=== PATIENT | female | born 1935 | race Caucasian/White ===

== ENCOUNTER → 2016-11-06 | Outpatient (CLI) | payer OTHER, BC | LOC: BHFA 10:00 | PROVIDERS: ATTEND Internal Medicine Cardiovascular Disease | DX: I50.9 Heart failure, unspecified (principal) ==

== ENCOUNTER 2017-07-10 12:22 | Emergency (ER) | payer OTHER, BC ==
--- NOTE | 2017-07-10 12:33 | CPEKG ---
Heart Rate: 66 RR Interval: 909 P-R Interval: 236 QRSD Interval: 188 QT Interval: 452 QTC Interval: 474 QRS [place]: -79 T Wave [place]: 102 EKG Severity - ABNORMAL ECG - EKG Impression: ATRIAL-VENTRICULAR DUAL-PACED COMPLEXES EKG Impression: FIRST DEGREE AV BLOCK EKG Impression: LVH WITH IVCD, LAD AND SECONDARY REPOL ABNRM Electronically Signed By: Josh Zeng 10-Jul-2017 12:54:01
--- NOTE | 2017-07-10 12:48 | EDPHY ---
H & P Time Seen by Provider: 07/10/17 12:28 HPI/ROS: CHIEF COMPLAINT: Dyspnea, presyncope HISTORY OF PRESENT ILLNESS: The patient presents to the ED via EMS after she experienced an episode of presyncope while walking to lunch. The patient reports she has chronic dyspnea on exertion and does have CHF. She has a pacemaker. She also believes she has a history of coronary artery disease with stenting x2. The patient denies any chest pain, fever, cough or congestion. The patient reports she has not gained weight. She denies any abdominal pain or dysuria. The patient reports that she is currently feeling better. REVIEW OF SYSTEMS: A comprehensive 10 point review of systems is otherwise negative aside from elements mentioned in the history of present illness. Source: Patient Exam Limitations: No limitations - Medical/Surgical History Hx Asthma: No Hx Chronic Respiratory Disease: No Hx Diabetes: Yes Hx Cardiac Disease: Yes Hx Renal Disease: No Hx Cirrhosis: No Hx Alcoholism: No Hx HIV/AIDS: No Hx Splenectomy or Spleen Trauma: No Other PMH: back surgery 2006 and 2008, pacemaker 2006,niddm,stent 2005 and 2015, - Social History Smoking Status: Never smoked - Physical Exam Exam: General Appearance: Alert, no distress Eyes: Pupils equal and round no pallor or injection ENT, Mouth: Mucous membranes moist Respiratory: There are no retractions, lungs are clear to auscultation Cardiovascular: Regular rate and rhythm Gastrointestinal: Abdomen is soft and nontender, no masses, bowel sounds normal Neurological: A&O, normal motor function, normal sensory exam, normal cranial nerves Skin: Warm and dry, no rashes Musculoskeletal: Neck is supple nontender Extremities: symmetrical, full range of motion Constitutional: Initial Vital Signs Temperature (C) 36.7 C 07/10/17 12:44 Heart Rate 67 07/10/17 12:44 Respiratory Rate 16 07/10/17 12:44 Blood Pressure 156/98 H 07/10/17 12:44 O2 Sat (%) 94 07/10/17 12:44 O2 Delivery Mode Room Air Allergies/Adverse Reactions: ofloxacin [From Floxin] Allergy (Intermediate, Verified 07/10/17 12:42) Rash Home Medications: Medication Instructions Recorded Digoxin [Lanoxin 0.125 mg] 0.125 mg PO DAILY 06/18/12 Multivitamins [Multivitamin (*)] 1 each PO DAILY 02/02/13 Herbals/Supplements -Info Only 1 each PO AD 05/20/13 [place]-3 Fatty Acids [Fish Oil 1000 1,000 mg PO DAILY 05/20/13 mg (*)] Levothyroxine [Synthroid 100 mcg 100 mcg PO DAILY06 07/14/15 (*)] Lisinopril [Zestril 5 mg (*)] 5 mg PO HS 07/14/15 Spironolactone [Aldactone 25 MG 25 mg PO SUWE@09 07/14/15 (*)] Clopidogrel Bisulfate [Plavix (*)] 75 mg PO DAILY #30 tab 07/15/15 Torsemide [Demadex] 10 mg PO DAILY10 #30 tab 08/01/15 Aspirin [Aspirin 81mg (*)] 81 mg PO HS 10/19/15 Insulin Glargine [Lantus 100 35 units SC HS 10/19/15 UNITS/ML (*)] glipiZIDE XL [Glucotrol XL 10 MG 10 mg PO DAILY 10/19/15 (*)] Carvedilol Cr [Coreg Cr] 40 mg PO HS #60 cap 10/20/15 Medical Decision Making - Diagnostics EKG Interpretation: EKG: Complete interpretation has been separately recorded in the [email or web address] archive. Summary impression: Paced rhythm, rate 66 Imaging Results: Imaging Impressions Chest X-Ray 07/10/17 12:46 Impression: 1. Stable mild cardiomegaly. 2. Stable prominence of pulmonary vasculature centrally. This can be seen with pulmonary hypertension 3. Coronary artery stents are now seen involving what appear to be the LAD. ED Course/Re-evaluation: The patient presents the ED after an episode of mild dyspnea which resulted in presyncope. She has a history of chronic heart failure. She is not hypoxemic. She has no evidence of any peripheral edema. Patient's chest x-ray demonstrates no evidence of acute failure. The patient's electrolytes, troponin and EKG are unremarkable. The patient was observed in the emergency department without any recurrent arrhythmia. I re-evaluated the patient at 2:00 p.m.. She is feeling comfortable. She would like to be discharged home. She will follow up with her regular bank operations officer Dr. Sam Jaeger as scheduled. Differential Diagnosis: Differential diagnosis considered includes arrhythmia, anemia, metabolic abnormality, heart failure - Data Points Laboratory Results: Laboratory Results 07/10/17 12:22 07/10/17 12:22 07/10/17 07/10/17 12:22 12:22 WBC 7.52 10^3/uL 10^3/uL (3.80-9.50) RBC 4.48 10^6/uL 10^6/uL (4.18-5.33) Hgb 13.6 g/dL g/dL (12.6-16.3) Hct 41.6 % % (38.0-47.0) MCV 92.9 fL fL (81.5-99.8) MCH 30.4 pg pg (27.9-34.1) MCHC 32.7 g/dL g/dL (32.4-36.7) RDW 14.5 % % (11.5-15.2) Plt Count 162 10^3/uL 10^3/uL (150-400) MPV 10.2 fL fL (8.7-11.7) Neut % (Auto) 40.0 % % (39.3-74.2) Lymph % (Auto) 46.0 % H % (15.0-45.0) [place] % (Auto) 11.6 % % (4.5-13.0) Eos % (Auto) 1.1 % % (0.6-7.6) Baso % (Auto) 0.5 % % (0.3-1.7) Nucleat RBC Rel Count 0.0 % % (0.0-0.2) Absolute Neuts (auto) 3.01 10^3/uL 10^3/uL (1.70-6.50) Absolute Lymphs (auto) 3.46 10^3/uL H 10^3/uL (1.00-3.00) Absolute Monos (auto) 0.87 10^3/uL H 10^3/uL (0.30-0.80) Absolute Eos (auto) 0.08 10^3/uL 10^3/uL (0.03-0.40) Absolute Basos (auto) 0.04 10^3/uL 10^3/uL (0.02-0.10) Absolute Nucleated RBC 0.00 10^3/uL 10^3/uL (0-0.01) Immature Gran % 0.8 % % (0.0-1.1) Immature Gran # 0.06 10^3/uL 10^3/uL (0.00-0.10) Sodium 138 mEq/L mEq/L (135-145) Potassium 5.4 mEq/L H mEq/L (3.5-5.2) Chloride 100 mEq/L mEq/L (97-110) Carbon Dioxide 20 mEq/l L mEq/l (22-31) Anion Gap 18 mEq/L H mEq/L (8-16) BUN 24 mg/dL H mg/dL (7-23) Creatinine 1.0 mg/dL mg/dL (0.6-1.0) Estimated GFR 53 Glucose 175 mg/dL H mg/dL (70-100) Calcium 10.1 mg/dL mg/dL (8.5-10.4) Troponin I 0.016 ng/mL ng/mL (0.000-0.034) NT-Pro-B Natriuret Pep 3770 pg/mL H pg/mL (0-450) Departure - Departure Disposition: Home, Routine, Self-Care Clinical Impression: Vasovagal reaction Condition: Good Instructions: Syncope (DC) Additional Instructions: 1. Please return to the ED for any recurrent passing out, chest pain, difficulty breathing or other concerns. 2. Please follow up with your primary care provider as scheduled. Referrals: Sam Jaeger MD [Medical Doctor] - As per Instructions
[2017-07-10 12:50] VITALS: PULSE 67; TEMP 98.1
[2017-07-10 12:53] LABS: PLATELET COUNT 162 10^3/uL (150-400)
[2017-07-10 14:41] VITALS: BP 144/79; RESP 20; O2SAT 93
== END 2017-07-10 14:38 | disposition home or self-care (01) ==
LOC: EDUNIT# → EDBD
DX: R55 Syncope and collapse (principal); E11.9 Type 2 diabetes mellitus without complications; Z79.4 Long term (current) use of insulin; Z79.82 Long term (current) use of aspirin; Z95.0 Presence of cardiac pacemaker

== ENCOUNTER 2017-07-23 07:56 | Observation (INO) | payer OTHER, BC ==
[2017-07-23] MEDS ORDERED: diphenhydrAMINE 25 MG CAP PO ONE (07:59)
[2017-07-23] MEDS ORDERED: DIAZEPAM 5 MG TAB PO ONE (07:59)
[2017-07-23] MEDS ORDERED: NS 1,000 ML IV ONE (07:59)
[2017-07-23] MEDS ORDERED: FAMOTIDINE 20 MG TAB PO ONE (07:59)
[2017-07-23] MEDS ORDERED: ASPIRIN EC 325 MG TAB PO ONE (07:59)
--- NOTE | 2017-07-23 08:31 | CPEKG ---
Heart Rate: 70 RR Interval: 857 P-R Interval: 196 QRSD Interval: 174 QT Interval: 436 QTC Interval: 471 QRS [place]: -80 T Wave [place]: 106 EKG Severity - ABNORMAL ECG - EKG Impression: ATRIAL-VENTRICULAR DUAL-PACED COMPLEXES EKG Impression: IVCD, CONSIDER ATYPICAL RBBB EKG Impression: LVH WITH IVCD, LAD AND SECONDARY REPOL ABNRM Electronically Signed By: Golden Anaya 23-Jul-2017 09:06:47
[2017-07-23 08:53] LABS: PLATELET COUNT 164 10^3/uL (150-400)
[2017-07-23 09:05] LABS: INR 1.2 (0.83-1.16); PROTIME(PATIENT) 15.4 SEC (12.0-15.0)
[2017-07-23] MEDS ORDERED: LIDOCAINE 1% 300 MG/30 ML SDV ONE (09:17)
[2017-07-23] MEDS ORDERED: fentaNYL 100 MCG/2 ML INJ ONE (09:18)
[2017-07-23] MEDS ORDERED: VERAPAMIL 5 MG/2 ML VIAL ONE (09:18)
[2017-07-23] MEDS ORDERED: HEPARIN 10,000 UNIT/10 ML MDV (1,000 UNIT/ML) ONE ×2 (09:18→11:27)
[2017-07-23] MEDS ORDERED: MIDAZOLAM 2 MG/2 ML VIAL ONE (09:18)
[2017-07-23] MEDS ORDERED: IOPAMIDOL (ISOVUE-370) 150 ML BTL IV ONE (09:19)
--- NOTE | 2017-07-23 10:46 | PDPROPOC ---
Sedation Plan of Care Sedation Plan of Care: vital signs stable, mental status noted, patient educated of risks, benefits, alternatives, patient can tolerate sedation ASA Classification: ASA 2 Planned drugs: fentanyl, midazolam Mallampati Score: Class 1 Mallampati Reference Image: Patient passed 3-3-2 rule?: Yes
--- NOTE | 2017-07-23 10:46 | PDHPUP ---
History & Physical Update H&P update statement: This history and physical update is based on an assessment of the patient which was completed after admission or registration (within 24 hours), but prior to the surgery/procedure. H&P update: H&P reviewed & patient examined, no change in patient's condition since H&P completed
[2017-07-23] MEDS ORDERED: ADENOSINE 90 MG/30 ML VIAL IV ONE ×2 (11:00→11:54)
[2017-07-23] MEDS ORDERED: BIVALIRUDIN 250 MG/5 ML VIAL IV ONE (11:14)
[2017-07-23 15:53] LABS: PLATELET COUNT 159 10^3/uL (150-400)
[2017-07-23] MEDS ORDERED: ONDANSETRON DISINTEGRATING 4 MG TAB PO PRN (15:57)
[2017-07-23] MEDS ORDERED: ACETAMINOPHEN 325 MG TAB PO PRN (15:57)
[2017-07-23] MEDS ORDERED: ONDANSETRON 4 MG/2 ML VIAL IVP PRN (15:57)
--- NOTE | 2017-07-23 16:24 | PDGENHP ---
History and Physical - Chief Complaint Acute syncope - History of Present Illness Primary care provider: Dr. Coni Ricci Primary yarn weight and strength tester: Dr. Sam Jaeger HPI: 82-year-old female presenting with acute syncope characterized by loss of consciousness, unresponsiveness, associated with symptoms of lightheadedness, with onset of symptoms after the patient was ambulating back from the bathroom while she was in the CVC following a diagnostic cardiac catheterization. Her blood pressure prior to the event was a systolic of 117, and then as she was assisted back to bed and evaluated, her systolic blood pressure was 40. The patient was notably unresponsive, was unable to complete a neurologic exam, and did desaturate on her supplemental oxygen. Her heart rhythm remained AV paced, and did not become bradycardic. The duration of symptoms was a couple minutes, and upon awakening patient became fearful, began crying, but denied any pain. The hypotension was initially treated by placing the patient in Trendelenberg, and initiating IV fluids. The systolic blood pressure was alleviated by the bed position changes, and was likely not influenced by the small amount of IV fluid she received prior to her systolic blood pressure returning to around 110. History Information - Allergies/Home Medication List Allergies/Adverse Reactions: ofloxacin [From Floxin] Allergy (Intermediate, Verified 07/10/17 12:42) Rash Home Medications: Digoxin [Lanoxin 0.125 mg] 0.125 mg PO DAILY10 06/18/12 [Last Taken 07/22/17] Multivitamins [Multivitamin (*)] 1 each PO DAILY 02/02/13 [Last Taken 07/22/17] Herbals/Supplements -Info Only 1 each PO AD 05/20/13 [Last Taken 07/22/17] [place]-3 Fatty Acids [Fish Oil 1000 mg (*)] 1,000 mg PO DAILY 05/20/13 [Last Taken 07/22/17] Levothyroxine [Synthroid 100 mcg (*)] 100 mcg PO DAILY06 07/14/15 [Last Taken ] Lisinopril [Zestril 5 mg (*)] 5 mg PO HS 07/14/15 [Last Taken 07/22/17] Insulin Glargine [Lantus 100 UNITS/ML (*)] 35 units SC HS 10/19/15 [Last Taken 07/22/17] glipiZIDE XL [Glucotrol XL 10 MG (*)] 20 mg PO DAILY@08 10/19/15 [Last Taken ] Carvedilol Cr [Coreg Cr] 40 mg PO HS 07/16/17 [Last Taken 07/22/17] Ibuprofen [Motrin (*)] 400 mg PO Q8 PRN 07/16/17 [Last Taken 07/22/17] Torsemide [Demadex 10 MG (RX)] 5 mg PO DAILY10 07/16/17 [Last Taken 07/22/17] I have personally reviewed and updated: family history, medical history, social history, surgical history - Past Medical History coronary artery disease (With previous cardiac stents, most recently in June 2015), CHF (Chronic systolic and diastolic congestive heart failure stage CAtrial tachycardiaCataractsDiabetes mellitus type 2DiverticulitisHypertensionHypothyroidismSick sinus syndromePulmonary hypertensionChronic segmental pulmonary emboli not on systemic anticoagulation) - Surgical History Additional surgical history: Appendectomy, tonsillectomy, partial sigmoidectomy , cholecystectomy. Back surgery x2. Knee surgery - Family History Additional family history: Both parents are , family history of heart disease, leukemia, uterine cancer - Social History Smoking Status: Never smoked Alcohol Use: None Drug Use: None Additional social history: Normally independent in ADLs Review of Systems Review of Systems: ROS: 10pt was reviewed & negative except for what was stated in HPI & below Neurological: Reports: other (Syncope, unresponsiveness) Physical Exam Physical Exam: Constitutional: appears nourished, not in pain, No no apparent distress (Mild distress), No uncomfortable Eyes: PERRL, anicteric sclera, EOMI Ears, Nose, Mouth, Throat: moist mucous membranes, hearing normal, ears appear normal, no oral mucosal ulcers Cardiovascular: systolic murmur (1/6 at the sternum), No irregularly irregular, No tachycardia, No edema Respiratory: no respiratory distress, no rales or rhonchi, clear to auscultation Gastrointestinal: normoactive bowel sounds, soft, non-tender abdomen, no palpable masses, other (No abdominal bruits), No distension Skin: other (No fluctuance at the right groin site, no ecchymoses) Neurologic: AAOx3, sensation intact bilaterally, CN II-XII Intact, No weakness ( Motor strength 5/5 bilateral upper and lower extremities), No facial droop Psychiatric: not encephalopathic, anxious, No agitated Lab Data & Imaging Review 07/23/17 13:45 07/23/17 13:45 WBC 7.08 10^3/uL (3.80-9.50) 07/23/17 13:45 RBC 4.10 10^6/uL (4.18-5.33) L 07/23/17 13:45 Hgb 12.4 g/dL (12.6-16.3) L 07/23/17 13:45 Hct 37.8 % (38.0-47.0) L 07/23/17 13:45 MCV 92.2 fL (81.5-99.8) 07/23/17 13:45 MCH 30.2 pg (27.9-34.1) 07/23/17 13:45 MCHC 32.8 g/dL (32.4-36.7) 07/23/17 13:45 RDW 14.4 % (11.5-15.2) 07/23/17 13:45 Plt Count 159 10^3/uL (150-400) 07/23/17 13:45 MPV 10.2 fL (8.7-11.7) 07/23/17 13:45 Neut % (Auto) 35.7 % (39.3-74.2) L 07/23/17 13:45 Lymph % (Auto) 49.4 % (15.0-45.0) H 07/23/17 13:45 [place] % (Auto) 12.7 % (4.5-13.0) 07/23/17 13:45 Eos % (Auto) 1.0 % (0.6-7.6) 07/23/17 13:45 Baso % (Auto) 0.6 % (0.3-1.7) 07/23/17 13:45 Nucleat RBC Rel Count 0.0 % (0.0-0.2) 07/23/17 13:45 Absolute Neuts (auto) 2.53 10^3/uL (1.70-6.50) 07/23/17 13:45 Absolute Lymphs (auto) 3.50 10^3/uL (1.00-3.00) H 07/23/17 13:45 Absolute Monos (auto) 0.90 10^3/uL (0.30-0.80) H 07/23/17 13:45 Absolute Eos (auto) 0.07 10^3/uL (0.03-0.40) 07/23/17 13:45 Absolute Basos (auto) 0.04 10^3/uL (0.02-0.10) 07/23/17 13:45 Absolute Nucleated RBC 0.00 10^3/uL (0-0.01) 07/23/17 13:45 Immature Gran % 0.6 % (0.0-1.1) 07/23/17 13:45 Immature Gran # 0.04 10^3/uL (0.00-0.10) 07/23/17 13:45 PT 15.4 SEC (12.0-15.0) H 07/23/17 08:40 INR 1.20 (0.83-1.16) H 07/23/17 08:40 Sodium 138 mEq/L (135-145) 07/23/17 13:45 Potassium 4.9 mEq/L (3.5-5.2) 07/23/17 13:45 Chloride 102 mEq/L (97-110) 07/23/17 13:45 Carbon Dioxide 24 mEq/l (22-31) 07/23/17 13:45 Anion Gap 12 mEq/L (8-16) 07/23/17 13:45 BUN 18 mg/dL (7-23) 07/23/17 13:45 Creatinine 0.9 mg/dL (0.6-1.0) 07/23/17 13:45 Estimated GFR 60 07/23/17 13:45 Glucose 90 mg/dL (70-100) 07/23/17 13:45 Calcium 9.1 mg/dL (8.5-10.4) 07/23/17 13:45 Magnesium 2.4 mg/dL (1.6-2.3) H 07/23/17 08:40 Triglycerides 154 mg/dL (35-135) H 07/23/17 08:40 Cholesterol 163 mg/dL (140-220) 07/23/17 08:40 Cholesterol Risk Factr 1.6 (0.2-1.0) H 07/23/17 08:40 LDL Cholesterol, Calc 103 mg/dL (80-100) H 07/23/17 08:40 LDL Risk Factor 1.2 (0.2-1.0) H 07/23/17 08:40 VLDL Cholesterol 30 mg/dL (8-25) H 07/23/17 08:40 Non-HDL Cholesterol 133 mg/dL (90-129) H 07/23/17 08:40 HDL Cholesterol 30 mg/dL (40-85) L 07/23/17 08:40 LDL/HDL Ratio 3.43 RATIO (1.00-3.22) H 07/23/17 08:40 Cholesterol/HDL Ratio 5.43 RATIO (1.00-4.44) H 07/23/17 08:40 Visualized and Interpreted EKG results: Yes EKG Interpretation: Positive for: other (AV paced) Assessment & Plan Assessment: 82-year-old female presents with acute syncope Plan: 1. Syncope. Acute, recurrent, this episode was most likely secondary to acute hypotension which may have been secondary to a vasovagal event exacerbated by hypovolemia, given that her systolic blood pressure rapidly dropped from around 117 to 40, then returning to 110, with minimal intervention. Event took place after the patient and use the bathroom and had been NPO all day. -that being said, I reviewed outside records including history and physical by Dr. Sam Jaeger from 07/15/2017, characterizing the reason for cardiac catheterization which is that the patient has been experiencing exertional shortness of breath with syncope, 3 episodes since early May with associated heart rate,, and it is possible that the patient's syncope is secondary to exertional hypoxia in the setting of chronic pulmonary embolism, as the patient has notably had pulmonary embolism diagnosed on repeat CT angio, as most recent as September of 2015, and has not been on any systemic anticoagulation -at the present time, I will risk stratify her with a D-dimer, given that the patient recently underwent CT with IV contrast of the abdomen to rule out retroperitoneal hemorrhage status post catheterization -if the D-dimer is positive, I will discuss with the cardiology service whether to empirically systemically anticoagulated her, given her recent cardiac catheterization and risk of bleeding, until we are able to obtain either a CT angio of the chest tomorrow or a V/Q scan -the read of the CT of the abdomen is currently pending and I will follow this up to ensure no retroperitoneal hemorrhage -continue monitor blood pressure closely in the PCU -continue to hold any antihypertensive medications 2. Chronic systolic and diastolic congestive heart failure. No evidence of acute exacerbation, currently has NYHA class III and this could also be a cause of her exertional symptoms with pulmonary hypertension noted on the cardiac catheterization today 3. Coronary artery disease. Chronic, no evidence of obstructive lesions on today's catheterization, continue home medications 4. Chronic hypoxic respiratory failure. Continue home supplemental oxygen 5. Sick sinus syndrome. Status post permanent pacemaker, continue monitor on telemetry overnight Diet. Cardiac Prophylaxis. High risk patient, Lovenox 40, may systemically anticoagulated depending on results of above Code. Full at present Disposition. Anticipated discharge is 07/24, pending further workup as outlined above. 45 min of critical care time spent were with this patient, responding to bedside stat team call, evaluating the patient emergently for the issues outlined above including hypotension. Although a stroke team was initially called secondary to her unresponsiveness, after evaluating the patient, I do not believe that the patient is experiencing acute CVA and I do not believe that the stroke protocol is indicated at this time. I have communicated this to the ICU charge nurse, the Tarik, the audience coordinator.
[2017-07-23] MEDS ORDERED: IBUPROFEN 200 MG TAB PO PRN (16:35)
--- NOTE | 2017-07-23 17:07 | PDDXCAT ---
Diagnostic Cath Note - . Date: 07/23/17 Inker: Mil High-risk criteria on non-invasive testing: severe resting left ventricular dysfunction (LVEF<35%) - Procedure Access: right groin Procedure: left heart catheterization, coronary angiography, left ventriculogram , right heart catheterization - Materials Left Heart Cath size: 5F Left Heart Cath materials: standard multipack (JL4, JR4, pigtail) Right Heart Cath size: 7F Right Heart Cath materials: PWP catheter - Findings-Left Heart Catheterization LM: Unobstructed LAD: Stents widely patent with luminal irregularities LCX: Stents patent with luminal irregularities RCA: Dominant: No obstructive lesion identified. EDP: 15 mm of mercury LVEF: 25% with anterior apical dyskinesis - Findings-Right Heart Catheterization RA: 10 mm of mercury RV: 85/12 mm of mercury PA: 85/14 mm of mercury PAOP: 15 mm of mercury Complications: None Estimated blood loss: <50ml Closure method: Angioseal Assessment: Pulmonary hypertension. Patent site of prior stenting. Severe LV dysfunction EF 25% with anteroapical dyskinesis. Plan: Vaso dilator trial. Considerations for Bi V upgrade. Intervention: After reviewing diagnostic right heart catheterization patient was administered adenosine at 50 micrograms/kilos per minute this dose was increased by 50 micrograms/kilos per minute in 2 minutes intervals. At maximum hyperemia there was no significant change in pulmonary artery pressure. New Conclusions negative vaso dilator trial for reversible pulmonary hypertension. Patient Problems: Problems Problem Status Onset CAD (coronary artery disease) Acute Sick sinus syndrome Acute Diabetes mellitus type 2 in obese Acute Pneumonia Acute Elevated troponin Acute Pulmonary embolism Acute
[2017-07-23] MEDS ORDERED: LACTULOSE 20 GM/30 ML UDCUP PO PRN (18:51)
[2017-07-23] MEDS ORDERED: POLYETHYLENE GLYCOL 3350 17 GM PKT PO PRN (18:51)
[2017-07-23] MEDS ORDERED: BISACODYL 10 MG SUPP PR PRN (18:51)
[2017-07-23] MEDS ORDERED: MAGNESIUM HYDROXIDE 30 ML UDCUP PO PRN (18:51)
[2017-07-23] MEDS ORDERED: OXYMETAZOLINE 30 ML NASAL SPRAY EACHNARE PRN (19:59)
[2017-07-23] MEDS ORDERED: INSULIN GLARGINE 35 UNIT SC SCH (21:00)
[2017-07-23] MEDS ORDERED: INSULIN GLARGINE 100 UNITS/ML UNIT SC SCH (21:00)
[2017-07-23] MEDS ORDERED: CARVEDILOL CR 20 MG CAP PO SCH (21:00)
[2017-07-23] MEDS ORDERED: CARVEDILOL CR 40 MG CAP PO SCH (21:30)
[2017-07-23] MEDS: SENNOSIDES/DOCUSATE SODIUM TAB PO SCH (21:43)
[2017-07-24 04:31] LABS: PLATELET COUNT 130 10^3/uL (150-400)
[2017-07-24] MEDS ORDERED: LEVOTHYROXINE 100 MCG TAB PO SCH (06:00)
[2017-07-24] MEDS: SENNOSIDES/DOCUSATE SODIUM TAB PO SCH (07:33)
[2017-07-24 08:27] VITALS: RESP 18; TEMP 97.6; O2SAT 95
[2017-07-24] MEDS ORDERED: OMEGA-3 FATTY ACIDS 1,000 MG CAP PO SCH (09:00)
[2017-07-24] MEDS ORDERED: MULTIVITAMINS 1 EACH TAB PO SCH (09:00)
[2017-07-24] MEDS ORDERED: ENOXAPARIN 40 MG/0.4 ML SYR SC SCH (09:00)
[2017-07-24 09:44] VITALS: BP 120/55
[2017-07-24 09:56] VITALS: PULSE 69
[2017-07-24] MEDS ORDERED: DIGOXIN 125 MCG TAB PO SCH (10:00)
[2017-07-24] MEDS ORDERED: TORSEMIDE 10 MG TAB PO SCH (10:00)
--- NOTE | 2017-07-24 10:21 | PDDCSUM ---
Discharge Summary Discharge Summary: Admission date: 07/23/2017. Disc. knowles date: 07/24/2017. Admission diagnosis shortness of breath Discharge diagnosis 1. Primary pulmonary hypertension without vaso reactivity. 2. Coronary artery disease with revascularization of the LAD and circumflex. 3. Permanent pacemaker 4. 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 5. Chronic back pain. Follow-up Mil 10 days initiation of Bosentan. Procedures: Left right heart catheterization administration of adenosine as vaso dilator challenge. CT scan of the abdomen rule out retroperitoneal bleed. Complications: Vaso vagal event postprocedure. Hospital course: Patient was admitted to the hospital electively for right and left heart catheterization for assessment of progressive dyspnea on exertion. Her stents were found to be widely patent. There was severe LV dysfunction with anterior apical dyskinesis and is an ejection fraction of 25%. Her wedge pressure was 15 mm of mercury as was her LVEDP. Pulmonary artery pressure however was 83/20. As a result she was administered adenosine as a vaso reactive challenge. She was nonreactive. Post procedure she was in recovery when she went up to the bathroom she became lightheaded and somewhat dizzy. There was a question of a stroke. Stroke alert was activated. She was found to have a vasovagal event only. She returned to normal without complications. She was observed overnight with stable hemodynamics. Laboratory data showed no drop in hematocrit. CT of the abdomen revealed no retroperitoneal bleed. Patient is discharged home with follow-up as outlined above. Will focus on her primary pulmonary hypertension at this point. Considerations for biventricular pacing to correct anterior apical dyskinesis. At this point with a wedge of 15 I am not sure how much this would add. Encourage daily activity with clinical follow-up. Questions were answered with her and her family.
--- NOTE | 2017-07-24 10:37 | ASMTCASEMG ---
Living Arrangements What is your living Answers: With Spouse arrangement? Who do you live with? Type Of Residence What kind of residence do Answers: House you live in? Discharge Plan Comments Coordination Status Comments Notes: Pts case discussed in morning rounds. Pt is a 82 y/o female admitted for fatigue and chest pain. CM spoke w/ FADI [place]. Pt has been ambulating around independently. Pt should not have any therapy needs at this time. CM available for changes. Plan: Independent Date Signed: 07/24/2017 10:36 AM Electronically Signed By:MAURY Childers
--- NOTE | 2017-07-24 11:16 | PDHOMEO2F ---
Home Oxygen Face to Face Home Orders: I certify that a physician or a nurse practitioner or physician's seed laboratory assistant has had a [id number] encounter with this patient on the date of this order due to the diagnosis listed, which relates to the primary reason the patient requires home oxygen. Alternative treatments have been tried, or considered, and deemed ineffective. It is anticipated that supplemental oxygen will result in improvement with treatment. Home oxygen qualifying diagnosis: Pulmonary hypertension. Primary severe Home oxygen secondary diagnosis: Cardiomyopathy and heart failure SpO2 on room air (%): 84 Frequency of home oxygen needed: continuous Home oxygen liters per minute: 2 Home oxygen delivery device: nasal cannula Concentrator: Yes E-tanks for mobility and back up: Yes If ordering portable O2, is the patient mobile in the home?: Yes I certify that, based on these findings, the home oxygen is medically necessary for this patient for the following length of time. Length of time home oxygen needed: 99 years
--- NOTE | 2017-07-24 12:21 | PDIAF ---
- Diagnosis Diagnosis: syncope Code Status: Full Code - Medication Management Discharge Medications: Medications to Continue on Transfer Digoxin [Lanoxin 0.125 mg] 0.125 mg PO DAILY10 06/18/12 [Last Taken 07/22/17] Multivitamins [Multivitamin (*)] 1 each PO DAILY 02/02/13 [Last Taken 07/22/17] Herbals/Supplements -Info Only 1 each PO AD 05/20/13 [Last Taken 07/22/17] [place]-3 Fatty Acids [Fish Oil 1000 mg (*)] 1,000 mg PO DAILY 05/20/13 [Last Taken 07/22/17] Levothyroxine [Synthroid 100 mcg (*)] 100 mcg PO DAILY06 07/14/15 [Last Taken ] Lisinopril [Zestril 5 mg (*)] 5 mg PO HS 07/14/15 [Last Taken 07/22/17] Insulin Glargine [Lantus 100 UNITS/ML (*)] 35 units SC HS 10/19/15 [Last Taken 07/22/17] glipiZIDE XL [Glucotrol XL 10 MG (*)] 20 mg PO DAILY@08 10/19/15 [Last Taken ] Carvedilol Cr [Coreg Cr] 40 mg PO HS 07/16/17 [Last Taken 07/22/17] Ibuprofen [Motrin (*)] 400 mg PO Q8 PRN 07/16/17 [Last Taken 07/22/17] Torsemide [Demadex 10 MG (RX)] 5 mg PO DAILY10 07/16/17 [Last Taken 07/22/17] Oxymetazoline HCl [Afrin Nasal [place] (OTC)] 2 sprays EACHNARE HS PRN 07/23/17 [ Last Taken 07/22/17] Discharge Medications: Refer to the Discharge Home Medication list for PRN reason. - Orders Services needed: Home Care, Physical Therapy Home Care Face to Face: I certify that this patient was under my care and that I had the required [id number] encounter meeting the encounter requirements on the discharge day. My findings support the fact that the patient is homebound as defined in Home Care Face to Face Continued: CMS Chapter 7 Medicare Benefits Manual 30.1.1 , The condition of the patient is such that there exists a normal inability to leave home and consequently, leaving home would require a considerable and taxing effort. Diet Recommendation: no restrictions on diet Diet Texture: Regular Texture Diet - Follow Up Care Current Providers and Referrals: Coni Ricci DO [Primary Care Provider] - Sam Jaeger MD [Medical Doctor] - follow up in 10 days
--- NOTE | 2017-07-25 14:30 | ASDISCHSUM ---
Discharge Information Plan Status:Home with Home Health Medically Cleared to Leave:07/23/2017 Discharge Date:07/24/2017 02:00 PM CM D/C Disposition: ADT D/C Disposition:Home, Routine, Self-Care Projected Discharge Date:07/24/2017 11:00 AM Transportation at D/C: Discharge Delay Reason: Follow-Up Date:07/24/2017 11:00 AM Discharge Slot: Final Diagnosis: Placement Information Referral Type:*Home Health Care Services Referral ID:[id number] Provider Name:[facility] Address 1:[address] [place] [address] Address 2: City:[place] Selection Factors: State:[place] Patient Contact Information Contact Name:DAMON Relationship: Address:[address] City:[place] Alternate Phone: State/Zip Code:[place] [address] Email: Financial Information Financial Class:Medicare Primary Plan Desc:MEDICARE OUTPATIENT Primary Plan Number:[id number] Secondary Plan Desc:[employer] [facility] Secondary Plan Number:[id number] Assessment Information [facility] Initial CM Assessment Living Arrangements What is your living Answers: With Spouse arrangement? Who do you live with? Type Of Residence What kind of residence do Answers: House you live in? Discharge Plan Comments Coordination Status Comments Notes: Pts case discussed in morning rounds. Pt is a 82 y/o female admitted for fatigue and chest pain. CM spoke w/ FADI [place]. Pt has been ambulating around independently. Pt should not have any therapy needs at this time. CM available for changes. Plan: Independent Date Signed: 07/24/2017 10:36 AM Electronically Signed By:MAURY Childers Case Management Discharge Plan Note Case Management Discharge Discharge Order Complete? Answers: Yes Patient to Obtain Answers: Independently Medications Transportation Arranged Answers: Family/Friends EMTALA Complete Answers: No Case Management Transport Answers: No Form Complete Faxed Final Orders Answers: Yes Agency/Facility Transfer Answers: Yes Report Printed & Faxed to Receiving Agency Family Notified Answers: Yes Discharge Comments Notes: CM spoke w/ Floresita, the physical therapist. Floresita is recommending HC. CM met w/ pt and daughter for dispo planning. Pt is agreeable to having HC through [facility]. Referral made to [facility]. [facility] is able to accept. CM provided phone number to give report to FADI Mayberry. CM available for changes. Plan: HC; PT Date Signed: 07/24/2017 12:44 PM Electronically Signed By:MAURY Childers Intervention Information Intervention Type:*VICTOR HUGO-Signed Date of Service:07/24/2017 10:31 AM Patient Type:Observation Staff Member:Katie Sebastian Hours: Discipline: Severity: Comment:
== END 2017-07-24 14:00 | disposition home health service (06) ==
LOC: FCATH 07:56 → F2W 15:37
PROVIDERS: ADMIT Internal Medicine; ATTEND Internal Medicine Interventional Cardiology
DX: R55 Syncope and collapse (principal); I27.0 Primary pulmonary hypertension; I50.42 Chronic combined systolic (congestive) and diastolic (congestive) heart failure; E86.1 Hypovolemia; I95.9 Hypotension, unspecified; J96.11 Chronic respiratory failure with hypoxia; R53.83 Other fatigue; I25.10 Atherosclerotic heart disease of native coronary artery without angina pectoris; I25.5 Ischemic cardiomyopathy; G89.29 Other chronic pain; I27.82 Chronic pulmonary embolism; M54.9 Dorsalgia, unspecified; E11.9 Type 2 diabetes mellitus without complications; E03.9 Hypothyroidism, unspecified; R40.2413 Glasgow coma scale score 13-15, at hospital admission; I49.5 Sick sinus syndrome; Z82.49 Family history of ischemic heart disease and other diseases of the circulatory system; Z79.4 Long term (current) use of insulin; Z79.82 Long term (current) use of aspirin; Z95.5 Presence of coronary angioplasty implant and graft; Z95.0 Presence of cardiac pacemaker; Z99.81 Dependence on supplemental oxygen
CPT/HCPCS: 74176; 93005; 93460; 93463; 97161; C1760; C1769; G0378; G0379; G8978; G8979; G8980; J0153; J1644; J1650; J1815; J2250; J3010; Q9967; J0583

== ENCOUNTER → 2018-01-09 | Outpatient (CLI) | payer OTHER, BC | LOC: CIMAGING 16:33 | PROVIDERS: ATTEND Family Medicine | DX: I50.22 Chronic systolic (congestive) heart failure (principal); R10.9 Unspecified abdominal pain; R14.0 Abdominal distension (gaseous) | CPT/HCPCS: 71046-PO; 74018-PO ==

== ENCOUNTER 2018-04-11 00:17 | Observation (INO) | payer OTHER, BC ==
--- NOTE | 2018-04-11 00:25 | EDPHY ---
H & P Time Seen by Provider: 04/11/18 00:21 HPI/ROS: Chief Complaint: Chest pain HPI: 83-year-old woman woke with substernal chest pain, 03/04 this morning. Patient states she has been under a great deal of stress lately as her ' s recently in the hospital. Pain is described as a tightness in her central chest. It is much better now after receiving fentanyl from EMS. She arrived as a cardiac alert based on concerning ECG changes per EMS. She also complains of having increasing fatigue. She had a similar episode 2 years ago and was evaluated had negative workup at that time. No fevers or chills. No cough. No nausea or vomiting. She is currently pain-free. ROS: 10 systems were reviewed and were negative except those elements noted in the HPI. PMH: Pacemaker Social History: No smoking, no alcohol, no recreational drug use Family History: non-contributory Physical Exam: Gen: Awake, Alert, No Distress HEENT: Nose: no rhinorrhea Eyes: PERRLA, EOMI Mouth: Moist mucosa Neck: Supple, no JVD Chest: nontender, lungs clear to auscultation Heart: S1, S2 normal, no murmur Abd: Soft, non-tender, no guarding Back: no CVA tenderness, no midline tenderness Ext: no edema, non-tender Skin: no rash Neuro: CN II-XII intact, Sensation grossly intact, Strength 5/5 in bilateral upper and lower extremities - Medical/Surgical History Hx Asthma: No Hx Chronic Respiratory Disease: No Hx Diabetes: Yes Hx Cardiac Disease: Yes Hx Renal Disease: No Hx Cirrhosis: No Hx Alcoholism: No Hx HIV/AIDS: No Hx Splenectomy or Spleen Trauma: No Other PMH: back surgery 2006 and 2008, pacemaker 2006,sss, niddm,stent 2005 and 2015, CAD, Diabetes, CHF, HTN, hypothyroidism - Social History Smoking Status: Never smoked Constitutional: Initial Vital Signs Temperature (C) 36.3 C 04/11/18 00:19 Heart Rate 69 04/11/18 00:19 Respiratory Rate 16 04/11/18 00:19 Blood Pressure 150/75 H 04/11/18 00:19 O2 Sat (%) 97 04/11/18 00:19 O2 Delivery Mode Nasal Cannula O2 (L/minute) 2 Allergies/Adverse Reactions: ofloxacin Allergy (Unknown, Verified 01/07/18 15:42) Rash Home Medications: Medication Instructions Recorded Digoxin [Lanoxin 0.125 mg] 0.125 mg PO DAILY10 06/18/12 Multivitamins [Multivitamin (*)] 1 each PO DAILY 02/02/13 Herbals/Supplements -Info Only 1 each PO AD 05/20/13 [place]-3 Fatty Acids [Fish Oil 1000 1,000 mg PO DAILY 05/20/13 mg (*)] Levothyroxine [Synthroid 100 mcg 100 mcg PO DAILY06 07/14/15 (*)] Lisinopril [Zestril 5 mg (*)] 5 mg PO HS 07/14/15 Insulin Glargine [Lantus 100 35 units SC HS 10/19/15 UNITS/ML] glipiZIDE XL [Glucotrol XL 10 MG 20 mg PO DAILY@08 10/19/15 (*)] Carvedilol Cr [Coreg Cr] 40 mg PO HS 07/16/17 Ibuprofen [Motrin (*)] 400 mg PO Q8 PRN 07/16/17 Torsemide [Demadex 10 MG (RX)] 5 mg PO DAILY10 07/16/17 Oxymetazoline HCl [Afrin Nasal 2 sprays EACHNARE HS PRN 07/23/17 [place] (OTC)] Medical Decision Making - Diagnostics EKG Interpretation: ECG time 12:15 a.m., ventricularly paced rhythm ED Course/Re-evaluation: 83-year-old with a history of coronary disease presenting with substernal chest pain. She has a paced rhythm. Troponin is negative. Patient is pain free. She received aspirin by EMS. She will be admitted to the hospitalist service for cardiac rule out. - Data Points Laboratory Results: Laboratory Results 04/11/18 00:38 04/11/18 00:38 04/11/18 04/11/18 04/11/18 00:38 00:38 00:23 WBC 6.31 10^3/uL 10^3/uL (3.80-9.50) RBC 4.27 10^6/uL 10^6/uL (4.18-5.33) Hgb 12.6 g/dL g/dL (12.6-16.3) Hct 37.7 % L % (38.0-47.0) MCV 88.3 fL fL (81.5-99.8) MCH 29.5 pg pg (27.9-34.1) MCHC 33.4 g/dL g/dL (32.4-36.7) RDW 16.0 % H % (11.5-15.2) Plt Count 171 10^3/uL 10^3/uL (150-400) MPV 10.6 fL fL (8.7-11.7) Neut % (Auto) 30.3 % L % (39.3-74.2) Lymph % (Auto) 52.9 % H % (15.0-45.0) [place] % (Auto) 14.9 % H % (4.5-13.0) Eos % (Auto) 1.1 % % (0.6-7.6) Baso % (Auto) 0.5 % % (0.3-1.7) Nucleat RBC Rel Count 0.0 % % (0.0-0.2) Absolute Neuts (auto) 1.91 10^3/uL 10^3/uL (1.70-6.50) Absolute Lymphs (auto) 3.34 10^3/uL H 10^3/uL (1.00-3.00) Absolute Monos (auto) 0.94 10^3/uL H 10^3/uL (0.30-0.80) Absolute Eos (auto) 0.07 10^3/uL 10^3/uL (0.03-0.40) Absolute Basos (auto) 0.03 10^3/uL 10^3/uL (0.02-0.10) Absolute Nucleated RBC 0.00 10^3/uL 10^3/uL (0-0.01) Immature Gran % 0.3 % % (0.0-1.1) Immature Gran # 0.02 10^3/uL 10^3/uL (0.00-0.10) Sodium 137 mEq/L mEq/L (135-145) Potassium 5.1 mEq/L H mEq/L (3.3-5.0) Chloride 100 mEq/L mEq/L (97-110) Carbon Dioxide 24 mEq/l mEq/l (22-31) Anion Gap 13 mEq/L mEq/L (6-14) BUN 26 mg/dL H mg/dL (7-23) Creatinine 0.9 mg/dL mg/dL (0.6-1.0) Estimated GFR 60 Glucose 184 mg/dL H mg/dL (70-100) Calcium 9.8 mg/dL mg/dL (8.5-10.4) POC Troponin I 0.04 ng/mL ng/mL (0.00-0.08) Point of Care Test Results: Chemistry 04/11/18 00:23 POC Troponin I 0.04 ng/mL ng/mL (0.00-0.08) Departure - Departure Disposition: [facility] Inpatient Acute Clinical Impression: Chest pain Condition: Fair Referrals: Patient,NotPresent [Primary Care Provider] - As per Instructions
[2018-04-11 00:59] LABS: PLATELET COUNT 171 10^3/uL (150-400)
[2018-04-11] MEDS ORDERED: ONDANSETRON 4 MG/2 ML VIAL IVP PRN (01:12)
[2018-04-11] MEDS ORDERED: HYDROCODONE/APAP 5/325 TAB PO PRN (01:12)
[2018-04-11] MEDS ORDERED: ACETAMINOPHEN 325 MG TAB PO PRN (01:12)
[2018-04-11] MEDS ORDERED: ONDANSETRON DISINTEGRATING 4 MG TAB PO PRN (01:12)
[2018-04-11] MEDS ORDERED: LORazepam 0.5 MG TAB PO PRN (01:12)
[2018-04-11] MEDS ORDERED: NITROGLYCERIN 0.4 MG BTL SL PRN (01:18)
[2018-04-11 01:38] LABS: INR 1.11 (0.83-1.16); PROTIME(PATIENT) 14.5 SEC (12.0-15.0)
[2018-04-11 05:42] LABS: CREATINE KINASE 45 IU/L (0-156)
--- NOTE | 2018-04-11 06:43 | PDGENHP ---
History and Physical - Chief Complaint Chest pain - History of Present Illness Source-patient provides history appears reliable. EMR was reviewed and case discussed with ED provider. Patient's son and [id number] are at bedside. EMR was reviewed and case discussed with ED provider. HPI-pleasant 83-year-old female with past medical history significant for chronic atrial fibrillation, sick sinus syndrome status post pacer on the right , dm 2, HTN, CAD with history of stenting in 2005 and 2016, chronic nocturnal hypoxia with supplemental O2 at , pulmonary hypertension, CHF, hypothyroidism who presents emergency department today with sudden onset of left-sided chest pressure and tightness. Patient reports she had just walked to the bathroom from bed as she is chronically on diuretics when she suddenly developed her symptoms. It was constant squeezing type pain. Patient denies any associated shortness of breath. No diaphoresis. No nausea or vomiting. Pain did not radiate anywhere. EMS was called and her pain was relieved after she received a dose of fentanyl. Patient denies any anxiety however she does note she has been quite stressed out recently with her having been in the hospital and now back at home with increased care needs. Patient reports that she had been traveling daily to the hospital and has been increasingly become fatigued with exertion. She denies any PND. No lower extremity edema. No orthopnea. Patient denies any cough or shortness of breath had History Information - Allergies/Home Medication List Allergies/Adverse Reactions: ofloxacin Allergy (Unknown, Verified 01/07/18 15:42) Rash Home Medications: Digoxin [Lanoxin 0.125 mg] 0.125 mg PO DAILY10 06/18/12 [Last Taken 07/22/17] Multivitamins [Multivitamin (*)] 1 each PO DAILY 02/02/13 [Last Taken 07/22/17] Herbals/Supplements -Info Only 1 each PO AD 05/20/13 [Last Taken 07/22/17] [place]-3 Fatty Acids [Fish Oil 1000 mg (*)] 1,000 mg PO DAILY 05/20/13 [Last Taken 07/22/17] Levothyroxine [Synthroid 100 mcg (*)] 100 mcg PO DAILY06 07/14/15 [Last Taken ] Lisinopril [Zestril 5 mg (*)] 5 mg PO HS 07/14/15 [Last Taken 07/22/17] Insulin Glargine [Lantus 100 UNITS/ML] 35 units SC HS 10/19/15 [Last Taken 07/22] glipiZIDE XL [Glucotrol XL 10 MG (*)] 20 mg PO DAILY@08 10/19/15 [Last Taken ] Carvedilol Cr [Coreg Cr] 40 mg PO HS 07/16/17 [Last Taken 07/22/17] Ibuprofen [Motrin (*)] 400 mg PO Q8 PRN 07/16/17 [Last Taken 07/22/17] Torsemide [Demadex 10 MG (RX)] 5 mg PO DAILY10 07/16/17 [Last Taken 07/22/17] Oxymetazoline HCl [Afrin Nasal [place] (OTC)] 2 sprays EACHNARE HS PRN 07/23/17 [ Last Taken 07/22/17] I have personally reviewed and updated: family history, medical history, social history, surgical history - Past Medical History coronary artery disease (With previous cardiac stents, most recently in June 2015), CHF (Chronic systolic and diastolic congestive heart failure stage CAtrial tachycardiaCataractsDiabetes mellitus type 2DiverticulitisHypertensionHypothyroidismSick sinus syndromePulmonary hypertensionChronic segmental pulmonary emboli not on systemic anticoagulation) Additional medical history: Chronic Atrial fibrillation, sick sinus syndrome status post pacer, dm 2, HTN, CAD status post stent 2005 2015, systolic and diastolic CHF last echo 2015 EF of 30-35%, hypothyroidism, hard of hearing uses hearing aid, nocturnal hypoxia on supplemental oxygen at HS, pulmonary hypertension, diverticulitis - Surgical History Additional surgical history: Tonsillectomy. partial sigmoidectomy for diverticulitis with concurrent appy. cholecystectomy. Back surgery x2 (2006 and 2008). Knee surgery - Family History Additional family history: Both parents are , family history of heart disease, leukemia, uterine cancer, brothers, sisters and son with history of CHF and pacemakers - Social History Smoking Status: Never smoked Additional social history: Normally independent in ADLs. Patient for nearly 66 years. Lives with her . Children live locally and supportive. Cor status is full code but patient does not want prolonged resuscitation or life support. Review of Systems Review of Systems: ROS: 10pt was reviewed & negative except for what was stated in HPI & below Cardiac: Reports: chest pain. Denies: edema Respiratory: Denies: shortness of breath Neurological: Reports: anxiety (Patient reports significant stressors) Physical Exam Physical Exam: Selected Entries 04/11/18 00:19 Blood Pressure Automatic Method Heart Rate 69 Respiratory 16 Rate O2 Sat (%) 97 Temperature (C) 36.3 C Blood Pressure 150/75 H Mean Arterial 100 Pressure (MAP) O2 (L/minute) 2 O2 Delivery Nasal Cannula Mode Temperature Oral Source Temp Pulse Resp BP Pulse Ox 37.0 C 70 18 127/65 H 94 04/11/18 06:15 04/11/18 06:15 04/11/18 06:15 04/11/18 06:15 04/11/18 06:15 Constitutional: no apparent distress, chronically ill appearing, other (NAD. Pleasant elderly frail-appearing female is lying quietly in bed. Family at bedside.) Eyes: PERRL, anicteric sclera, EOMI Ears, Nose, Mouth, Throat: moist mucous membranes, hard of hearing Cardiovascular: regular rate and rhythym, no murmur, rub, or gallop (Slightly distant heart sounds.), pulses symmetric bilaterally Peripheral Pulses: 1+: dorsalis-pedis (R), dorsalis-pedis (L) Respiratory: no respiratory distress, no rales or rhonchi, clear to auscultation , reduced air movement (Decreased inspiratory effort bibasilarly. No wheezes or rhonchi.) Gastrointestinal: normoactive bowel sounds, soft, non-tender abdomen, no palpable masses, No distension Genitourinary: no bladder tenderness, No pacheco in urethra Skin: warm, normal color, no rashes or abrasions Musculoskeletal: full muscle strength (Patient able to sit up independently. Moves all extremities while lying in bed.) Neurologic: AAOx3, sensation intact bilaterally, other (Grossly nonfocal exam.) , No facial droop Psychiatric: interacting appropriately, not encephalopathic, thought process linear, anxious, No depressed, No suicidal ideation, No agitated, No poor insight, No poor judgement, No poor memory Lab Data & Imaging Review 04/11/18 00:38 04/11/18 05:25 WBC 6.31 10^3/uL (3.80-9.50) 04/11/18 00:38 RBC 4.27 10^6/uL (4.18-5.33) 04/11/18 00:38 Hgb 12.6 g/dL (12.6-16.3) 04/11/18 00:38 Hct 37.7 % (38.0-47.0) L 04/11/18 00:38 MCV 88.3 fL (81.5-99.8) 04/11/18 00:38 MCH 29.5 pg (27.9-34.1) 04/11/18 00:38 MCHC 33.4 g/dL (32.4-36.7) 04/11/18 00:38 RDW 16.0 % (11.5-15.2) H 04/11/18 00:38 Plt Count 171 10^3/uL (150-400) 04/11/18 00:38 MPV 10.6 fL (8.7-11.7) 04/11/18 00:38 Neut % (Auto) 30.3 % (39.3-74.2) L 04/11/18 00:38 Lymph % (Auto) 52.9 % (15.0-45.0) H 04/11/18 00:38 [place] % (Auto) 14.9 % (4.5-13.0) H 04/11/18 00:38 Eos % (Auto) 1.1 % (0.6-7.6) 04/11/18 00:38 Baso % (Auto) 0.5 % (0.3-1.7) 04/11/18 00:38 Nucleat RBC Rel Count 0.0 % (0.0-0.2) 04/11/18 00:38 Absolute Neuts (auto) 1.91 10^3/uL (1.70-6.50) 04/11/18 00:38 Absolute Lymphs (auto) 3.34 10^3/uL (1.00-3.00) H 04/11/18 00:38 Absolute Monos (auto) 0.94 10^3/uL (0.30-0.80) H 04/11/18 00:38 Absolute Eos (auto) 0.07 10^3/uL (0.03-0.40) 04/11/18 00:38 Absolute Basos (auto) 0.03 10^3/uL (0.02-0.10) 04/11/18 00:38 Absolute Nucleated RBC 0.00 10^3/uL (0-0.01) 04/11/18 00:38 Immature Gran % 0.3 % (0.0-1.1) 04/11/18 00:38 Immature Gran # 0.02 10^3/uL (0.00-0.10) 04/11/18 00:38 PT 14.5 SEC (12.0-15.0) 04/11/18 01:20 INR 1.11 (0.83-1.16) 04/11/18 01:20 APTT 27.5 SEC (23.0-38.0) 04/11/18 01:20 Sodium 137 mEq/L (135-145) 04/11/18 00:38 Potassium 4.9 mEq/L (3.3-5.0) 04/11/18 05:25 Chloride 100 mEq/L (97-110) 04/11/18 00:38 Carbon Dioxide 24 mEq/l (22-31) 04/11/18 00:38 Anion Gap 13 mEq/L (6-14) 04/11/18 00:38 BUN 26 mg/dL (7-23) H 04/11/18 00:38 Creatinine 0.9 mg/dL (0.6-1.0) 04/11/18 00:38 Estimated GFR 60 04/11/18 00:38 Glucose 184 mg/dL (70-100) H 04/11/18 00:38 Calcium 9.8 mg/dL (8.5-10.4) 04/11/18 00:38 Creatine Kinase 45 IU/L (0-156) 04/11/18 05:25 CK-MB (CK-2) Fraction 2.26 ng/mL (0.00-4.55) 04/11/18 05:25 POC Troponin I 0.04 ng/mL (0.00-0.08) 04/11/18 00:23 Troponin I 0.031 ng/mL (0.000-0.034) 04/11/18 05:25 TSH 4.030 uIU/mL (0.465-4.680) 04/11/18 05:25 Visualized and Interpreted EKG results: Yes EKG additional interpertation: The paced rhythm Assessment & Plan Assessment: Pleasant 83-year-old female with past medical history significant for chronic atrial fibrillation, sick sinus syndrome status post pacer on the right, dm 2, HTN, CAD, CHF, hypothyroid, pulmonary hypertension who presents emergency department today with complaints of sudden onset of left chest tightness and pain #Chest pain (Acute) - differential diagnosis including less likely ACS or angina vs. Anxiety versus stress cardiomyopathy vs GI etiology or esophageal spasm vs less likely PE. Patient reports that prior to her onset of symptoms she had taken some milk of magnesia for constipation and GI upset. She has not had any recent anginal type symptoms and her last cardiac catheterization was in 2016. She has not had a stress test since that time. She is followed by [facility] however cannot recall name of her primary shelter case manager at this time. Patient's HEART score is 4. Patient has not had any additional symptoms since prior to arrival after receiving fentanyl. Rule out testing and anticipate a nuclear stress test later this morning. Patient does not have any evidence of CHF decompensation. # CAD - history of stenting x2. Patient is on lisinopril and Coreg # hyperkalemia - mildly elevated patient reports that she is on spironolactone. Holding a.m. Dose, recheck potassium # chronic atrial fibrillation/sick sinus syndrome status post pacer. Patient is not on any anticoagulation. Continue patient's beta larry and digoxin. # chronic diastolic and systolic CHF compensated - patient without any evidence of decompensation. Resume patient's torsemide and spironolactone when diet advanced. #dm 2 - resume patient's glipizide when diet is advanced. She utilizes 35 units of Lantus at HS. Will place patient on a low-dose sliding scale and Accu- Cheks. # benign essential HTN - blood pressures are acceptable at this time. Resume patient's diuretic therapy lisinopril and Coreg when diet advanced. # hypothyroidism - continue patient's levothyroxine replacement. # pulmonary hypertension - continue with diuretic therapy in supplemental oxygen. # nocturnal hypoxia - O2 at HS FEN - SLIV. NPO anticipating stress test in the morning. If negative then transition to cardiac diet. PPX-SCDs. Holding anticoagulation pending stress testing. Cor status-full Disposition-patient admitted observation status on PCU floor for close cardiac monitoring pending cardiac workup.
[2018-04-11] MEDS ORDERED: D50W 25 GM/50 ML SYR IVP PRN (07:07)
[2018-04-11] MEDS: INSULIN LISPRO 100 UNIT/ML SC SCH ×2 (08:59→12:53)
[2018-04-11] MEDS ORDERED: ASPIRIN 325 MG TAB PO SCH (09:00)
--- NOTE | 2018-04-11 11:23 | PDCARCONS ---
Cardiology Consult Reason for Consult: Episode of chest pressure Chief Complaint: Tired Requesting Physician: Hospital service History of Present Illness: 83-year-old female well known to me history of ischemic cardiomyopathy ejection fraction of 30%, last angiogram 2016 revealing a patent LAD stent with 50% distal LAD disease, 85% circumflex stenosis that has been stable. She has been in relatively poor health. This has been complicated by the illness of her . He recently was discharged home where she has had to become a more prominent caregiver. This is in the setting of significant family stress. She was really becoming exhausted. She had an episode of squeezing in her left breast that was self limited. This was associated with profound fatigue and she came to the emergency department today she is still exhausted but had no further discomfort. This pain did not radiate to her arm or jaw is not associated with significant nausea vomiting or diaphoresis. She denies fever or chills. She has had no abdominal pain diarrhea or constipation. She hematemesis or melena. History Information - Allergies/Home Medication List Allergies/Adverse Reactions: ofloxacin Allergy (Unknown, Verified 01/07/18 15:42) Rash Home Medications: Digoxin [Lanoxin 0.125 mg] 0.125 mg PO DAILY@06/18/12 [Last Taken 04/10/18 08 :00] Multivitamins [Multivitamin (*)] 1 tab PO DAILY 02/02/13 [Last Taken 07/22/17] Herbals/Supplements -Info Only 1 each PO 05/20/13 [Last Taken 04/10/18 08:00] [place]-3 Fatty Acids [Fish Oil 1000 mg (*)] 1,000 mg PO DAILY@05/20/13 [Last Taken 04/10/18 08:00] Levothyroxine [Synthroid 100 mcg (*)] 100 mcg PO DAILY06 07/14/15 [Last Taken 08:00] Lisinopril [Zestril 5 mg (*)] 5 mg PO 07/14/15 [Last Taken 04/10/18 21:00] Insulin Glargine [Lantus 100 UNITS/ML] 30 units SC 10/19/15 [Last Taken 04/10 21:00] glipiZIDE XL [Glucotrol XL 10 MG (*)] 20 mg PO DAILY@10/19/15 [Last Taken 08:00] Ibuprofen [Motrin (*)] 400 mg PO Q8 PRN 07/16/17 [Last Taken 04/04/18] Torsemide [Demadex 10 MG (RX)] 5 mg PO DAILY10 07/16/17 [Last Taken 04/09/18] Oxymetazoline HCl [Afrin Nasal [place] (OTC)] 2 sprays EACHNARE HS 07/23/17 [Last Taken 04/10/18 21:00] Carvedilol Phosphate [Coreg Cr] 40 mg PO HS 04/11/18 [Last Taken 04/10/18 21:00] Magnesium Hydroxide [Milk of Magnesia] 30 ml PO Q6H PRN 04/11/18 [Last Taken 21:00] Spironolactone [Aldactone 25 MG (*)] 12.5 mg PO Q2D@09 04/11/18 [Last Taken ] I have personally reviewed and updated: family history, medical history, social history, surgical history Past Medical History: - Past Medical History coronary artery disease - Surgical History Reports: coronary stent - Family History Positive for: non-pertinent - Social History Smoking Status: Never smoked Physical Exam Physical Exam: Temp Pulse Resp BP Pulse Ox 36.6 C 92 18 109/55 L 93 04/11/18 08:20 04/11/18 08:20 04/11/18 08:20 04/11/18 08:20 04/11/18 08:20 Constitutional: not in pain Eyes: anicteric sclera Ears, Nose, Mouth, Throat: dry mucous membranes Cardiovascular: systolic murmur, irregularly irregular Peripheral Pulses: 1+: femoral (R), femoral (L) Respiratory: no respiratory distress, no rales or rhonchi Gastrointestinal: normoactive bowel sounds, soft, non-tender abdomen Genitourinary: no bladder fullness Skin: warm, No rash Musculoskeletal: no muscle tenderness Neurologic: AAOx3, No facial droop Psychiatric: interacting appropriately, depressed Lymph, Heme, Immunologic: no cervical LAD, no supraclavicular LAD Lab and Imaging 04/11/18 00:38 04/11/18 05:25 WBC 6.31 10^3/uL (3.80-9.50) 04/11/18 00:38 RBC 4.27 10^6/uL (4.18-5.33) 04/11/18 00:38 Hgb 12.6 g/dL (12.6-16.3) 04/11/18 00:38 Hct 37.7 % (38.0-47.0) L 04/11/18 00:38 MCV 88.3 fL (81.5-99.8) 04/11/18 00:38 MCH 29.5 pg (27.9-34.1) 04/11/18 00:38 MCHC 33.4 g/dL (32.4-36.7) 04/11/18 00:38 RDW 16.0 % (11.5-15.2) H 04/11/18 00:38 Plt Count 171 10^3/uL (150-400) 04/11/18 00:38 MPV 10.6 fL (8.7-11.7) 04/11/18 00:38 Neut % (Auto) 30.3 % (39.3-74.2) L 04/11/18 00:38 Lymph % (Auto) 52.9 % (15.0-45.0) H 04/11/18 00:38 [place] % (Auto) 14.9 % (4.5-13.0) H 04/11/18 00:38 Eos % (Auto) 1.1 % (0.6-7.6) 04/11/18 00:38 Baso % (Auto) 0.5 % (0.3-1.7) 04/11/18 00:38 Nucleat RBC Rel Count 0.0 % (0.0-0.2) 04/11/18 00:38 Absolute Neuts (auto) 1.91 10^3/uL (1.70-6.50) 04/11/18 00:38 Absolute Lymphs (auto) 3.34 10^3/uL (1.00-3.00) H 04/11/18 00:38 Absolute Monos (auto) 0.94 10^3/uL (0.30-0.80) H 04/11/18 00:38 Absolute Eos (auto) 0.07 10^3/uL (0.03-0.40) 04/11/18 00:38 Absolute Basos (auto) 0.03 10^3/uL (0.02-0.10) 04/11/18 00:38 Absolute Nucleated RBC 0.00 10^3/uL (0-0.01) 04/11/18 00:38 Immature Gran % 0.3 % (0.0-1.1) 04/11/18 00:38 Immature Gran # 0.02 10^3/uL (0.00-0.10) 04/11/18 00:38 PT 14.5 SEC (12.0-15.0) 04/11/18 01:20 INR 1.11 (0.83-1.16) 04/11/18 01:20 APTT 27.5 SEC (23.0-38.0) 04/11/18 01:20 Sodium 137 mEq/L (135-145) 04/11/18 00:38 Potassium 4.9 mEq/L (3.3-5.0) 04/11/18 05:25 Chloride 100 mEq/L (97-110) 04/11/18 00:38 Carbon Dioxide 24 mEq/l (22-31) 04/11/18 00:38 Anion Gap 13 mEq/L (6-14) 04/11/18 00:38 BUN 26 mg/dL (7-23) H 04/11/18 00:38 Creatinine 0.9 mg/dL (0.6-1.0) 04/11/18 00:38 Estimated GFR 60 04/11/18 00:38 Glucose 184 mg/dL (70-100) H 04/11/18 00:38 POC Glucose 105 mg/dL (70-100) H 04/11/18 08:26 Calcium 9.8 mg/dL (8.5-10.4) 04/11/18 00:38 Creatine Kinase 45 IU/L (0-156) 04/11/18 05:25 CK-MB (CK-2) Fraction 2.26 ng/mL (0.00-4.55) 04/11/18 05:25 POC Troponin I 0.04 ng/mL (0.00-0.08) 04/11/18 00:23 Troponin I 0.031 ng/mL (0.000-0.034) 04/11/18 05:25 TSH 4.030 uIU/mL (0.465-4.680) 04/11/18 05:25 A/P Assessment: 83-year-old well known to me with single episode of chest squeezing in the setting of significant family stress, exhaustion caring for her and known coronary disease. Her troponin is negative. She has had no further discomfort. My recommendations are for continued aggressive medical therapy. No indications for further risk stratification with known CAD. She is not unstable with negative troponins at this point. Will repeat a 2nd 1. If this is persistently negative she could be discharged home from a cardiac point of view with ongoing medical therapy and clinical follow-up as an outpatient. She does not appear to be in heart failure without PND orthopnea. Her medications are currently appropriate. Her atrial fibrillation is well controlled. Will clinically follow her here in the hospital and after discharge. Plan: Continued medical therapy. Discharge when medically stable. Outpatient clinical follow-up. No indications for further testing. Review of Systems Review of Systems: - Review of Systems Constitutional: malaise, weakness, weight loss. denies: chills, fever EENTM: no symptoms reported Respiratory: no symptoms reported Gastrointestinal/Abdominal: no symptoms reported Genitourinary: no symptoms Musculoskelatal: no symptoms Skin: no symptoms Hematologic/Lymphatic: no symptoms reported Immunologic/allergic: no symptoms reported
[2018-04-11 11:45] VITALS: BP 118/62
[2018-04-11] MEDS ORDERED: IBUPROFEN 200 MG TAB PO PRN (13:41)
[2018-04-11] MEDS ORDERED: MAGNESIUM HYDROXIDE 30 ML UDCUP PO PRN (13:41)
[2018-04-11] MEDS ORDERED: OXYMETAZOLINE 30 ML NASAL SPRAY EACHNARE SCH (21:00)
[2018-04-11] MEDS ORDERED: INSULIN GLARGINE 100 UNITS/ML UNIT SC SCH (21:00)
[2018-04-11] MEDS ORDERED: CARVEDILOL CR 40 MG CAP PO SCH (21:00)
[2018-04-11] MEDS ORDERED: LISINOPRIL 5 MG TAB PO SCH (21:00)
[2018-04-12] MEDS ORDERED: LEVOTHYROXINE 100 MCG TAB PO SCH (06:00)
[2018-04-12] MEDS ORDERED: DIGOXIN 125 MCG TAB PO SCH (08:00)
[2018-04-12] MEDS ORDERED: OMEGA-3 FATTY ACIDS 1,000 MG CAP PO SCH (08:00)
[2018-04-12] MEDS ORDERED: MULTIVITAMINS 1 EACH TAB PO SCH (09:00)
[2018-04-12] MEDS ORDERED: SPIRONOLACTONE 25 MG TAB PO SCH (09:00)
[2018-04-12] MEDS ORDERED: TORSEMIDE 10 MG TAB PO SCH (10:00)
== END 2018-04-11 15:12 | disposition home or self-care (01) ==
LOC: EDUNIT# → F2W 06:17
PROVIDERS: ADMIT Family Medicine; ATTEND Family Medicine
DX: R07.9 Chest pain, unspecified (principal); E87.5 Hyperkalemia; I49.5 Sick sinus syndrome; I48.2 Chronic atrial fibrillation; F41.1 Generalized anxiety disorder; I50.42 Chronic combined systolic (congestive) and diastolic (congestive) heart failure; I27.20 Pulmonary hypertension, unspecified; I25.10 Atherosclerotic heart disease of native coronary artery without angina pectoris; I25.5 Ischemic cardiomyopathy; E11.9 Type 2 diabetes mellitus without complications; E03.9 Hypothyroidism, unspecified; Z79.4 Long term (current) use of insulin; Z82.49 Family history of ischemic heart disease and other diseases of the circulatory system; Z95.0 Presence of cardiac pacemaker; Z95.5 Presence of coronary angioplasty implant and graft; Z63.79 Other stressful life events affecting family and household
CPT/HCPCS: 71045; 99285; G0378; J1815; 84484-PO

== ENCOUNTER 2018-08-08 16:12 | Inpatient (IN) | payer OTHER, BC ==
--- NOTE | 2018-08-08 16:54 | CPEKG ---
Test Reason : OPEN Blood Pressure : / mmHG Vent. Rate : 117 BPM Atrial Rate : 117 BPM P-R Int : 122 ms QRS Dur : 192 ms QT Int : 419 ms P-R-T Axes : 000 -79 104 degrees QTc Int : 585 ms Ventricular-paced rhythm Confirmed by Joe Macedo ([id number]) on 08/08/2018 4:53:48 PM Referred By: PHYSICIAN ED Confirmed By:Joe Macedo
[2018-08-08] MEDS ORDERED: NS 500 ML IV ONE (16:56)
--- NOTE | 2018-08-08 16:58 | EDPHY ---
H & P Stated Complaint: Chest pain x 3 days Time Seen by Provider: 08/08/18 16:49 HPI/ROS: CHIEF COMPLAINT: Chest pain HISTORY OF PRESENT ILLNESS: The patient is an 83-year-old female with a history of ischemic cardiomyopathy with ejection fraction 30%. Her last angiogram was in 2015 no revealed a patent LAD stent with a 50% distal occlusion that was stented. She also has an 85% circumflex stenosis that is been stable. She also has a pacemaker in place. She has a history of AFib. She is not on blood thinners because she did not like the bruising. She has frequent episodes of chest pain often to do with family stressors. She states that for the last 3 days she has had mild right-sided chest pain. She presents to the emergency department today with her family complaining of persistent discomfort. It does not radiate. No shortness of breath. Also occasional nausea and abdominal pain. She also complains that her pacemaker has been pacing her faster for the last couple of days. Severity: Moderate Modifying factors: Did take an aspirin today but no improvement REVIEW OF SYSTEMS: Constitutional: denies: chills, fever, recent illness, recent injury EENTM: denies: blurred vision, double vision, nose congestion Respiratory: denies: cough, shortness of breath Cardiac: See HPI denies: irregular heart rate, lightheadedness, palpitations Gastrointestinal/Abdominal: denies: abdominal pain, diarrhea, nausea, vomiting, blood streaked stools Genitourinary: denies: dysuria, frequency, hematuria, pain Musculoskeletal: denies: joint pain, muscle pain Skin: denies: lesions, rash, jaundice, bruising Neurological: denies: headache, numbness, paresthesia, tingling, dizziness, weakness Hematologic/Lymphatic: denies: blood clots, easy bleeding, easy bruising Immunologic/allergic: denies: HIV/AIDS, transplant 10 systems reviewed and negative except as noted EXAM: GENERAL: Well-appearing, well-nourished and in no acute distress. HEAD: Atraumatic, normocephalic. EYES: Pupils equal round and reactive to light, extraocular movements intact, sclera anicteric, conjunctiva are normal. ENT: TMs normal, nares patent, oropharynx clear without exudates. Moist mucous membranes. NECK: Normal range of motion, supple without lymphadenopathy or JVD. LUNGS: Breath sounds clear to auscultation bilaterally and equal. No wheezes rales or rhonchi. HEART: Tachycardic, no murmurs or rubs ABDOMEN: Soft, nontender, normoactive bowel sounds. No guarding, no rebound. No masses appreciated. BACK: No CVA tenderness, no spinal tenderness, step-offs or deformities EXTREMITIES: Normal range of motion, no pitting or edema. No clubbing or cyanosis. NEUROLOGICAL: Cranial nerves II through XII grossly intact. Normal speech, normal gait. 5/5 strength, normal movement in all extremities, normal sensation , normal reflexes PSYCH: Normal mood, normal affect. SKIN: Warm, dry, normal turgor, no visible rashes or lesions. Source: Patient, Family Exam Limitations: No limitations - Medical/Surgical History Hx Asthma: No Hx Chronic Respiratory Disease: No Hx Diabetes: Yes Hx Cardiac Disease: Yes Hx Renal Disease: No Hx Cirrhosis: No Hx Alcoholism: No Hx HIV/AIDS: No Hx Splenectomy or Spleen Trauma: No Other PMH: back surgery 2006 and 2008, pacemaker 2006 afib,sss, niddm,stent 2005 and 2015, CAD, Diabetes, CHF, HTN, hypothyroidism - Family History Significant Family History: Heart disease - Social History Smoking Status: Never smoked Alcohol Use: None Constitutional: Initial Vital Signs Temperature (C) 37.0 C 08/08/18 16:20 Heart Rate 117 H 08/08/18 16:20 Respiratory Rate 20 08/08/18 16:20 Blood Pressure 125/84 H 08/08/18 16:20 O2 Sat (%) 95 08/08/18 16:20 O2 Delivery Mode Room Air O2 (L/minute) 2 Allergies/Adverse Reactions: ofloxacin Allergy (Unknown, Verified 01/07/18 15:42) Rash Home Medications: Medication Instructions Recorded Digoxin [Lanoxin 0.125 mg] 0.125 mg PO DAILY@06/18/12 Herbals/Supplements -Info Only 1 each PO 05/20/13 [place]-3 Fatty Acids [Fish Oil 1000 1,000 mg PO DAILY@05/20/13 mg (*)] Levothyroxine [Synthroid 100 mcg 100 mcg PO DAILY07/14/15 (*)] Lisinopril [Zestril 5 mg (*)] 5 mg PO DAILY@07/14/15 Insulin Glargine [Lantus 100 30 units SC HS 10/19/15 UNITS/ML] glipiZIDE XL [Glucotrol XL 10 MG 20 mg PO DAILY@10/19/15 (*)] Torsemide [Demadex] 5 mg PO TUSA@07/16/17 Oxymetazoline HCl [Afrin Nasal 2 sprays EACHNARE HS 07/23/17 [place]] Carvedilol Phosphate [Coreg Cr] 40 mg PO DAILY@04/11/18 Magnesium Hydroxide [Milk of 30 ml PO Q6H PRN 04/11/18 Magnesia] Spironolactone [Aldactone 25 MG 25 mg PO Q2D@04/11/18 (*)] Medical Decision Making - Diagnostics EKG Interpretation: An EKG obtained and was read and documented in trace view. Please see trace view for full reading and report. Ventricular paced rhythm 117. No acute ischemic changes, Imaging Results: Imaging Impressions Chest X-Ray 08/08/18 16:57 Impression: Stable cardiac silhouette enlargement, with no focal infiltrate or congestive heart failure. Imaging: Discussed imaging studies w/ call worker person Radiologist ED Course/Re-evaluation: Patient's potassium is elevated. Will verify with I-STAT. Will treat with insulin glucose and Lasix. This is possibly responsible for her V paced rhythm at 120. Will admit for further treatment to the ICU as well as Cardiology consultation. 6:10 p.m. Discussed the case with Dr. Mcintyre who agrees with potassium lowering measures. Her still waiting on repeat I-STAT. Spoke with Dr. Duran who recommends amiodarone drip as well as nitroglycerin for pain. He does not recommend diltiazem in the setting. Also recommends holding the spironolactone. 6:[address] Duran has called back and now request that we hold amiodarone drip and instead get her pacemaker interrogated 1st. We have called in the [employer] rep. Differential Diagnosis: Partial list of the Differential diagnosis considered include but were not limited to; acute coronary disease, electrolyte abnormality, anxiety, dehydration, CHF and although unlikely based on the history and physical exam, I also considered dissection, PE. Critical Care Time: Critical care time spent by me, Dr. Macedo exclusive with this patient was 35 minutes, exclusive of the PA time exclusive of procedures. The organ system that was at risk was cardiovascular and I gave IV fluids, medications, consultation and admission to prevent worsening of the patient's condition - Data Points Laboratory Results: Laboratory Results 08/08/18 16:37 08/08/18 16:37 08/08/18 08/08/18 08/08/18 18:12 18:10 16:39 WBC RBC Hgb POC Hgb 13.9 gm/dL gm/dL (12.6-16.3) Hct POC Hct 41 % % (38-47) MCV MCH MCHC RDW Plt Count MPV Neut % (Auto) Lymph % (Auto) [place] % (Auto) Eos % (Auto) Baso % (Auto) Nucleat RBC Rel Count Absolute Neuts (auto) Absolute Lymphs (auto) Absolute Monos (auto) Absolute Eos (auto) Absolute Basos (auto) Absolute Nucleated RBC Immature Gran % Immature Gran # PT INR APTT POC Sodium 133 mEq/L L mEq/L (135-145) Sodium POC Potassium 6.5 mEq/L H* mEq/L (3.3-5.0) Potassium POC Chloride 101 mEq/L mEq/L (97-110) Chloride Carbon Dioxide POC Total CO2 21 mEq/L L mEq/L (22-31) Anion Gap POC BUN 27 mg/dL H mg/dL (7-23) BUN Creatinine POC Creatinine 0.9 mg/dL mg/dL (0.6-1.0) Estimated GFR Glucose POC Glucose 214 mg/dL H mg/dL (70-100) Calcium Total Bilirubin Conjugated Bilirubin Unconjugated Bilirubin AST ALT Alkaline Phosphatase POC Troponin I 0.22 ng/mL H ng/mL (0.00-0.08) Total Protein Albumin Lipase Urine Color YELLOW Urine Appearance CLEAR Urine pH 5.0 (5.0-7.5) Ur Specific [place] 1.019 (1.002-1.030) Urine Protein 1+ H (NEGATIVE) Urine Ketones NEGATIVE (NEGATIVE) Urine Blood NEGATIVE (NEGATIVE) Urine Nitrate NEGATIVE (NEGATIVE) Urine Bilirubin NEGATIVE (NEGATIVE) Urine Urobilinogen 4.0 EU H EU (0.2-1.0) Ur Leukocyte Esterase NEGATIVE (NEGATIVE) Urine RBC 1-3 /hpf /hpf (0-3) Urine WBC 3-5 /hpf H /hpf (0-3) Ur Epithelial Cells TRACE /lpf /lpf (NONE-1+) Hyaline Casts 25-50 /lpf H /lpf (0-1) Urine Mucus TRACE /lpf /lpf (NONE-1+) Urine Glucose NEGATIVE (NEGATIVE) 08/08/18 08/08/18 08/08/18 16:37 16:37 16:37 WBC 6.73 10^3/uL 10^3/uL (3.80-9.50) RBC 4.67 10^6/uL 10^6/uL (4.18-5.33) Hgb 13.5 g/dL g/dL (12.6-16.3) POC Hgb Hct 41.5 % % (38.0-47.0) POC Hct MCV 88.9 fL fL (81.5-99.8) MCH 28.9 pg pg (27.9-34.1) MCHC 32.5 g/dL g/dL (32.4-36.7) RDW 15.8 % H % (11.5-15.2) Plt Count 169 10^3/uL 10^3/uL (150-400) MPV 11.1 fL fL (8.7-11.7) Neut % (Auto) 42.7 % % (39.3-74.2) Lymph % (Auto) 42.8 % % (15.0-45.0) [place] % (Auto) 12.5 % % (4.5-13.0) Eos % (Auto) 0.9 % % (0.6-7.6) Baso % (Auto) 0.4 % % (0.3-1.7) Nucleat RBC Rel Count 0.0 % % (0.0-0.2) Absolute Neuts (auto) 2.87 10^3/uL 10^3/uL (1.70-6.50) Absolute Lymphs (auto) 2.88 10^3/uL 10^3/uL (1.00-3.00) Absolute Monos (auto) 0.84 10^3/uL H 10^3/uL (0.30-0.80) Absolute Eos (auto) 0.06 10^3/uL 10^3/uL (0.03-0.40) Absolute Basos (auto) 0.03 10^3/uL 10^3/uL (0.02-0.10) Absolute Nucleated RBC 0.00 10^3/uL 10^3/uL (0-0.01) Immature Gran % 0.7 % % (0.0-1.1) Immature Gran # 0.05 10^3/uL 10^3/uL (0.00-0.10) PT 13.9 SEC SEC (12.0-15.0) INR 1.11 (0.83-1.16) APTT 28.1 SEC SEC (23.0-38.0) POC Sodium Sodium 131 mEq/L L mEq/L (135-145) POC Potassium Potassium 6.6 mEq/L H* mEq/L (3.5-5.2) POC Chloride Chloride 95 mEq/L L mEq/L (97-110) Carbon Dioxide 25 mEq/l mEq/l (22-31) POC Total CO2 Anion Gap 11 mEq/L mEq/L (6-14) POC BUN BUN 26 mg/dL H mg/dL (7-23) Creatinine 1.0 mg/dL mg/dL (0.6-1.0) POC Creatinine Estimated GFR 53 Glucose 249 mg/dL H mg/dL (70-100) POC Glucose Calcium 10.0 mg/dL mg/dL (8.5-10.4) Total Bilirubin 2.0 mg/dL H mg/dL (0.1-1.4) Conjugated Bilirubin 0.6 mg/dL H mg/dL (0.0-0.5) Unconjugated Bilirubin 1.4 mg/dL H mg/dL (0.0-1.1) AST 25 IU/L IU/L (14-46) ALT 29 IU/L IU/L (9-52) Alkaline Phosphatase 80 IU/L IU/L (38-126) POC Troponin I Total Protein 7.7 g/dL g/dL (6.3-8.2) Albumin 5.0 g/dL g/dL (3.5-5.0) Lipase 282 IU/L IU/L (23-300) Urine Color Urine Appearance Urine pH Ur Specific [place] Urine Protein Urine Ketones Urine Blood Urine Nitrate Urine Bilirubin Urine Urobilinogen Ur Leukocyte Esterase Urine RBC Urine WBC Ur Epithelial Cells Hyaline Casts Urine Mucus Urine Glucose Medications Given: Discontinued Medications Dextrose (Dextrose 50% Syringe) 25 gm IVP EDNOW ONE Stop: 08/08/18 17:43 Last Admin: 08/08/18 18:17 Dose: 25 gm Diltiazem HCl (Cardizem 25 Mg/5 Ml Vial) 10 mg IVP EDNOW ONE Stop: 08/08/18 18:00 Last Admin: 08/08/18 18:05 Dose: Not Given Enoxaparin Sodium (Lovenox) 60 mg SC EDNOW ONE Stop: 08/08/18 18:09 Last Admin: 08/08/18 18:59 Dose: 60 mg Furosemide (Lasix Injection) 20 mg IVP EDNOW ONE Stop: 08/08/18 17:43 Last Admin: 08/08/18 18:32 Dose: Not Given Sodium Chloride (Ns) 500 mls @ 0 mls/hr IV EDNOW ONE; Wide Open PRN Reason: Protocol Stop: 08/08/18 16:57 Last Admin: 08/08/18 17:09 Dose: 500 mls Amiodarone HCl (Amiodarone Hcl) 200 mls @ 0 mls/hr IV EDNOW ONE PRN Reason: Per Protocol Stop: 08/08/18 18:09 Last Admin: 08/08/18 19:35 Dose: Not Given Insulin Human Regular (Humulin R) 10 unit IVP EDNOW ONE Stop: 08/08/18 17:43 Last Admin: 08/08/18 18:19 Dose: 10 units Miscellaneous Medication (Lokelma) 10 gm PO EDNOW ONE Stop: 08/08/18 17:59 Last Admin: 08/08/18 18:32 Dose: 10 gm Oxymetazoline HCl (Afrin Nasal [place]) 2 sprays EACHNARE HS [facility] Stop: 02/04/19 20:59 Last Admin: 08/08/18 20:24 Dose: Not Given Point of Care Test Results: Chemistry 08/08/18 08/08/18 18:12 16:39 POC Sodium 133 mEq/L L mEq/L (135-145) POC Potassium 6.5 mEq/L H* mEq/L (3.3-5.0) POC Chloride 101 mEq/L mEq/L (97-110) POC Total CO2 21 mEq/L L mEq/L (22-31) POC BUN 27 mg/dL H mg/dL (7-23) POC Creatinine 0.9 mg/dL mg/dL (0.6-1.0) POC Glucose 214 mg/dL H mg/dL (70-100) POC Troponin I 0.22 ng/mL H ng/mL (0.00-0.08) ISTAT H&H 08/08/18 18:12 POC Hgb 13.9 gm/dL gm/dL (12.6-16.3) POC Hct 41 % % (38-47) Departure - Departure Disposition: [facility] Inpatient Acute Clinical Impression: Hyperkalemia Chest pain Qualifiers: Chest pain type: unspecified Qualified Code(s): R07.9 - Chest pain, unspecified Atrial fibrillation Qualifiers: Atrial fibrillation type: unspecified Qualified Code(s): I48.91 - Unspecified atrial fibrillation Condition: Critical
[2018-08-08 17:29] LABS: INR 1.11 (0.83-1.16); PROTIME(PATIENT) 13.9 SEC (12.0-15.0)
[2018-08-08] MEDS ORDERED: FUROSEMIDE 40 MG/4 ML VIAL IVP ONE (17:42)
[2018-08-08] MEDS ORDERED: INSULIN REGULAR HUMAN 100 UNIT/ML UNIT IVP ONE (17:42)
[2018-08-08] MEDS ORDERED: D50W 25 GM/50 ML SYR IVP ONE (17:42)
[2018-08-08] MEDS ORDERED: SODIUM ZIRCONIUM CYCLOSILICATE 10 GM PACKET PO ONE (17:58)
[2018-08-08] MEDS ORDERED: DILTIAZEM 25 MG/5 ML VIAL IVP ONE (17:59)
[2018-08-08] MEDS ORDERED: NITROGLYCERIN 0.4 MG BTL SL PRN (18:07)
[2018-08-08] MEDS ORDERED: ENOXAPARIN 60 MG/0.6 ML SYR SC ONE (18:08)
[2018-08-08] MEDS ORDERED: AMIODARONE HCL 200 ML IV ONE (18:08)
[2018-08-08 18:57] LABS: PLATELET COUNT 169 10^3/uL (150-400)
--- NOTE | 2018-08-08 19:00 | PDGENHP ---
History and Physical History and Physical: CC: Palpitations chest discomfort short of breath HISTORY: This patient with chronic heart disease, multifactorial, comes in with 2 weeks of intermittent and progressive symptoms, mostly fatigue and mild dyspnea but also some mild vague ache in the chest as well as some rapid palpitations. She comes into the ER today for this reason. Notably she had similar symptoms about 6 weeks ago and she had 2 visits in the Cardiology Clinic back in June at which time she was diagnosed with tachycardia with heart rate around 120 which she describes was caused by atrial fibrillation with her pacemaker inappropriately pacing at that rate. She said she had some adjustments made on 2 occasions to the pacemaker and did much better afterward. The symptoms then recurred as described above. Notably here in the ER she is in a tachycardic state with her pacemaker giving her ventricular complexes at 120 beats per minute. She denies cough, upper respiratory symptoms, or fever and has no pleuritic symptoms. She has not noticed swelling in her legs or orthopnea. No nausea or vomiting. 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 Coronary disease with stents in 2006 and 2016 Sick sinus syndrome with pacer Syncope Chronic hypoxemic respiratory failure on home oxygen Primary Pulmonary hypertension, there is a history of PE in 2016 that appeared subacute chronic in this is suspected to be causative Pulmonary emboli, with PE on prior imaging studies Hypertension Diabetes Diverticulitis Hearing loss Sigmoidectomy Cholecystectomy Appendectomy FAMILY MEDICAL HISTORY: Heart disease Leukemia Uterine SOCIAL HISTORY: and lives with her in private home Full cor per patient's wishes No history of any tobacco use MEDICATIONS: The patients list has been reconciled by our clinical pharmacist in the EMR. I have reviewed the list and ordered appropriate medicines. 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 There is chronically enlarged heart and evidence of chronic pulmonary hypertension which are unchanged from previous x-rays. Apparent small left pleural effusion seen in 2018 is not seen on today's x-ray. Chest her pacemaker device in place. There is if anything minimal pulmonary edema, no infiltrate. 12 LEAD EKG: Ventricular pacing at 120 beats per minute with underlying supraventricular tachycardia driving it. On my review of the tracing I cannot determine whether a flutter or atrial tachycardia. QRS and ST T waves are V paced with nothing that appears to show acute ischemia ASSESSMENT: * Acute tachycardia of supraventricular origin leading to rapid ventricular pacing in this V pacer dependent patient -hx of recurrent atrial tachycardia so presumably same now, could not rule out flutter by jane's EKG -had very similar symptoms and arrhythmia last month w/ interrogation showing atrial tach -currently pacemaker is inappropriately pacing ventricles at approximately 120 which is likely the cause of her acute symptoms now as it was then -* also of note the patient has been using Afrin spray nightly for some years and this may be contributing to her tachycardia * Hyperkalemia 6.6; may also be causative for current arrhythmia -takes Aldactone and lisinopril at home, waiting to have her current doses reconciled but it sounds like her meds may have been adjusted by Dr. Bonner recently * Symptoms of dyspnea and chest discomfort and palpitations due to above; however no acute CHF * Minimal elevation of troponin is likely caused by the tachycardia, suspicion for acute coronary syndrome currently low but recheck troponin is warranted * Toxic digoxin level at 2 (may actually be higher as Aldactone can interfere with the test results making it look lower) * Rhinitis medicamentosa with nightly Afrin use * History of coronary disease, presumably stable but need to trend troponin and follow her symptoms * History of cardiomyopathy and systolic heart failure, does not appear in acute exacerbation now which is remarkable for her presenting illness * Chronic hypoxic respiratory failure on oxygen at home, and pulmonary hypertension * History of PE, high DVT PE risk here * Diabetes on insulin and oral medicine at home -a bit hyperglycemic as she entered the ER; did get some glucose and insulin for high potassium in the ER PLANS: * Inpatient admission * Have her pacemaker interrogated; plans for management of arrhythmia will depend on confirming that this is atrial tachycardia or A flutter * Correction of her potassium has started with glucose and insulin given in the ER as well as a dose of sodium zirconium 10 mg; will need to repeat that blood sample this evening and follow closely, likely further treatment needed * Follow rate control and rhythm with correction of potassium; if remains tachycardic could consider giving extra beta-larry or calcium larry, or if pacemaker interrogation shows fib or flutter could consider amiodarone. If she has persisting issues with tachycardia question if further reprogramming pacer is possible, or if there is the possibility of an ablation procedure * Hold digoxin because of high-level, recheck in morning; review this med and dosing with Cardiology * Hold Aldactone and lisinopril for now due to high potassium; review use and dosing of these medicines with Cardiology tomorrow * Low potassium diet at this time * Will place on anticoagulant dose Lovenox until we have pacemaker interrogation that tells us that she has atrial tach or atrial flutter; if atrial tach would keep on low-dose Lovenox here as she has history of PE and pulmonary hypertension * Follow sugars and treat accordingly, currently have ordered home meds at usual doses * Cardiology has been consulted, Dr. Duran saw the patient in the ER Had a very long discussion at the bedside tonight with the patient, her , and 2 of their children. We reviewed in detail of the identified issues and all of the treatment plans. I have reviewed the patient's case in detail with Dr. Vinny Duran and Joe Macedo I have reviewed the patient's past medical records as part of this assessment, including prior hospital admission records and outpatient clinic records including recent cardiology clinic records
[2018-08-08] MEDS ORDERED: ZOLPIDEM TARTRATE 5 MG TAB PO PRN (19:55)
[2018-08-08] MEDS ORDERED: OXYMETAZOLINE 30 ML NASAL SPRAY EACHNARE SCH (21:00)
[2018-08-08] MEDS: INSULIN GLARGINE 100 UNITS/ML UNIT SC SCH (21:53)
[2018-08-08] MEDS: FLUTICASONE NASAL 120 SPRAYS/16 GM MDI EACHNARE SCH (22:00)
[2018-08-09] MEDS: MELATONIN 3 MG TAB PO SCH (02:58)
[2018-08-09] MEDS: LEVOTHYROXINE 100 MCG TAB PO SCH (07:13)
[2018-08-09] MEDS: ENOXAPARIN 60 MG/0.6 ML SYR SC SCH ×2 (07:13→18:33)
[2018-08-09] MEDS ORDERED: DIGOXIN 125 MCG TAB PO SCH (08:00)
[2018-08-09] MEDS: OMEGA-3 FATTY ACIDS 1,000 MG CAP PO SCH (08:32)
--- NOTE | 2018-08-09 09:45 | PDMN ---
Medical Necessity Medical necessity: MCG M510 Supraventricular Arrhythmias, A-1 day: 83 yo w/ fatigue, dyspnea, chest 'ache' and rapid palpitations. Eval reveals acute tachycardia of supraventricular origin leading to rapid ventricular pacing in this V pacer dependent patient w/ hyperkalemia K+6.6, mild troponin elevation and toxic digoxin level 2. Anticipate>2MN for pacer interrogation, K correction , tele monitoring, cardiology consult. Hx recurrent atrial tachy, cardiomyopathy, pacer, CAD w/ stents, SSS, syncope, chronic hypoxemic resp fx on home O2, pulm HTN, PE, HTN, DM, diverticulitis
[2018-08-09] MEDS: AMIODARONE 360 MG/200 ML IV SCH ×3 (10:12→21:13)
--- NOTE | 2018-08-09 10:30 | PDCARCONS ---
Cardiology Consult Reason for Consult: NSTEMI. Atrial tachycardia. This is a late dictation, patient was seen at 7:38 p.m. On 08/08/2018he he the he he he the Chief Complaint: Palpitations. Chest discomfort Requesting Physician: Emergency department physician, also Dr. Bryce Mcintyre History of Present Illness: 83-year-old female who was seen in the emergency department upon arrival along with her and daughter. Dr. Claude Mcintyre was in the room at the time of my interview with the patient. She reports palpitations and heaviness in her chest. On arrival her troponin was elevated and therefore I was asked to see the patient by emergency department physician. She reports that with better control of her heart rate her chest discomfort has improved. She denies syncope. History Information - Allergies/Home Medication List Allergies/Adverse Reactions: ofloxacin Allergy (Unknown, Verified 01/07/18 15:42) Rash Home Medications: Digoxin [Lanoxin 0.125 mg] 0.125 mg PO DAILY@06/18/12 [Last Taken 08/08/18] Herbals/Supplements -Info Only 1 each PO 05/20/13 [Last Taken 08/08/18] [place]-3 Fatty Acids [Fish Oil 1000 mg (*)] 1,000 mg PO DAILY@05/20/13 [Last Taken 08/08/18] Levothyroxine [Synthroid 100 mcg (*)] 100 mcg PO DAILY07/14/15 [Last Taken ] Lisinopril [Zestril 5 mg (*)] 5 mg PO DAILY@07/14/15 [Last Taken 08/07/18] Insulin Glargine [Lantus 100 UNITS/ML] 30 units SC 10/19/15 [Last Taken 08/07] glipiZIDE XL [Glucotrol XL 10 MG (*)] 20 mg PO DAILY@10/19/15 [Last Taken ] Torsemide [Demadex] 5 mg PO TUSA@07/16/17 [Last Taken 08/08/18] Oxymetazoline HCl [Afrin Nasal [place]] 2 sprays EACH[place]ARE 07/23/17 [Last Taken 08/07/18] Carvedilol Phosphate [Coreg Cr] 40 mg PO DAILY@04/11/18 [Last Taken 08/07/18] Magnesium Hydroxide [Milk of Magnesia] 30 ml PO Q6H PRN 04/11/18 [Last Taken 21:00] Spironolactone [Aldactone 25 MG (*)] 25 mg PO Q2D@09 04/11/18 [Last Taken ] Past Medical History: - Social History Smoking Status: Never smoked Alcohol Use: None Physical Exam Physical Exam: Temp Pulse Resp BP Pulse Ox 36.1 C 91 19 105/55 L 96 08/09/18 08:00 08/09/18 08:00 08/09/18 08:00 08/09/18 08:00 08/09/18 08:00 O2 (L/minute) 2 Constitutional: no apparent distress, appears nourished, not in pain Eyes: PERRL, EOMI Ears, Nose, Mouth, Throat: moist mucous membranes, hearing normal Cardiovascular: systolic murmur, irregularly irregular Respiratory: no respiratory distress Gastrointestinal: normoactive bowel sounds, soft, non-tender abdomen Skin: warm Neurologic: AAOx3 Psychiatric: interacting appropriately, not anxious, not encephalopathic, thought process linear Lab and Imaging 08/08/18 16:37 08/09/18 04:30 WBC 6.73 10^3/uL (3.80-9.50) 08/08/18 16:37 RBC 4.67 10^6/uL (4.18-5.33) 08/08/18 16:37 Hgb 13.5 g/dL (12.6-16.3) 08/08/18 16:37 POC Hgb 13.3 gm/dL (12.6-16.3) 08/08/18 19:19 Hct 41.5 % (38.0-47.0) 08/08/18 16:37 POC Hct 39 % (38-47) 08/08/18:19 MCV 88.9 fL (81.5-99.8) 08/08/18 16:37 MCH 28.9 pg (27.9-34.1) 08/08/18 16:37 MCHC 32.5 g/dL (32.4-36.7) 08/08/18 16:37 RDW 15.8 % (11.5-15.2) H 08/08/18 16:37 Plt Count 169 10^3/uL (150-400) 08/08/18 16:37 MPV 11.1 fL (8.7-11.7) 08/08/18 16:37 Neut % (Auto) 42.7 % (39.3-74.2) 08/08/18 16:37 Lymph % (Auto) 42.8 % (15.0-45.0) 08/08/18 16:37 [place] % (Auto) 12.5 % (4.5-13.0) 08/08/18 16:37 Eos % (Auto) 0.9 % (0.6-7.6) 08/08/18 16:37 Baso % (Auto) 0.4 % (0.3-1.7) 08/08/18 16:37 Nucleat RBC Rel Count 0.0 % (0.0-0.2) 08/08/18 16:37 Absolute Neuts (auto) 2.87 10^3/uL (1.70-6.50) 08/08/18 16:37 Absolute Lymphs (auto) 2.88 10^3/uL (1.00-3.00) 08/08/18 16:37 Absolute Monos (auto) 0.84 10^3/uL (0.30-0.80) H 08/08/18 16:37 Absolute Eos (auto) 0.06 10^3/uL (0.03-0.40) 08/08/18 16:37 Absolute Basos (auto) 0.03 10^3/uL (0.02-0.10) 08/08/18 16:37 Absolute Nucleated RBC 0.00 10^3/uL (0-0.01) 08/08/18 16:37 Immature Gran % 0.7 % (0.0-1.1) 08/08/18 16:37 Immature Gran # 0.05 10^3/uL (0.00-0.10) 08/08/18 16:37 PT 13.9 SEC (12.0-15.0) 08/08/18 16:37 INR 1.11 (0.83-1.16) 08/08/18 16:37 APTT 28.1 SEC (23.0-38.0) 08/08/18 16:37 POC Sodium 135 mEq/L (135-145) 08/08/18 19:19 Sodium 134 mEq/L (135-145) L 08/09/18 04:30 POC Potassium 5.7 mEq/L (3.3-5.0) H 08/08/18 19:19 Potassium 5.1 mEq/L (3.5-5.2) 08/09/18 04:30 POC Chloride 96 mEq/L (97-110) L 08/08/18 19:19 Chloride 103 mEq/L (97-110) 08/09/18 04:30 Carbon Dioxide 25 mEq/l (22-31) 08/09/18 04:30 POC Total CO2 24 mEq/L (22-31) 08/08/18 19:19 Anion Gap 6 mEq/L (6-14) 08/09/18 04:30 POC BUN 25 mg/dL (7-23) H 08/08/18 19:19 BUN 24 mg/dL (7-23) H 08/09/18 04:30 Creatinine 0.9 mg/dL (0.6-1.0) 08/09/18 04:30 POC Creatinine 1.0 mg/dL (0.6-1.0) 08/08/18 19:19 Estimated GFR 60 08/09/18 04:30 Glucose 54 mg/dL (70-100) L 08/09/18 04:30 POC Glucose 185 mg/dL (70-100) H 08/09/18 08:22 Calcium 9.3 mg/dL (8.5-10.4) 08/09/18 04:30 Total Bilirubin 2.0 mg/dL (0.1-1.4) H 08/08/18 16:37 Conjugated Bilirubin 0.6 mg/dL (0.0-0.5) H 08/08/18 16:37 Unconjugated Bilirubin 1.4 mg/dL (0.0-1.1) H 08/08/18 16:37 AST 25 IU/L (14-46) 08/08/18 16:37 ALT 29 IU/L (9-52) 08/08/18 16:37 Alkaline Phosphatase 80 IU/L (38-126) 08/08/18 16:37 POC Troponin I 0.22 ng/mL (0.00-0.08) H 08/08/18 16:39 Total Protein 7.7 g/dL (6.3-8.2) 08/08/18 16:37 Albumin 5.0 g/dL (3.5-5.0) 08/08/18 16:37 Lipase 282 IU/L (23-300) 08/08/18 16:37 Urine Color YELLOW 08/08/18 18:10 Urine Appearance CLEAR 08/08/18 18:10 Urine pH 5.0 (5.0-7.5) 08/08/18 18:10 Ur Specific [place] 1.019 (1.002-1.030) 08/08/18 18:10 Urine Protein 1+ (NEGATIVE) H 08/08/18 18:10 Urine Ketones NEGATIVE (NEGATIVE) 08/08/18 18:10 Urine Blood NEGATIVE (NEGATIVE) 08/08/18 18:10 Urine Nitrate NEGATIVE (NEGATIVE) 08/08/18 18:10 Urine Bilirubin NEGATIVE (NEGATIVE) 08/08/18 18:10 Urine Urobilinogen 4.0 EU (0.2-1.0) H 08/08/18 18:10 Ur Leukocyte Esterase NEGATIVE (NEGATIVE) 08/08/18 18:10 Urine RBC 1-3 /hpf (0-3) 08/08/18 18:10 Urine WBC 3-5 /hpf (0-3) H 08/08/18 18:10 Ur Epithelial Cells TRACE /lpf (NONE-1+) 08/08/18 18:10 Hyaline Casts 25-50 /lpf (0-1) H 08/08/18 18:10 Urine Mucus TRACE /lpf (NONE-1+) 08/08/18 18:10 Urine Glucose NEGATIVE (NEGATIVE) 08/08/18 18:10 Digoxin 2.0 ng/mL (0.8-2.0) 08/09/18 04:30 Visualized and Interpreted EKG results: Yes EKG additional interpertation: Atrial tachycardia with one-to-one conduction to ventricles Telemetry: Atrial tachycardia with variable conduction Echocardiogram: Pending A/P Assessment: 1. Acute coronary syndrome with positive troponin, likely demand ischemia 2. Known coronary artery disease with PCI in 2005 and 2016 3. Combined ischemic and nonischemic cardiomyopathy - likely contributed by right ventricular pacing 4. Dual-chamber pacemaker with RV pacing dependence 5. Hyperkalemia Plan: Cardiomyopathy is multifactorial including ischemic and nonischemic (RV pacing plus tachycardia mediated) I have made the following programming changes to her pacemaker to avoid high ventricular rates: 1. Max sensor rate 95 bpm, URL 100 bpm 2. Mode switch rate 110 bpm (AT at 120 bpm) We will assess LV ejection fraction once rates are better controlled with the above programming. She should be on long-term anticoagulation, currently she is on Lovenox To maintain AV synchrony in a patient with cardiomyopathy, will start her on IV amiodarone for the next 24 hr and switch her to p. O. Amiodarone. Side effects of amiodarone including liver and lung side effects were discussed with her. If LV ejection fraction does not improve, consider upgrade to biventricular pacing. Will hold off on coronary angiography for now given presentation with hyperkalemia which was likely drug-induced + likely demand ischemia. Will also hold off on ARB and Aldactone for now. Will discuss tomorrow with patient's education program manager Dr. Sam Jaeger and Dr. Yao Bonner.
--- NOTE | 2018-08-09 13:23 | ECHO ---
[email or web address] [address] [address] Main: [phone] Echocardiography Examination Transthoracic Name: URSZULA WASSERMAN MR#: [id number] Study Date: 08/09/2018 Study Time: 11:31 AM Date of : 1935 Age: 83 year(s) Height: 157.5 cm (62 in.) Weight: 59.87 kg (132 lb.) BSA: 1.6 m2 Gender: Female Examination: Echo Contrast: Image Quality: Good Rhythm: Pacemaker rhythm Heart Rate: 60 bpm BP: 110 mmHg/61 mmHg Indication: Nstemi, A-Tach Procedure Staff Referring Physician: Pilling Machine Operator: Dayday Ornelas RDCS Reading Physician: Shelton Obrien MD Requesting Provider: Ordering Physician: Vinny Duran MD Indication: Nstemi, A-Tach Measurements Chambers AV/MV Label Value Normal Value Label Value Normal Value EF lower range (%) 35 % AR Defect Area (ERO) 0.23 cm2 EF upper range (%) 40 % AR PHT 0.68 s IVSd, 2D 0.9 cm (0.6cm - 1.1cm) AR PHT 677 ms IVSd, MM 1.2 cm (0.6cm - 0.9cm) AR PISA Radius 0.6 cm LVDd, 2D 5.7 cm (3.9cm - 5.3cm) AR Reg. Fraction 153 % LVDd, MM 5.2 cm (3.9cm - 5.3cm) AR Reg. Volume 52 ml LVDs, 2D 4.6 cm (2.1cm - 4cm) AR Vena contracta 0.4 cm LVDs, MM 4.2 cm (2cm - 3.8cm) AR Vmax 3.79 m/s LVEF visual 35 % AR VTI 226 cm LVEF, 2D 39 % (54% - 74%) AV PGmax 29 mmHg LVEF, BP 33 % (55% - 70%) AV PGmean 14 mmHg LVEF, MM 38 % (55% - 70%) AV Vmax 2.7 m/s LVEF, MOD2 40 % (55% - 70%) HUONG (continuity eq. 0.6 cm2 LVEF, MOD4 30 % (55% - 70%) Vmax) LVOT PGmax 1 mmHg HUONG D (continuity eq. 0.6 cm2 LVOT PGmean 1 mmHg VTI) LVOT Vmax 0.6 m/s (0.7m/s - 1.1m/s) MR Vmax 3.98 m/s LVOT Vmean 0.37 m/s MR VTI 145 cm LVOTd 1.9 cm (1.8cm - 2cm) MV A Vmax 0.55 m/s MV E' lateral 0.03 m/s Patient: URSZULA WASSERMAN Study Date: 08/09/2018 Page 1 3 11:31 AM LVPWd, 2D 0.8 cm MV E' mean 0.02 m/s LVPWd, MM 1.3 cm (0.6cm - 0.9cm) MV E' septal 0.02 m/s RVDd, 2D 3.6 cm (1.9cm - 3.8cm) MV E Vmax 1.16 m/s TAPSE 2.2 cm MV E/A 2.11 LA Volume, A4C 78 ml (22ml - 52ml) MV E/E' lateral 35 LAD Index, 2D 2.19 cm/m2 MV E/E' mean 46.4 LADs, 2D 3.5 cm (2.7cm - 3.8cm) MV E/E' septal 51.8 (0.45 - 1.25) LAESV index, MOD4 48.8 ml/m2 MV PGmax 7 mmHg RA Area 26.8 cm2 MV PGmean 2 mmHg Additional Vessels MV VTI 36 cm Label Value Normal Value MVA D (continuity eq.) 0.9 cm2 AoAsc 2.3 cm TV/PV AoRoot, MM 2.9 cm (2.2cm - 3.7cm) Label Value Normal Value RA Pressure 5 mmHg RVSP 52 mmHg TR Pmax 47 mmHg TR Vmax 3.44 m/s HI End myrick Tone 1.38 cm/s PV PGmax 3 mmHg PV Vmax, Caliper 0.9 m/s (0.6m/s - 0.9m/s) Conclusions Left Ventricle: The LV is severly dilated. There is moderate global hypokinesis.. The EF is visually estimated to be 35 %. Right Ventricle: Normal size right ventricle. There is a pacemaker lead noted in the right ventricle. Left Atrium: The left atrium is severely dilated. Right Atrium Measurements RA Area is 26.8 cm2. Mitral Valve: There is mild mitral thickening. Aortic Valve: Moderate aortic regurgitation is present. There is mild to moderate aortic stenosis. Aortic Valve Measurements AV Vmax is 2.70 m/s. Tricuspid Valve: Moderate to severe tricuspid regurgitation. Right Ventricular systolic pressure is measured at 52 mmHg. Overall Conclusions: Compared to echo of 05/2014, today's echo is unchanged. Patient: URSZULA WASSERMAN Study Date: 08/09/2018 Page 2 of 3 11:31 AM Findings Left Ventricle: The LV is severly dilated. There is moderate global hypokinesis.. Moderately to markedly reduced systolic left ventricular function. The EF is visually estimated to be 35 %. EF range is estimated at 35 % - 40 %. Left ventricle wall thickness is normal. Grade III Diastolic Dysfunction. Right Ventricle: Normal size right ventricle. The RV function appears grossly normal. There is a pacemaker lead noted in the right ventricle. Left Atrium: The left atrium is severely dilated. Left Atrium Measurements LA Volume, A4C is 78 ml. LAESV index, MOD4 is 48.8 ml/m2. Right Atrium Measurements RA Area is 26.8 cm2. Mitral Valve: Mild mitral regurgitation. No mitral valve stenosis. There is moderate to marked mitral calcification. There is mild mitral thickening. Mitral Valve Measurements MV PGmean is 2 mmHg. Aortic Valve: The aortic valve stenosis is most likely underestimated due to decreased LV function.. Moderate aortic regurgitation is present. There is mild to moderate aortic stenosis. Aortic leaflets exhibit moderate calcification. The aortic valve is trileaflet. There is aortic sclerosis present. Aortic Valve Measurements AV Vmax is 2.70 m/s. AV PGmean is 14 mmHg. AR PHT is 677 ms. Tricuspid Valve: Moderate to severe tricuspid regurgitation. Right Ventricular systolic pressure is measured at 52 mmHg. Pulmonary artery pressure moderately increased. Pulmonic Valve: Moderate pulmonic valve regurgitation is present. Aorta: The aorta is normal. The aortic root size in M-mode measures 2.9 cm. The ascending aorta measures 2.3 cm. Aorta Measurements AoRoot, MM is 2.9 cm. Pericardium: No pericardial effusion. Exam Details Procedure Ordered: Echo Procedure Status: Routine study Image Quality: Good Facility Location: Cardiac Echo 1 (No Signature Object) Patient: URSZULA WASSERMAN Study Date: 08/09/2018 Page 3 of 3 11:31 AM [id number]
--- NOTE | 2018-08-09 16:16 | ASMTCMCOM ---
CM Note CM Note Notes: Pt care discussed in rounds and chart reviewed for discharge planning. Pt is an 83 yo F presents with Hyperkalemia, chest pain, and tachycardia. Pt has a pacemaker. Cardiology is consulted. Discharge needs TBD. Pt's daughter is supportive and in rounds today. pt lives with her . CM to follow. Plan: TBD Date Signed: 08/09/2018 04:15 PM Electronically Signed By:MAURY Rivera
--- NOTE | 2018-08-09 16:48 | HOSPPROG ---
Hospitalist Progress Note Assessment/Plan: * Atrial tachycardia, with rapid pacing of ventricles due to PCM -PCM reprogrammed by Dr. Duran -IV amiodarone * Hyperkalemia -improved - holding Aldactone and lisinopril * Troponin elevation due to demand ischemia * CAD/stent * Digoxin toxicity -holding digoxin - recheck level in am * Rhinitis medicamentosa -DC Afrin * Chronic systolic CHF - EF 35% -ischemic/non-ischemia and worsened by RV pacing -consider upgrade to BiV PCM * Chronic respiratory failure - home O2 * 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 Duran needs rat exterminator anticoag for atrial arrhythmia * DM -Lantus Subjective: Feeling much better Objective: Vital Signs Temp Pulse Resp BP Pulse Ox 37 C 60 22 H 106/59 L 96 08/09/18 16:00 08/09/18 16:00 08/09/18 16:00 08/09/18 16:00 08/09/18 16:00 Laboratory Results 08/09/18 04:30 08/08/18 08/09/18 08/10/18 05:59 05:59 05:59 Intake Total 300 Output Total 200 250 Balance 100 -250 PT 13.9 SEC (12.0-15.0) 08/08/18 16:37 INR 1.11 (0.83-1.16) 08/08/18 16:37 CXR negative EKG viewed, my personal interpretation is - wide complex rapid paced rhythm - Physical Exam Constitutional: no apparent distress, appears nourished, not in pain Cardiovascular: regular rate and rhythym, no murmur, rub, or gallop Respiratory: no respiratory distress, no rales or rhonchi, clear to auscultation Gastrointestinal: normoactive bowel sounds, soft, non-tender abdomen, no palpable masses Skin: no rashes or abrasions, no fluctuance, no induration Neurologic: AAOx3, sensation intact bilaterally Psychiatric: interacting appropriately, not anxious, not encephalopathic, thought process linear ICD10 Worksheet Patient Problems: Problems Problem Status Onset Abdominal pain Acute Urinary tract infection Acute Chest pain Acute Hyperkalemia Acute Atrial fibrillation Acute Pulmonary hypertension Acute CAD (coronary artery disease) Acute Sick sinus syndrome Acute Diabetes mellitus type 2 in obese Acute Pneumonia Acute Elevated troponin Acute Pulmonary embolism Acute
[2018-08-09] MEDS: CARVEDILOL CR 40 MG CAP PO SCH (17:23)
[2018-08-09] MEDS: INSULIN REGULAR HUMAN 100 UNIT/ML UNIT SC SCH ×2 (17:52→21:13)
[2018-08-09] MEDS: ACETAMINOPHEN 325 MG TAB PO PRN (20:43)
[2018-08-09] MEDS: INSULIN GLARGINE 100 UNITS/ML UNIT SC SCH (21:13)
[2018-08-10] MEDS: FLUTICASONE NASAL 120 SPRAYS/16 GM MDI EACHNARE SCH ×2 (02:16→20:26)
[2018-08-10] MEDS: MELATONIN 3 MG TAB PO SCH ×2 (02:16→21:00)
[2018-08-10] MEDS: AMIODARONE 360 MG/200 ML IV SCH ×2 (02:47→08:11)
[2018-08-10] MEDS: LEVOTHYROXINE 100 MCG TAB PO SCH (05:06)
[2018-08-10] MEDS: OMEGA-3 FATTY ACIDS 1,000 MG CAP PO SCH (08:10)
[2018-08-10] MEDS: ASPIRIN EC 81 MG TAB PO SCH (08:10)
[2018-08-10] MEDS: ENOXAPARIN 60 MG/0.6 ML SYR SC SCH ×2 (08:10→18:15)
[2018-08-10] MEDS: INSULIN REGULAR HUMAN 100 UNIT/ML UNIT SC SCH (08:11)
--- NOTE | 2018-08-10 09:20 | HOSPPROG ---
Hospitalist Progress Note Assessment/Plan: * Atrial tachycardia, with rapid pacing of ventricles due to PCM -PCM reprogrammed by Dr. Duran -change IV Amio to po per cards * Hyperkalemia -improved - holding Aldactone and lisinopril * Hyponatremia - Na 128 this am, urine sodium high, suspect SIADH -check am cortisol, TSH slightly elevated -add salt tabs, likely needs solute * Hypothyroidism - increase levothyroxine to 112 mcg / d given elevated TSH * Troponin elevation due to demand ischemia * CAD/stent * Digoxin toxicity -holding digoxin - level 2.6 this am * Rhinitis medicamentosa -DC Afrin * Chronic systolic CHF - EF 35% -ischemic/non-ischemia and worsened by RV pacing -consider upgrade to BiV PCM * Chronic respiratory failure - home O2 * 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 Duran needs terminal operator anticoag for atrial arrhythmia * DM -Lantus, SSI -could probably dc glipizide since insulin dependent * Full code * Dispo - cont inpt Subjective: Pt feels ok. Denies CP or SOB. No palpitations. Taking po well. No complaints. Objective: Vital Signs Temp Pulse Resp BP Pulse Ox 36.6 C 92 22 H 96/66 L 95 08/10/18 08:00 08/10/18 08:00 08/10/18 08:00 08/10/18 08:00 08/10/18 08:00 Laboratory Results 08/10/18 04:50 08/09/18 08/10/18 08/11/18 05:59 05:59 05:59 Intake Total 300 968 Output Total 200 700 Balance 100 268 PT 13.9 SEC (12.0-15.0) 08/08/18 16:37 INR 1.11 (0.83-1.16) 08/08/18 16:37 - Physical Exam Constitutional: no apparent distress Eyes: PERRL Ears, Nose, Mouth, Throat: moist mucous membranes Cardiovascular: regular rate and rhythym Respiratory: no respiratory distress, clear to auscultation Gastrointestinal: normoactive bowel sounds, soft, non-tender abdomen Skin: warm Musculoskeletal: full muscle strength Neurologic: AAOx3 Psychiatric: interacting appropriately ICD10 Worksheet Patient Problems: Problems Problem Status Onset Atrial fibrillation Acute Chest pain Acute Hyperkalemia Acute Abdominal pain Acute CAD (coronary artery disease) Acute Diabetes mellitus type 2 in obese Acute Elevated troponin Acute Pneumonia Acute Pulmonary embolism Acute Pulmonary hypertension Acute Sick sinus syndrome Acute Urinary tract infection Acute
[2018-08-10] MEDS: AMIODARONE HCL 200 MG TAB PO SCH (10:31)
[2018-08-10] MEDS: SODIUM CHLORIDE 1,000 MG TAB PO SCH ×2 (10:32→17:01)
--- NOTE | 2018-08-10 12:23 | SOAPPROG ---
SOAP Progress Note Assessment/Plan: Assessment: CHF consultation performed and dictated. 83 y/o woman with CAD s/p PCIs remotely to LAD and LCX, chronic ischemic systolic CHF with LVEF 35%, PPM with PAT, IDDM and chronic moderate to severe TR with class III-IV NYHA sx. She is having hypotension and serum K+ a little high. Ideally I would like her back on PO Demadex and Aldactone for her biventricular dysfunction and a little nervous about [facility]cfp NACL tabs. Hopefully with the adjustment in her PPM she will have less sustained tachyarrhythmias. REC: 1)no change in current meds. 2)hopefully as serum K+ and NA+ stabilize, will add back low dose Demadex and Aldactone and stop NACL tabs. 3)qam weight and qam BMP 4)check BNP level tomorrow. will follow with you. 08/10/18 12:19 Objective: Vital Signs Temp Pulse Resp BP Pulse Ox 36.6 C 95 21 H 96/65 L 95 08/10/18 08:00 08/10/18 10:00 08/10/18 10:00 08/10/18 10:00 08/10/18 10:00 Laboratory Results 08/10/18 04:50 08/09/18 08/10/18 08/11/18 05:59 05:59 05:59 Intake Total 300 968 361 Output Total 200 700 200 Balance 100 268 161 PT 13.9 SEC (12.0-15.0) 08/08/18 16:37 INR 1.11 (0.83-1.16) 08/08/18 16:37 ICD10 Worksheet Patient Problems: Problems Problem Status Onset Atrial fibrillation Acute Chest pain Acute Hyperkalemia Acute Abdominal pain Acute CAD (coronary artery disease) Acute Diabetes mellitus type 2 in obese Acute Elevated troponin Acute Pneumonia Acute Pulmonary embolism Acute Pulmonary hypertension Acute Sick sinus syndrome Acute Urinary tract infection Acute
[2018-08-10] MEDS: INSULIN LISPRO 100 UNIT/ML SC SCH ×3 (12:39→21:02)
--- NOTE | 2018-08-10 14:05 | PDCONSULT ---
[employer] Note: ASSESSMENT 83-year-old female admitted with decompensated systolic heart failure worsened by atrial fibrillation and right ventricular pacing # acute decompensated systolic heart failure. Current decompensation nonischemic in nature and driven by RV pacing # atrial fibrillation and sick sinus syndrome requiring dual chamber pacer. Reprogrammed by Dr. Duran. Pending clinical course of cardiomyopathy may change to biventricular pacing. Loaded with IV amnio now on oral # hypotension. Improved. Decompensated heart failure, amiodarone bolus as well as outpatient medications. # hypervolemia # hypervolemic hyponatremia. Urine Na high but already received Na # history of pulmonary embolism. On lifelong anticoagulation as outpatient # diabetes type 2 # hypothyroidism PLAN # agree with diuresis # agree with amiodarone # agree with stopping salt tabs # EP management per Dr. Duran # holding digoxin # incresing synthroid # needs lovenox or hep gtt while in patient with possible procedures however needs lifelong systemic anticoagulation for prior PE and atrial fibrillation # restart antihypertensives # insulin basal +bolus # Feeding - cardiac diet # Analgesia APAP # Sedation none # Thromboprophylaxis - lovenox # Head of bed elevated # Ulcer prophylaxis - not indicated # Glucose SSI # Skin no skin breakdown # Delirium - delirium precautions Discussed with Dr Ramirez and Dr Duran's [employer] ABX EVENTS 03/21/18 intubation, bronchoscopy CX Data IMAGING 08/09/2018 TTE-LV severely dilated, moderate global hypokinesis, LVEF 35%, grade 2 diastolic dysfunction, normal RV, left atrium severely dilated, no mitral valve stenosis, mild thickening CC chest heaviness HPI 83 yo F with ICM presented to ED with chest heaviness and palpitations admitted through ED with type 2 NSTEMI due to VT and overdrive pacing. She complained of 1-2 weeks of intermittent chest heaviness, SOB, and fatigue but denied fevers, chills, nausea, vomiting. She evaluated by Dr Duran and placed on amiodarone to help with AV syncrony and also adjusted her pacer. She initially did better but had couple recurrent episodes of tachycardia and hypotension overnight. She feels mildly lightheaded but improved today no new fevers, chills, nausea, vomiting. 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 Please see EMR for details Review of systems A comprehensive 10 point review of systems was obtained is negative except as per HPI Exam Afebrile, heart rate 95, blood pressure 96/65 map 75, respiratory rate 21 95% room air, sinus rhythm GEN: NAD, up in chair, interactive NEURO: A&Ox3, CN 2-12 GI HEENT: PERRL, EOMI, MMM, OP clear NECK: supple, trachea midline CHEST normal shape, no pes excavatum CVS: rrr no m/r/g PULM: CTA B, no wheezes/rales/rhonchi ABD: soft, NT, ND, NABS EXT: Trace to 1+ lower extremity edema, no cyanosis SKIN: warm, dry, intact, no rash PSYCH CAM negative, appropriate affect Labs Reviewed
--- NOTE | 2018-08-10 15:33 | PDCARPN ---
Cardiology Progress Note Chief Complaint: Atrial tachycardia with variable conduction Assessment/Plan: Assessment: 1. Atrial tachycardia: HRs well controlled last NOC, 95-110bpm this AM, on IV Amio overnight 2. Cardiomyopathy: Multifactorial with contributing factors including RV pacing dependance and AT. Reevaluate EF with improved rate/rhythm control and consider upgrade to BiV PPM if LVEF does not improve 3. Hyperkalemia: Lisinopril and aldactone in hold 4. Dig toxicity: Dig held 5. CAD: s/p PCI in 2005 and 2015 Plan: 1. Dr. Bonner to consult today 2. Discontinue IV Amiodarone 3. Start Amiodarone 200mg PO daily 4. Plan to reevaluate LVEF once heart rate/rhythm is better controlled. Consider upgrade to BiV PPM if LVEF does not improve 5. Recommend long-term oral anticoagulation, [id number] score = at least 5 08/10/18 0959 Subjective: Sadie is feeling much better overall, although somewhat tired. No dyspnea, orthopnea, chest discomfort, lightheadedness, dizziness, or pre-syncope Objective: Vital Signs (8 Hrs) Temp Pulse Resp BP Pulse Ox 08/10/18 14:00 78 16 108/58 L 95 08/10/18 12:00 36.4 C 93 21 H 119/73 94 08/10/18 10:08 95 79/52 L 08/10/18 10:00 95 21 H 96/65 L 95 08/10/18 09:47 100 102/64 08/10/18 08:00 36.6 C 92 22 H 96/66 L 95 Intake/Output (24 Hrs) 08/09/18 08/10/18 08/11/18 05:59 05:59 05:59 Intake Total 300 968 361 Output Total 200 700 200 Balance 100 268 161 Intake: Oral (ml) 300 350 240 IV Infused (ml) 618 121 Amiodarone HCl 200 ml @ 618 121 As Directed IV CONT NIEVES Rx#:[id number] Output: Urine (ml) 200 700 200 Toilet 200 700 200 Other: Weight 60.6 kg 60.1 kg Number of Voids Toilet 1 Number of Stools Toilet 3 Result Diagrams: 08/08/18 16:37 08/10/18 04:50 Cardiac Labs: Cardiac Lab Results (72 Hrs) 08/10/18 04:50 Troponin I 0.279 H - Physical Exam Constitutional: WDWN, healthy appearing, no apparent distress Ears, Nose, Mouth, Throat: moist mucous membranes, no oral ulcers, no thrush Cardiovascular: irregularly irregular Skin: no rashes, no abrasions, no ulcers, warm Neurologic: AAOx3, CN II-XII grossly intact Psychiatric: cooperative, interactive, following commands, not anxious ICD10 Worksheet Patient Problems: Problems Problem Status Onset Atrial fibrillation Acute Chest pain Acute Hyperkalemia Acute Abdominal pain Acute CAD (coronary artery disease) Acute Diabetes mellitus type 2 in obese Acute Elevated troponin Acute Pneumonia Acute Pulmonary embolism Acute Pulmonary hypertension Acute Sick sinus syndrome Acute Urinary tract infection Acute
[2018-08-10] MEDS: CARVEDILOL CR 40 MG CAP PO SCH (17:01)
[2018-08-10] MEDS: ACETAMINOPHEN 325 MG TAB PO PRN (20:16)
--- NOTE | 2018-08-10 20:55 | GCON ---
[f rep st] CONSULTATION CONGESTIVE HEART FAILURE CONSULT DATE OF CONSULTATION: 08/10/2018 REASON FOR CONSULTATION: Evaluate woman with acute on chronic ischemic systolic heart failure and re commend future CHF management. HISTORY OF PRESENT ILLNESS: The patient is an 83-year-old woman with a complex medical history. Fro m a heart standpoint, she has coronary artery disease status post previous left circumflex and LAD st ents. She has chronic ischemic cardiomyopathy with an LVEF of 35% and a pacemaker and paroxysmal atr ial tachycardia. Other past medical history includes diabetes mellitus and previous GI bleed. Her l ast heart catheterization in June of 2017 demonstrated patent LAD and circumflex stents with an L VEF of 25%. She was hospitalized with symptomatic atrial tachycardia. An echo done on 08/09/2018, [place] murphytrated an LVEF of 37% with diastolic dysfunction and normal RV function. She has mild to modera te aortic stenosis and moderate aortic insufficiency with mild mitral regurgitation and chronic moder ate to severe tricuspid insufficiency. Estimated PA pressure is 52 mmHg. Currently, she is tired an d feels her abdomen is bloated. She continues to have heart palpitations. She reports she is short of breath at rest and can walk about 10-20 feet. She denies chest pain, TIA symptoms, or syncope. H er Aldactone has been held because of elevated serum potassium level. PAST MEDICAL HISTORY: Coronary artery disease as per HPI, chronic ischemic systolic heart failure wi th an LVEF of 35% and Class 3-4 [place] [employer] symptoms. Diabetes mellitus, previous GI bleed, and paroxysmal atrial tachycardia. PAST SURGICAL HISTORY: LAD and circumflex stents remotely, permanent pacemaker, appendectomy, cholec ystectomy, and partial colectomy. CURRENT MEDICATIONS: Salt tablets 1 g b.i.d., amiodarone 200 mg daily, aspirin 81 mg per day, Coreg CR 40 mg per day, Lovenox 60 mg subcu b.i.d., Synthroid 112 mcg per day, Demadex 5 mg per day. Of no te, Aldactone has been held. ALLERGIES: As per [employer]. SOCIAL HISTORY: Patient is . She does not smoke or use excessive alcohol intake. FAMILY HISTORY: Positive for coronary artery disease. REVIEW OF SYSTEMS: The patient reports no recent fevers, chills or significant weight gain. She has had no GI bleed symptoms recently, such as hematemesis, melena, or bright red blood per rectum. Res t of 10-point review of systems is negative. PHYSICAL EXAM: GENERAL: Older, tired-appearing woman in no acute distress without chest pain or usi ng excess respiratory muscles. VITAL SIGNS: Afebrile. Pulse 95, blood pressure 96/65, respirations 20, weight 60 kg. NECK: Jugular venous pressure to 8 cm. Carotid pulses 2+ bilaterally with no ob vious bruits. No thyromegaly noted. LUNGS: Clear to auscultation bilaterally without rales, rhonch i, or wheezing. HEART: Regular rate and rhythm with 2/6 holosystolic murmur and positive S3 gallop. ABDOMINAL: Mildly distended. No guarding or rebound. No obvious ascites. EXTREMITIES: 2+ perip heral pulses including femoral and pedal pulses. Trace bilateral pretibial edema. MUSCULOSKELETAL: No scoliosis. NEURO: Normal affect and mood. Neck: No nuchal rigidity. SKIN: No bleeding or cy anosis. LABS: Sodium 128, potassium 5.2, chloride 97, bicarb 22, BUN 27, creatinine 1.1, glucose 122. Tropo margaret 0.3. LFTs within normal limits. TSH 5.4, LDL cholesterol 93. IMPRESSION AND PLAN: 83-year-old woman with history of coronary artery disease status post remote le ft circumflex and left anterior descending stents with chronic ischemic systolic heart failure with a left ventricular ejection fraction of 35% and automatic implantable cardioverter-defibrillator with paroxysmal atrial tachycardia. On exam, she appears euvolemic currently. I am hopeful with the [facility] in the pacemaker settings, she will start to stabilize her left ventricular function, which could have a component of tachycardia mediated decline. I am a little bit leery about her being on salt ta blets long-term and would like her back on Demadex and Aldactone once her electrolytes are stable wit h her chronic moderate to severe mitral regurgitation. PLAN: 1. For now, no change in current medications. 2. We will get labs in the morning including a CBC, BMP panel, and BNP level. 3. Low threshold to stop salt tablets. 4. Once her serum potassium and sodium are stable, would restart a low-dose Demadex and Aldactone. 5. For now I do not think she needs [place] catheter hemodynamics. Thank you for allowing me to participate in the care of the patient. I will follow along closely tee moreno during her hospitalization. /[id number]/MODL
[2018-08-10] MEDS: INSULIN GLARGINE 100 UNITS/ML UNIT SC SCH (21:00)
[2018-08-11] MEDS: ENOXAPARIN 60 MG/0.6 ML SYR SC SCH ×3 (06:10→21:13)
[2018-08-11] MEDS: LEVOTHYROXINE 112 MCG TAB PO SCH (06:10)
[2018-08-11] MEDS ORDERED: TORSEMIDE 10 MG TAB PO SCH (08:00)
[2018-08-11] MEDS: OMEGA-3 FATTY ACIDS 1,000 MG CAP PO SCH (09:00)
[2018-08-11] MEDS: ASPIRIN EC 81 MG TAB PO SCH (09:01)
[2018-08-11] MEDS: AMIODARONE HCL 200 MG TAB PO SCH (09:02)
[2018-08-11] MEDS: SODIUM CHLORIDE 1,000 MG TAB PO SCH (09:03)
[2018-08-11] MEDS: INSULIN LISPRO 100 UNIT/ML SC SCH ×4 (09:07→21:12)
--- NOTE | 2018-08-11 09:59 | SOAPPROG ---
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 She is feeling a little better this AM with no more heart racing. She still feels her abdomen is swollen and she is short of breath at rest. Denies CP, syncope or GI bleeding symptoms. No bowel movement she reports in last two days. I think her serum hyponatremia is partly related to CHF and free water excess. PLAN: 1)lasix 60mg IV x one now 2)start Demadex 40mg PO qam later this afternoon. 3)start Aldactone 25mg PO qam. 4)stop NACL tabs. 5)hopefully start Losartan or Entresto tomorrow if SBP > 100. 6)recheck labs this afternoon (CBC and BMP). 08/11/18 09:55 Subjective: she feels a little better than yesterday mostly she is happy her heart is not racing anymore. Denies CP, syncope or GI bleeding symptoms. She is short of breath at rest and feels abdomen is swollen. Objective: Vital Signs Temp Pulse Resp BP Pulse Ox 36.4 C 60 20 109/60 93 08/11/18 08:00 08/11/18 08:00 08/11/18 08:00 08/11/18 08:00 08/11/18 08:00 Laboratory Results 08/11/18 04:12 08/11/18 04:12 08/10/18 08/11/18 08/12/18 05:59 05:59 05:59 Intake Total 968 1211 Output Total 700 650 100 Balance 268 561 -100 PT 13.9 SEC (12.0-15.0) 08/08/18 16:37 INR 1.11 (0.83-1.16) 08/08/18 16:37 Physical Exam - Physical Exam General Appearance: alert EENT: normal ENT inspection Neck: full range of motion Respiratory: lungs clear Cardiac/Chest: regular rate, rhythm, gallop, JVD (JVP to 8cm.), systolic murmur Peripheral Pulses: 2+: carotid (R), carotid (L), femoral (R), femoral (L), dorsalis-pedis (R), dorsalis-pedis (L) Abdomen: distended, hepatomegaly, No guarding, No rebound, No ascites Skin: warm/dry Extremities: No pedal edema Neuro/Psych: alert ICD10 Worksheet Patient Problems: Problems Problem Status Onset Atrial fibrillation Acute Chest pain Acute Hyperkalemia Acute Abdominal pain Acute CAD (coronary artery disease) Acute Diabetes mellitus type 2 in obese Acute Elevated troponin Acute Pneumonia Acute Pulmonary embolism Acute Pulmonary hypertension Acute Sick sinus syndrome Acute Urinary tract infection Acute
[2018-08-11] MEDS ORDERED: FUROSEMIDE 40 MG/4 ML VIAL IVP ONE (10:01)
[2018-08-11] MEDS: SPIRONOLACTONE 25 MG TAB PO SCH (11:00)
--- NOTE | 2018-08-11 13:43 | PDINTPN ---
[facility] [place] Progress Note Assessment/Plan: ASSESSMENT 83-year-old female admitted with decompensated systolic heart failure worsened by atrial fibrillation and right ventricular pacing # acute decompensated systolic heart failure. Current decompensation nonischemic in nature and driven by RV pacing # atrial fibrillation and sick sinus syndrome requiring dual chamber pacer. Reprogrammed by Dr. Duran. Pending clinical course of cardiomyopathy may change to biventricular pacing. Loaded with IV amnio now on oral # hypotension. Improved. Decompensated heart failure, amiodarone bolus as well as outpatient medications. # hypervolemia # hypervolemic hyponatremia. due to CHF and hypervolemia. Urine Na high but already received diuretics # history of pulmonary embolism. On lifelong anticoagulation as outpatient # diabetes type 2 # hypothyroidism PLAN # needs lovenox (renally dosed from 60 to 50 bid 08/10/18) or hep gtt while in patient with possible procedures however needs lifelong systemic anticoagulation for prior PE and atrial fibrillation # stop glipizide given hypoglycemia and marginal renal function # agree with diuresis # stop Na tabs and continue diuresis # agree with entresto or similar per Dr Bonner # continue synthroid, increased 08/10/18 # agree with amiodarone # insulin basal +bolus while inpatient # Feeding - cardiac diet # Analgesia APAP # Sedation none # Thromboprophylaxis - lovenox # Head of bed elevated # Ulcer prophylaxis - not indicated # Glucose SSI # Skin no skin breakdown # Delirium - delirium precautions # Make SDU status Subjective: Slept well overnight. Hypoglycemic with marginal renal function on glipizide. Improved with correction. Lovenox renally dosed this a.m. And glipizide.. No chest pain, no fevers, chills cause nausea, vomiting, shortness of breath. Objective: Vital Signs Temp Pulse Resp BP Pulse Ox 36.4 C 61 18 121/67 H 93 08/11/18 08:00 08/11/18 12:00 08/11/18 12:00 08/11/18 12:00 08/11/18 12:00 Laboratory Results 08/11/18 04:12 08/11/18 04:12 08/10/18 08/11/18 08/12/18 05:59 05:59 05:59 Intake Total 968 1211 200 Output Total 700 650 100 Balance 268 561 100 PT 13.9 SEC (12.0-15.0) 08/08/18 16:37 INR 1.11 (0.83-1.16) 08/08/18 16:37 Physical Exam - Physical Exam General Appearance: alert, no apparent distress EENT: PERRL/EOMI, normal ENT inspection Neck: non-tender, full range of motion Respiratory: chest non-tender, lungs clear Cardiac/Chest: normal peripheral pulses, other (V paced, no tachycardia) Abdomen: normal bowel sounds, non-tender Back: Normal inspection Skin: normal color, warm/dry, No cyanosis Extremities: normal range of motion, non-tender, pedal edema Neuro/Psych: no motor/sensory deficits, alert, normal mood/affect, oriented x 3 ICD10 Worksheet Patient Problems: Problems Problem Status Onset Atrial fibrillation Acute Chest pain Acute Hyperkalemia Acute Abdominal pain Acute CAD (coronary artery disease) Acute Diabetes mellitus type 2 in obese Acute Elevated troponin Acute Pneumonia Acute Pulmonary embolism Acute Pulmonary hypertension Acute Sick sinus syndrome Acute Urinary tract infection Acute
[2018-08-11] MEDS: TORSEMIDE 20 MG TAB PO SCH (15:20)
[2018-08-11] MEDS: CARVEDILOL CR 40 MG CAP PO SCH (16:56)
[2018-08-11] MEDS ORDERED: MAGNESIUM HYDROXIDE 30 ML UDCUP PO PRN (20:59)
[2018-08-11] MEDS ORDERED: POLYETHYLENE GLYCOL 3350 17 GM PKT PO PRN (20:59)
[2018-08-11] MEDS ORDERED: INSULIN GLARGINE 100 UNITS/ML UNIT SC SCH (21:00)
[2018-08-11] MEDS: MELATONIN 3 MG TAB PO SCH (21:12)
[2018-08-11] MEDS: SENNOSIDES/DOCUSATE SODIUM TAB PO SCH (21:12)
[2018-08-11] MEDS: FLUTICASONE NASAL 120 SPRAYS/16 GM MDI EACHNARE SCH (21:14)
[2018-08-12] MEDS: D50W 25 GM/50 ML SYR IVP PRN ×2 (01:59→07:32)
[2018-08-12] MEDS: LEVOTHYROXINE 112 MCG TAB PO SCH (06:24)
[2018-08-12] MEDS: INSULIN LISPRO 100 UNIT/ML SC SCH ×4 (09:03→21:04)
[2018-08-12] MEDS: OMEGA-3 FATTY ACIDS 1,000 MG CAP PO SCH (09:03)
[2018-08-12] MEDS: SENNOSIDES/DOCUSATE SODIUM TAB PO SCH ×2 (09:04→21:03)
[2018-08-12] MEDS: AMIODARONE HCL 200 MG TAB PO SCH (09:05)
[2018-08-12] MEDS: ASPIRIN EC 81 MG TAB PO SCH (09:05)
[2018-08-12] MEDS: SPIRONOLACTONE 25 MG TAB PO SCH (09:05)
--- NOTE | 2018-08-12 10:02 | SOAPPROG ---
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 She is tired and weak but feels less bloated and short of breath. Serum NA 125>> 129 with IV diuresis. She is still mildly hypervolemic. REC: 1)start Entresto 24/26mg PO BID 2)stop Demadex 3)rest of meds without changes. 4)okay to transfer to PCU today 5)PT daily and decide if home or to SNF in 2-3 days once NA> 130. 08/12/18 09:59 Subjective: she is tired and weak and constipated. Denies CP, sense of heart racing anymore or PND or near syncope. She feels her body is less swollen but not at baseline compared to yesterday. Objective: Vital Signs Temp Pulse Resp BP Pulse Ox 35.7 C L 64 21 H 113/69 94 08/12/18 07:39 08/12/18 07:39 08/12/18 07:39 08/12/18 07:39 08/12/18 07:39 Laboratory Results 08/12/18 04:20 08/12/18 04:20 08/11/18 08/12/18 08/13/18 05:59 05:59 05:59 Intake Total 1211 1000 Output Total 650 100 Balance 561 900 PT 13.9 SEC (12.0-15.0) 08/08/18 16:37 INR 1.11 (0.83-1.16) 08/08/18 16:37 Physical Exam - Physical Exam General Appearance: alert EENT: normal ENT inspection Neck: non-tender Respiratory: lungs clear Cardiac/Chest: regular rate, rhythm, gallop, diastolic murmur, systolic murmur, No JVD Peripheral Pulses: 2+: carotid (R), carotid (L), femoral (R), femoral (L), dorsalis-pedis (R), dorsalis-pedis (L) Abdomen: non-tender, No guarding, No ascites Skin: warm/dry Extremities: No pedal edema Neuro/Psych: alert ICD10 Worksheet Patient Problems: Problems Problem Status Onset Atrial fibrillation Acute Chest pain Acute Hyperkalemia Acute Abdominal pain Acute CAD (coronary artery disease) Acute Diabetes mellitus type 2 in obese Acute Elevated troponin Acute Pneumonia Acute Pulmonary embolism Acute Pulmonary hypertension Acute Sick sinus syndrome Acute Urinary tract infection Acute
[2018-08-12] MEDS: ENOXAPARIN 60 MG/0.6 ML SYR SC SCH ×2 (10:48→21:03)
[2018-08-12] MEDS: TORSEMIDE 20 MG TAB PO SCH (11:18)
--- NOTE | 2018-08-12 13:36 | HOSPPROG ---
Hospitalist Progress Note Assessment/Plan: # sCHF - ICM and NICM, EF 35% - entresto started today - demadex stopped - cont aldactone - cont coreg # atrial tachycardia, inappropriate ppm pacing - reprogrammed by Dr Duran - s/p amio IV # hypoNa - better with diuresis # demand ischemia # CAD s/p stent - cont asa, coreg # chronic resp failure # chronic PE - cont lovenox for now # pulm-htn # DM - lantus - decrease given am hypoglycemia # hypothyroid - synthroid increased Subjective: seen with dtr and ; comfortable; needs to have a BM Objective: Vital Signs Temp Pulse Resp BP Pulse Ox 35.4 C L 63 13 110/55 L 94 08/12/18 11:07 08/12/18 11:07 08/12/18 11:07 08/12/18 11:07 08/12/18 11:07 Laboratory Results 08/12/18 04:20 08/12/18 04:20 08/11/18 08/12/18 08/13/18 05:59 05:59 05:59 Intake Total 1211 1000 Output Total 650 100 Balance 561 900 PT 13.9 SEC (12.0-15.0) 08/08/18 16:37 INR 1.11 (0.83-1.16) 08/08/18 16:37 chart reviewed discussed with dr dominic hoffman reviewed - Physical Exam Constitutional: no apparent distress, appears nourished Cardiovascular: regular rate and rhythym, no murmur, rub, or gallop Respiratory: no respiratory distress, no rales or rhonchi, clear to auscultation Gastrointestinal: soft, non-tender abdomen, no palpable masses, No guarding, No rebound, No distension ICD10 Worksheet Patient Problems: Problems Problem Status Onset Abdominal pain Acute Urinary tract infection Acute Chest pain Acute Hyperkalemia Acute Atrial fibrillation Acute Pulmonary hypertension Acute CAD (coronary artery disease) Acute Sick sinus syndrome Acute Diabetes mellitus type 2 in obese Acute Pneumonia Acute Elevated troponin Acute Pulmonary embolism Acute
[2018-08-12] MEDS: SACUBITRIL/VALSARTAN 24/26MG 1 EA TAB PO SCH ×2 (13:37→21:03)
[2018-08-12] MEDS ORDERED: TORSEMIDE 20 MG TAB PO SCH (15:00)
[2018-08-12] MEDS ORDERED: ONDANSETRON DISINTEGRATING 4 MG TAB PO PRN (17:35)
[2018-08-12] MEDS: CARVEDILOL CR 40 MG CAP PO SCH (18:45)
[2018-08-12] MEDS: MELATONIN 3 MG TAB PO SCH (21:03)
[2018-08-12] MEDS: INSULIN GLARGINE 100 UNITS/ML UNIT SC SCH (21:04)
[2018-08-12] MEDS: FLUTICASONE NASAL 120 SPRAYS/16 GM MDI EACHNARE SCH ×2 (21:04→21:09)
[2018-08-13] MEDS: ACETAMINOPHEN 325 MG TAB PO PRN ×3 (02:18→20:36)
[2018-08-13] MEDS: LEVOTHYROXINE 112 MCG TAB PO SCH (06:08)
[2018-08-13] MEDS: OMEGA-3 FATTY ACIDS 1,000 MG CAP PO SCH (08:14)
[2018-08-13] MEDS: SENNOSIDES/DOCUSATE SODIUM TAB PO SCH ×2 (08:14→20:28)
[2018-08-13] MEDS: SPIRONOLACTONE 25 MG TAB PO SCH (08:14)
[2018-08-13] MEDS: ASPIRIN EC 81 MG TAB PO SCH (08:14)
[2018-08-13] MEDS: SACUBITRIL/VALSARTAN 24/26MG 1 EA TAB PO SCH ×2 (08:14→20:28)
[2018-08-13] MEDS: AMIODARONE HCL 200 MG TAB PO SCH (08:14)
[2018-08-13] MEDS: ENOXAPARIN 60 MG/0.6 ML SYR SC SCH ×2 (08:19→22:43)
[2018-08-13] MEDS: INSULIN LISPRO 100 UNIT/ML SC SCH ×4 (08:19→20:28)
--- NOTE | 2018-08-13 08:54 | SOAPPROG ---
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 She is tired and weak but feels less bloated and short of breath. Hyponatremic at 127. Appears relatively euvolemic now. Just started Entresto yesterday. REC: 1)No change in current meds. 2)am labs (08/14/18): BMP and BNP level 3)if NA continues to fall and SBP < 85, might not be able to tolerate Entresto and will change in Losartan only. 08/13/18 08:51 Subjective: overall feels a little stronger than yesterday. Ambulated 50-100ft with assistance she reports. Denies CP, near syncope or rest shortness of breath or palpitations or PND. Objective: Vital Signs Temp Pulse Resp BP Pulse Ox 36.4 C 60 18 93/45 L 92 08/13/18 07:10 08/13/18 07:10 08/13/18 07:10 08/13/18 07:10 08/13/18 07:10 Laboratory Results 08/12/18 04:20 08/13/18 03:26 08/12/18 08/13/18 08/14/18 05:59 05:59 05:59 Intake Total 1000 400 Output Total 100 300 150 Balance 900 100 -150 PT 13.9 SEC (12.0-15.0) 08/08/18 16:37 INR 1.11 (0.83-1.16) 08/08/18 16:37 Physical Exam - Physical Exam General Appearance: alert EENT: normal ENT inspection Neck: non-tender Respiratory: lungs clear Cardiac/Chest: regular rate, rhythm, gallop, systolic murmur, No JVD Peripheral Pulses: 2+: carotid (R), carotid (L), femoral (R), femoral (L), dorsalis-pedis (R), dorsalis-pedis (L) Abdomen: non-tender, No guarding, No rebound, No ascites Skin: warm/dry Extremities: No pedal edema Neuro/Psych: alert ICD10 Worksheet Patient Problems: Problems Problem Status Onset Atrial fibrillation Acute Chest pain Acute Hyperkalemia Acute Abdominal pain Acute CAD (coronary artery disease) Acute Diabetes mellitus type 2 in obese Acute Elevated troponin Acute Pneumonia Acute Pulmonary embolism Acute Pulmonary hypertension Acute Sick sinus syndrome Acute Urinary tract infection Acute
--- NOTE | 2018-08-13 14:39 | ASMTCMCOM ---
CM Note CM Note Notes: 08/13/2018 Case Management Note Discussed with RN. Therapies recommending home care. Met w/pt and to discuss. Pt has previously used services from [facility]. [facility] on site and met w/pt. Case Management d/c poc: [facility] RN PT OT Case Management to follow. Date Signed: 08/13/2018 02:39 PM Electronically Signed By:Rafia Domínguez RN
--- NOTE | 2018-08-13 17:12 | HOSPPROG ---
Hospitalist Progress Note Assessment/Plan: # sCHF - ICM and NICM, EF 35% - euvolemic today, demedex stopped - entresto started yesterday - cont aldactone - cont coreg # atrial tachycardia, inappropriate ppm pacing - reprogrammed by Dr Duran - s/p amio IV, now on po - needs anticoagulation # hypoNa - better with diuresis, but now trending down again - per cards if Na continues to drop and SBP too low, may have to dc entresto and use losartan only # Troponin elevation likely 2/2 demand ischemia # CAD s/p stent - cont asa, coreg # Digoxin toxicity - level was 2.6, holding Dig # chronic resp failure - on room air here # chronic PE - cont lovenox - likely transition to Eliquis at dc # pulm htn - thought 2/2 recurrent PE # DM - lantus decreased given am hypoglycemia # hypothyroid - synthroid increased, f/u TSH in 4-6 weeks # Full code # Dispo - cont inpt Subjective: Pt feels well. No CP or SOB. No palpitations. No issues overnight. Eating well. Reports difficulty with moving bowels though RN says she had 2 BMs yesterday. Objective: Vital Signs Temp Pulse Resp BP Pulse Ox 36.4 C 60 16 119/54 L 90 L 08/13/18 16:00 08/13/18 16:00 08/13/18 16:00 08/13/18 16:00 08/13/18 16:00 Laboratory Results 08/12/18 04:20 08/13/18 03:26 08/12/18 08/13/18 08/14/18 05:59 05:59 05:59 Intake Total 1000 400 300 Output Total 100 300 500 Balance 900 100 -200 PT 13.9 SEC (12.0-15.0) 08/08/18 16:37 INR 1.11 (0.83-1.16) 08/08/18 16:37 - Physical Exam Constitutional: no apparent distress Eyes: PERRL Ears, Nose, Mouth, Throat: moist mucous membranes Cardiovascular: regular rate and rhythym Respiratory: no respiratory distress, clear to auscultation Gastrointestinal: normoactive bowel sounds, soft, non-tender abdomen Skin: warm Musculoskeletal: full muscle strength Neurologic: AAOx3 Psychiatric: interacting appropriately ICD10 Worksheet Patient Problems: Problems Problem Status Onset Atrial fibrillation Acute Chest pain Acute Hyperkalemia Acute Abdominal pain Acute CAD (coronary artery disease) Acute Diabetes mellitus type 2 in obese Acute Elevated troponin Acute Pneumonia Acute Pulmonary embolism Acute Pulmonary hypertension Acute Sick sinus syndrome Acute Urinary tract infection Acute
[2018-08-13] MEDS: CARVEDILOL CR 40 MG CAP PO SCH (17:54)
[2018-08-13] MEDS: INSULIN GLARGINE 100 UNITS/ML UNIT SC SCH (20:27)
[2018-08-13] MEDS: MELATONIN 3 MG TAB PO SCH (20:28)
[2018-08-13] MEDS: FLUTICASONE NASAL 120 SPRAYS/16 GM MDI EACHNARE SCH (20:30)
[2018-08-14] MEDS: LEVOTHYROXINE 112 MCG TAB PO SCH (04:18)
[2018-08-14] MEDS ORDERED: INSULIN GLARGINE 100 UNITS/ML UNIT SC SCH (06:54)
[2018-08-14] MEDS ORDERED: INSULIN LISPRO 100 UNIT/ML SC SCH (08:00)
[2018-08-14 08:31] VITALS: BP 122/56
[2018-08-14] MEDS: ENOXAPARIN 60 MG/0.6 ML SYR SC SCH (08:41)
[2018-08-14] MEDS: SENNOSIDES/DOCUSATE SODIUM TAB PO SCH (08:42)
[2018-08-14] MEDS: SACUBITRIL/VALSARTAN 24/26MG 1 EA TAB PO SCH (08:43)
[2018-08-14] MEDS: SPIRONOLACTONE 25 MG TAB PO SCH (08:43)
[2018-08-14] MEDS: AMIODARONE HCL 200 MG TAB PO SCH (08:43)
[2018-08-14] MEDS: OMEGA-3 FATTY ACIDS 1,000 MG CAP PO SCH (08:43)
[2018-08-14] MEDS: ASPIRIN EC 81 MG TAB PO SCH (08:44)
--- NOTE | 2018-08-14 09:36 | SOAPPROG ---
SOAP Progress Note Assessment/Plan: Assessment: CHF SOAP NOTE: 83 y/o woman with CAD s/p PCIs remotely to LAD and LCX, chronic ischemic systolic CHF with LVEF 35%, PPM with PAT, IDDM and chronic moderate to severe TR with class III NYHA. She is doing better. Ambulated hallways with mild tiredness and BRYANT. Serum NA up to 130. Appears euvolemic. PLAN: 1)no change in current meds. 2)okay to discharge home today with home care and supplemental O2. 3)will get labs in three days (CBC and BMP). 4)f/u CHF clinic 5-7 days. My office will schedule labs and CHF clinic. 08/14/18 09:29 Subjective: she feels a little better. Denies CP, rest shortness of breath or palpitations. Ambulated in hallway for 100ft. Wants to go home and not to any SNF or inpatient rehab. Objective: Vital Signs Temp Pulse Resp BP Pulse Ox 36.3 C 60 18 122/56 H 95 08/14/18 08:00 08/14/18 08:00 08/14/18 08:00 08/14/18 08:00 08/14/18 08:00 Laboratory Results 08/14/18 03:22 08/14/18 03:22 08/13/18 08/14/18 08/15/18 05:59 05:59 05:59 Intake Total 400 1015 Output Total 300 950 Balance 100 65 PT 13.9 SEC (12.0-15.0) 08/08/18 16:37 INR 1.11 (0.83-1.16) 08/08/18 16:37 Physical Exam - Physical Exam General Appearance: alert EENT: normal ENT inspection, scleral icterus (R) Respiratory: lungs clear Cardiac/Chest: regular rate, rhythm, systolic murmur, No gallop, No JVD (3/6 TR systolic murmur.) Peripheral Pulses: 2+: carotid (R), carotid (L), femoral (R), femoral (L), dorsalis-pedis (R), dorsalis-pedis (L) Abdomen: non-tender, No guarding, No rebound, No ascites Skin: warm/dry Extremities: No pedal edema Neuro/Psych: alert ICD10 Worksheet Patient Problems: Problems Problem Status Onset Atrial fibrillation Acute Chest pain Acute Hyperkalemia Acute Abdominal pain Acute CAD (coronary artery disease) Acute Diabetes mellitus type 2 in obese Acute Elevated troponin Acute Pneumonia Acute Pulmonary embolism Acute Pulmonary hypertension Acute Sick sinus syndrome Acute Urinary tract infection Acute
--- NOTE | 2018-08-14 09:53 | PDIAF ---
- Diagnosis Diagnosis: heart failure, atrial tachycardia Code Status: Full Code - Medication Management Discharge Medications: electronically signed and located in the Home Medication List. - Orders Services needed: Home Care, Registered Nurse, Physical Therapy, Occupational Therapy Home Care Face to Face: I certify that this patient was under my care and that I had the required [id number] encounter meeting the encounter requirements on the discharge day. My findings support the fact that the patient is homebound as defined in Home Care Face to Face Continued: CMS Chapter 7 Medicare Benefits Manual 30.1.1 , The condition of the patient is such that there exists a normal inability to leave home and consequently, leaving home would require a considerable and taxing effort. Diet Recommendation: cardiac -low fat low salt Additional Instructions: Follow up with CHF clinic at [facility]. New meds sent electronically to [facility] with exception of Entresto (hard copy in chart by Dr. Bonner). Slight increase in Levothyroxine dose. Have your TSH rechecked in 4 weeks. Please see new medication list. There have been a lot of changes. Insulin decreased due to some low BG's. Follow up with your PCP for further management. - Follow Up Care Current Providers and Referrals: Yao Bonner MD [Medical Doctor] - NONE *PRIMARY CARE P,. [Unknown] - As per Instructions Coni Ricci DO [Primary Care Provider] -
--- NOTE | 2018-08-14 10:08 | PDHOMEO2F ---
Home Oxygen Face to Face Home Orders: I certify that a physician or a nurse practitioner or physician's bioinformatics assistant has had a [id number] encounter with this patient on the date of this order due to the diagnosis listed, which relates to the primary reason the patient requires home oxygen. Alternative treatments have been tried, or considered, and deemed ineffective. It is anticipated that supplemental oxygen will result in improvement with treatment. Home oxygen qualifying diagnosis: Chronic hypoxemic respiratory failure, pulmonary hypertension, chronic PE SpO2 on room air (%): 87 Frequency of home oxygen needed: continuous Home oxygen liters per minute: 2 LPM Home oxygen delivery device: nasal cannula Concentrator: Yes E-tanks for mobility and back up: Yes If ordering portable O2, is the patient mobile in the home?: Yes I certify that, based on these findings, the home oxygen is medically necessary for this patient for the following length of time. Length of time home oxygen needed: 99 years
--- NOTE | 2018-08-14 11:36 | GDS ---
[f rep st] DISCHARGE SUMMARY DISCHARGE DIAGNOSES: 1. Acute on chronic systolic heart failure. 2. Atrial tachycardia. 3. Hyponatremia. 4. Troponin elevation, likely secondary to demand ischemia. 5. History of coronary artery disease status post stent. 6. Digoxin toxicity. Digoxin is discontinued. 7. Chronic hypoxemic respiratory failure. 8. Chronic pulmonary embolism. 9. Chronic anticoagulation. 10. Pulmonary hypertension, thought secondary to recurrent pulmonary embolus. 11. Diabetes mellitus. 12. Hypothyroidism. CONSULTANTS: 1. Dr. Vinny Duran, electrophysiology. 2. Dr. Yao Bonner, cardiology. 3. Dr. John Sykes, pulmonary critical care. HISTORY: For details, please see history and physical dated 08/08/2018. In brief, the patient is an 83-year-old female with a history of coronary artery disease, cardiomyopathy, pulmonary hypertension, atrial tachycardia, as well as chronic pulmonary embolism, who presented to the emergency department with heart palpitations and shortness of breath. An EKG showed ventricular pacing at 120 beats per minute with an underlying supraventricular tachycardia. She was admitted to the hospital for further management. HOSPITAL COURSE: The patient had her pacemaker interrogated and ultimately reprogrammed by Dr. Duran. She was treated with IV amiodarone and transitioned to oral amiodarone. It was thought her atrial tachycardia was related to inappropriate pacemaker pacing which was improved after reprogramming. She was diuresed with Demadex which was discontinued prior to discharge. She was started on Entresto at the recommendation of Dr. Bonner. She was continued on her Aldactone and Coreg. Her digoxin was discontinued, given a toxic digoxin level of 2.6. She was treated with therapeutic Lovenox during her hospitalization for history of chronic PE and subsequent pulmonary hypertension. This was transitioned to Xarelto at discharge. She has had no further tachycardia issues. She is euvolemic. On the day of discharge, her vital signs are temperature 36.3, blood pressure 122/56, heart rate 60, respiratory rate 18. She is 95% on 2 L. She does already have home oxygen. She was evaluated by our therapy services who recommended home health care. With respect to her diabetes, she had previously taken Lantus 30 units at bedtime. This was down-titrated to just 10 units at bedtime, given some labile blood sugars and hypoglycemic events with sugars as low as 43. Therefore, she was discharged on a lower dose of Lantus, just 10 units at bedtime, and she can up-titrate this as directed by her primary care if her sugars are on the rise. DISPOSITION: Patient is discharged home in stable condition to continue home oxygen at 2 L per minute. Home health care services were ordered including RN, PT/OT. FOLLOWUP: 1. Dr. Yao Bonner, [facility]. 2. Dr. Coni Ricci, primary care. DISCHARGE MEDICATIONS: Please see [facility] for completed outpatient medication list. Medications on discharge include amiodarone 200 mg p.o. daily #30 no refills; levothyroxine 112 mcg p.o. daily #30 no refills, this was increased from 100 mcg due to an elevated TSH, she should have her TSH rechecked in 4 to 6 weeks; Entresto one p.o. b.i.d., a hard copy was provided by Dr. Bonner; Xarelto 20 mg p.o. daily #30 no refills. Changed medications: Insulin glargine was decreased to 10 units subcutaneous q.h.s., spironolactone 25 mg p.o. daily. She will continue her other outpatient medications as previously prescribed. Discontinued medicines: Digoxin, lisinopril, Demadex. /[id number]/MODL MTDD
--- NOTE | 2018-08-14 12:36 | ASMTDCNOTE ---
Case Management Discharge Discharge Order Complete? Answers: Yes Patient to Obtain Answers: via Family Medications Transportation Arranged Answers: Family/Friends Faxed Final Orders Answers: Yes Notes: [facility] Agency/Facility Transfer Answers: Yes Notes: [facility] Report Printed & Faxed to Receiving Agency Discharge Comments Notes: 08/14/2018 Case Management Note Pt discharged home with family support and [facility]. Faxed final orders. Date Signed: 08/14/2018 12:33 PM Electronically Signed By:Rafia Domínguez RN
--- NOTE | 2018-08-14 12:37 | ASDISCHSUM ---
Discharge Information Plan Status:Home with Home Health Medically Cleared to Leave:08/14/2018 Discharge Date:08/14/2018 11:28 AM CM D/C Disposition:Home Health Service ADT D/C Disposition:Home Health Service Projected Discharge Date:08/15/2018 11:00 AM Transportation at D/C:Family Discharge Delay Reason: Follow-Up Date:08/15/2018 11:00 AM Discharge Slot: Final Diagnosis: Placement Information Referral Type:*Home Health Care Services Referral ID:[id number] Provider Name:[facility] Address 1:[address] [place] [address] Address 2: City:[place] Selection Factors: State:[place] Patient Contact Information Contact Name:DAMON Relationship: Address:[address] City:[place] Alternate Phone: State/Zip Code:[place] [address] Email: Financial Information Financial Class:Medicare Primary Plan Desc:MEDICARE INPATIENT Primary Plan Number:[id number] Secondary Plan Desc:[employer] [facility] Secondary Plan Number:[id number] Assessment Information [facility] CM Progress Note CM Note CM Note Notes: Pt care discussed in rounds and chart reviewed for discharge planning. Pt is an 83 yo F presents with Hyperkalemia, chest pain, and tachycardia. Pt has a pacemaker. Cardiology is consulted. Discharge needs TBD. Pt's daughter is supportive and in rounds today. pt lives with her . CM to follow. Plan: TBD Date Signed: 08/09/2018 04:15 PM Electronically Signed By:MAURY Rivera LACE LACE Length of stay for Answers: 4-6 days current admission Acuity / Level of Answers: Yes Care: Did the patient have an inpatient admission? Comorbidities - select Answers: Congestive heart failure all that apply Coronary Artery Disease Diabetes (uncontrolled or controlled) Other Notes: AFib; HTN; Hypothyroid # of Emergency department Answers: 1-2 visits in the last 6 months Score: 14 Date Signed: 08/14/2018 12:32 PM Electronically Signed By:Rafia Domínguez RN [facility] CM Progress Note CM Note CM Note Notes: 08/13/2018 Case Management Note Discussed with RN. Therapies recommending home care. Met w/pt and to discuss. Pt has previously used services from [facility]. [facility] on site and met w/pt. Case Management d/c poc: [facility] RN PT OT Case Management to follow. Date Signed: 08/13/2018 02:39 PM Electronically Signed By:Rafia Domínguez RN Case Management Discharge Plan Note Case Management Discharge Discharge Order Complete? Answers: Yes Patient to Obtain Answers: via Family Medications Transportation Arranged Answers: Family/Friends Faxed Final Orders Answers: Yes Notes: [facility] Agency/Facility Transfer Answers: Yes Notes: [facility] Report Printed & Faxed to Receiving Agency Discharge Comments Notes: 08/14/2018 Case Management Note Pt discharged home with family support and [facility]. Faxed final orders. Date Signed: 08/14/2018 12:33 PM Electronically Signed By:Rafia Domínguez RN Intervention Information Intervention Type:*Incorrect Registration Date of Service:08/09/2018 09:28 AM Patient Type:Inpatient Staff Member:Claudette Garcia Hours: Discipline: Severity: Comment:
== END 2018-08-14 11:28 | disposition home health service (06) | DRG 280 ==
LOC: F2N 19:52 → OBSVTOIN 19:56 → F2N 08-11 18:46 → F2W 08-12 10:55
PROVIDERS: ADMIT Internal Medicine; ATTEND Hospitalist
DX: I97.190 Other postprocedural cardiac functional disturbances following cardiac surgery (principal); I47.1 Supraventricular tachycardia; I50.23 Acute on chronic systolic (congestive) heart failure; I21.A1 Myocardial infarction type 2; E87.5 Hyperkalemia; E87.1 Hypo-osmolality and hyponatremia; J31.0 Chronic rhinitis; I25.10 Atherosclerotic heart disease of native coronary artery without angina pectoris; I25.5 Ischemic cardiomyopathy; I42.8 Other cardiomyopathies; Z95.5 Presence of coronary angioplasty implant and graft; Z95.1 Presence of aortocoronary bypass graft; R79.89 Other specified abnormal findings of blood chemistry; T46.0X5A Adverse effect of cardiac-stimulant glycosides and drugs of similar action, initial encounter; J96.11 Chronic respiratory failure with hypoxia; Z99.81 Dependence on supplemental oxygen; Z86.711 Personal history of pulmonary embolism; Z79.01 Long term (current) use of anticoagulants; I27.24 Chronic thromboembolic pulmonary hypertension; I36.0 Nonrheumatic tricuspid (valve) stenosis; E11.9 Type 2 diabetes mellitus without complications; Z79.4 Long term (current) use of insulin; Z79.84 Long term (current) use of oral hypoglycemic drugs; E03.9 Hypothyroidism, unspecified
CPT/HCPCS: 82435-PO; 82565-PO; 82947-PO; 84132-PO; 84295-PO; 84484-ER; 84520-PO; 85014-ER; 96374; 97116-GP; 97162-GP; 97165-GO; 97535-GO; J0282; J1650; J1815; J1940

== ENCOUNTER 2018-08-21 15:00 | Inpatient (IN) | payer OTHER, BC ==
--- NOTE | 2018-08-21 15:09 | EDPHY ---
H & P Time Seen by Provider: 08/21/18 15:08 - Medical/Surgical History Hx Asthma: No Hx Chronic Respiratory Disease: No Hx Diabetes: Yes Hx Cardiac Disease: Yes Hx Renal Disease: No Hx Cirrhosis: No Hx Alcoholism: No Hx HIV/AIDS: No Hx Splenectomy or Spleen Trauma: No Other PMH: back surgery 2006 and 2008, pacemaker 2006 afib,sss, niddm,stent 2005 and 2015, CAD, Diabetes, CHF, HTN, hypothyroidism - Social History Smoking Status: Never smoked Constitutional: Initial Vital Signs Heart Rate 87 08/21/18 15:18 Respiratory Rate 16 08/21/18 15:18 Blood Pressure 99/62 L 08/21/18 15:18 O2 Sat (%) 93 08/21/18 15:18 O2 Delivery Mode Room Air Allergies/Adverse Reactions: ofloxacin Allergy (Unknown, Verified 08/21/18 15:21) Rash Home Medications: Medication Instructions Recorded Herbals/Supplements -Info Only 1 each PO HS 05/20/13 Sandy-3 Fatty Acids [Fish Oil 1000 1,000 mg PO DAILY@05/20/13 mg (*)] glipiZIDE XL [Glucotrol XL 10 MG 20 mg PO DAILY@08 10/19/15 (*)] Carvedilol Phosphate [Coreg Cr] 40 mg PO DAILY@17 04/11/18 Magnesium Hydroxide [Milk of 30 ml PO Q6H PRN 04/11/18 Magnesia] Amiodarone HCl [Pacerone (*)] 200 mg PO DAILY #30 tab 08/14/18 Insulin Glargine [Lantus 100 10 units SC HS #0 08/14/18 UNITS/ML] Levothyroxine [Synthroid 112 mcg 112 mcg PO DAILY AT 6AM #30 tab 08/14/18 (*)] Rivaroxaban [Xarelto] 20 mg PO DAILY #30 tab 08/14/18 Sacubitril/Valsartan 24/26Mg 1 ea PO BID tab 08/14/18 [Entresto 24 mg/26 mg (RX)] Spironolactone [Aldactone 25 MG 25 mg PO DAILY #0 08/14/18 (*)] Medical Decision Making - Diagnostics Imaging Results: Imaging Impressions Chest X-Ray 08/21/18 15:13 Impression: 1. Findings consistent with congestive heart failure are noted without abbe pulmonary edema. 2. Suspect pulmonary arterial hypertension. 3. Hyperexpansion and peribronchial thickening, most consistent with airways disease.. Imaging: Discussed imaging studies w/ bingo caller Radiologist, I viewed and interpreted images myself ED Course/Re-evaluation: CHIEF COMPLAINT: Shortness of breath HISTORY OF PRESENT ILLNESS: The patient is an anticoagulated (Xarelto) 83 y/o female with a history of a pacemaker, A-fib, cardiac stents, CHF, diabetes, and hyperkalemia complaining of feeling short of breath. The patient was recently discharged from this hospital after being admitted for acute on chronic CHF, chest pain, and shortness of breath. Since being discharged she has felt more short of breath primarily while exerting herself. She has also had chills, a cough, and felt lethargic. Due to these symptoms she decided to present to the emergency department again. No fever, headache, lightheadedness, heart palpitations, shortness of breath, abdominal pain, urinary or bowel complaints, numbness, paresthesias. REVIEW OF SYSTEMS: A comprehensive 10 system review of systems is otherwise negative aside from elements mentioned in the history of present illness and medical decision making. PHYSICAL EXAM: HR, BP, O2 Sat, RR. Temp noted General Appearance: Alert, well hydrated, appropriate, and non-toxic appearing. Head: Atraumatic without scalp tenderness or obvious injury Eyes: Pupils equal, round, reactive to light and accommodation, EOMI, no trauma , no injection. Ears: Clear bilaterally, no perforation, normal landmarks Nose: Atraumatic, no rhinorrhea, clear. Throat: There is no erythema or exudates, no lesions, normal tonsils, mucus membranes moist. Neck: Supple, 2+ carotid upstroke, nontender, no lymphadenopathy. Respiratory: Few rales in bases bilaterally. No retractions, no distress, no wheezes, and no accessory muscle use. Cardiovascular: Regular rate and rhythm, no murmurs, rubs, or gallops. Bilateral carotid, radial, dorsalis pedis, and posterior tibial pulses intact. Good capillary refill all extremities. Gastrointestinal: Abdomen is soft, nontender, non-distended, no masses, no rebound, no guarding, no peritoneal signs. Musculoskeletal: Normal active ROM of all extremities, atraumatic. Neurological: Alert, appropriate, and interactive. The patient has normal DTRs and non-focal cranial nerves, motor, sensory, and cerebellar exam. Skin: No rashes, good turgor, no nodules on palpation. Past medical history: A-fib, CHF, CAD, PE, pulmonary hypertension, hyperkalemia , hyponatremia, Diabetes, hypothyroidism Past surgical history: Pacemaker, cardiac stents, spinal surgery Family history: Denies Social history: Lives in [place], , retired DIAGNOSTICS/PROCEDURES/CRITICAL CARE TIME: EKG: The 12 lead EKG was interpreted by myself as v-paced rhythm with a rate of 86. See hard copy and/or "tracemaster" electronic copy for interpretation. Chest x-ray: Severe cardiomegaly that is worse than last time. Chronic findings of pulmonary hypertension. Critical care time spent by me, Dr. Richardson, exclusively with this patient was 45 minutes, exclusive of PA time and exclusive of procedures. The organ system at risk was renal and cardiopulmonary and I gave insulin, Lasix, bicarbonate, and transferred the patient to the hospitalist to prevent worsening of the patients condition. DIFFERENTIAL DIAGNOSIS: The differential diagnosis for the patient's shortness of breath and hypoxemia included but was not limited to pneumonia, myocardial infarction, acute mountain sickness, high altitude pulmonary edema, congestive heart failure, and pulmonary embolus. MEDICAL DECISION MAKING: The patient is an anticoagulated (Xarelto) 83 y/o female with a history of a pacemaker, A-fib, cardiac stents, CHF, diabetes, and hyperkalemia complaining of feeling short of breath while exerting herself, feeling lethargic, chilled, and having a cough . The patient was recently discharged from this hospital after being admitted for CHF, chest pain, and shortness of breath. On exam the patient has a few rales in the bases. Labs, EKG, and chest x-ray ordered. 1508: I interpreted patient's EKG as v-paced rhythm with a rate of 86. 1537: I spoke with Dr. Sahni, radiologist, regarding patient's chest x-ray. The patient has severe cardiomegaly that is worse than last time. She also has chronic findings of pulmonary hypertension. 1538: Patients potassium is 7.1 and her BNP is worse compared to when she was last discharged. Her creatinine level is okay, but she is in renal insufficiency and acute on chronic CHF. The patient is stable and has a paced rhythm so I am not overly concerned about her heart. 1gm IV Calcium Gluconate, 25gm Dextrose, 20mg IV Lasix, 10mg IV Insulin, Sodium Bicarbonate, and a DuoNeb administered. 1545: I consulted with Dr. Edmondson, sap basis administrator, regarding this patient. He agrees to consult on this patient during her admission. 1549: I consulted with the hospitalist service, Dr. Swanson accepts admission of this patient. 10mg PO Lokelma administered. 1607: Reassessed patient and discussed plan for admission; she is comfortable with this plan. - Data Points Laboratory Results: Laboratory Results 08/21/18 15:05 08/21/18 15:05 08/21/18 08/21/18 08/21/18 15:14 15:05 15:05 WBC RBC Hgb Hct MCV MCH MCHC RDW Plt Count MPV Neut % (Auto) Lymph % (Auto) Metcalfe % (Auto) Eos % (Auto) Baso % (Auto) Nucleat RBC Rel Count Absolute Neuts (auto) Absolute Lymphs (auto) Absolute Monos (auto) Absolute Eos (auto) Absolute Basos (auto) Absolute Nucleated RBC Immature Gran % Immature Gran # Sodium 130 mEq/L L mEq/L (135-145) Potassium 7.1 mEq/L H* mEq/L (3.5-5.2) Chloride 94 mEq/L L mEq/L (97-110) Carbon Dioxide 22 mEq/l mEq/l (22-31) Anion Gap 14 mEq/L mEq/L (6-14) BUN 37 mg/dL H mg/dL (7-23) Creatinine 1.5 mg/dL H mg/dL (0.6-1.0) Estimated GFR 33 Glucose 220 mg/dL H mg/dL (70-100) Calcium 9.5 mg/dL mg/dL (8.5-10.4) Magnesium 2.7 mg/dL H mg/dL (1.6-2.3) POC Troponin I 0.02 ng/mL ng/mL (0.00-0.08) NT-Pro-B Natriuret Pep 5380 pg/mL H pg/mL (0-450) 08/21/18 15:05 WBC 6.47 10^3/uL 10^3/uL (3.80-9.50) RBC 4.38 10^6/uL 10^6/uL (4.18-5.33) Hgb 12.7 g/dL g/dL (12.6-16.3) Hct 39.2 % % (38.0-47.0) MCV 89.5 fL fL (81.5-99.8) MCH 29.0 pg pg (27.9-34.1) MCHC 32.4 g/dL g/dL (32.4-36.7) RDW 17.8 % H % (11.5-15.2) Plt Count 177 10^3/uL 10^3/uL (150-400) MPV 10.4 fL fL (8.7-11.7) Neut % (Auto) 46.2 % % (39.3-74.2) Lymph % (Auto) 42.2 % % (15.0-45.0) Metcalfe % (Auto) 10.0 % % (4.5-13.0) Eos % (Auto) 0.5 % L % (0.6-7.6) Baso % (Auto) 0.5 % % (0.3-1.7) Nucleat RBC Rel Count 0.0 % % (0.0-0.2) Absolute Neuts (auto) 2.99 10^3/uL 10^3/uL (1.70-6.50) Absolute Lymphs (auto) 2.73 10^3/uL 10^3/uL (1.00-3.00) Absolute Monos (auto) 0.65 10^3/uL 10^3/uL (0.30-0.80) Absolute Eos (auto) 0.03 10^3/uL 10^3/uL (0.03-0.40) Absolute Basos (auto) 0.03 10^3/uL 10^3/uL (0.02-0.10) Absolute Nucleated RBC 0.00 10^3/uL 10^3/uL (0-0.01) Immature Gran % 0.6 % % (0.0-1.1) Immature Gran # 0.04 10^3/uL 10^3/uL (0.00-0.10) Sodium Potassium Chloride Carbon Dioxide Anion Gap BUN Creatinine Estimated GFR Glucose Calcium Magnesium POC Troponin I NT-Pro-B Natriuret Pep Medications Given: Discontinued Medications Albuterol/Ipratropium (Duoneb) 3 ml IH EDNOW ONE Stop: 08/21/18 15:14 Last Admin: 08/21/18 15:28 Dose: 3 ml Point of Care Test Results: Chemistry 08/21/18 15:14 POC Troponin I 0.02 ng/mL ng/mL (0.00-0.08) Departure - Departure Disposition: [facility] Inpatient Acute Clinical Impression: Hyperkalemia, Elevated brain natriuretic peptide (BNP) level, Renal insufficiency Congestive heart failure Qualifiers: Heart failure type: unspecified Heart failure chronicity: acute on chronic Qualified Code(s): I50.9 - Heart failure, unspecified Condition: Fair Referrals: Coni Ricci DO [Primary Care Provider] - As per Instructions Report Scribed for: Gilmar Richardson Report Scribed by: Jaylin Travis Date of Report: 08/21/18 Time of Report: 15:10
[2018-08-21] MEDS ORDERED: IPRATROPIUM/ALBUTEROL 3 ML DEYVIAL IH ONE (15:13)
[2018-08-21 15:21] LABS: PLATELET COUNT 177 10^3/uL (150-400)
[2018-08-21] MEDS ORDERED: FUROSEMIDE 40 MG/4 ML VIAL IVP ONE (15:40)
[2018-08-21] MEDS ORDERED: INSULIN REGULAR HUMAN 100 UNIT/ML UNIT IVP ONE (15:40)
[2018-08-21] MEDS ORDERED: D50W 25 GM/50 ML SYR IVP ONE (15:40)
[2018-08-21] MEDS ORDERED: CALCIUM GLUC 10% 1 GM/10 ML VIAL IVP ONE (15:40)
[2018-08-21] MEDS ORDERED: SODIUM BICARBONATE 150 MEQ in D5W 1,000 ML IV ONE (15:40)
[2018-08-21] MEDS ORDERED: SODIUM ZIRCONIUM CYCLOSILICATE 10 GM PACKET PO ONE (15:50)
[2018-08-21] MEDS ORDERED: ONDANSETRON DISINTEGRATING 4 MG TAB PO PRN (16:00)
[2018-08-21] MEDS ORDERED: ACETAMINOPHEN 325 MG TAB PO PRN (16:00)
[2018-08-21] MEDS ORDERED: ONDANSETRON 4 MG/2 ML VIAL IVP PRN (16:00)
--- NOTE | 2018-08-21 17:05 | PDGENHP ---
History and Physical - Chief Complaint SOB - History of Present Illness Sadie Pickard is a 83 yo F with a PMHx of A fib, SSS s/p PPM, CAD s/p stents, DM, Systolic CHF [facility] 3-4, HTN, hypothyroidism who presents to ED for SOB> she reports that she has been having increasing dyspnea on exertion as well as SOB at rest after being recently admitted to the hospital for acute on chronic CHF, SVT. She was taken off of home Torsemide during her last admission. She denies any chest pain, f/c, palpitations, edema, d/c. She does report feeling generally fatigued, bloated, with non-productive cough as well. She does weigh herself daily and has not noticed a significant weight gain since discharge. History Information - Allergies/Home Medication List Allergies/Adverse Reactions: ofloxacin Allergy (Unknown, Verified 08/21/18 15:21) Rash Home Medications: Herbals/Supplements -Info Only 1 each PO HS 05/20/13 [Last Taken 08/21/18] Pitkin-3 Fatty Acids [Fish Oil 1000 mg (*)] 1,000 mg PO DAILY@05/20/13 [Last Taken 08/21/18] glipiZIDE XL [Glucotrol XL 10 MG (*)] 20 mg PO DAILY@10/19/15 [Last Taken ] Carvedilol Phosphate [Coreg Cr] 40 mg PO DAILY@17 04/11/18 [Last Taken 08/20/18] Magnesium Hydroxide [Milk of Magnesia] 30 ml PO Q6H PRN 04/11/18 [Last Taken 21:00] Aspirin EC [Aspirin EC 81 mg (*)] 81 mg PO DAILY 08/21/18 [Last Taken 08/21/18] I have personally reviewed and updated: family history, medical history, social history, surgical history - Past Medical History coronary artery disease, diabetes type 2, hypertension Additional medical history: Chronic Atrial fibrillation, sick sinus syndrome status post pacer, dm 2, HTN, CAD status post stent 2005 2015, systolic and diastolic CHF last echo 2015 EF of 30-35%, hypothyroidism, hard of hearing uses hearing aid, nocturnal hypoxia on supplemental oxygen at HS, pulmonary hypertension, diverticulitis - Surgical History Reports: coronary stent Additional surgical history: Tonsillectomy. partial sigmoidectomy for diverticulitis with concurrent appy. cholecystectomy. Back surgery x2 (2006 and 2008). Knee surgery - Family History Positive for: non-pertinent Additional family history: Both parents are , family history of heart disease, leukemia, uterine cancer, brothers, sisters and son with history of CHF and pacemakers - Social History Smoking Status: Never smoked Additional social history: Normally independent in ADLs. Patient for nearly 66 years. Lives with her . Children live locally and supportive. Cor status is full code but patient does not want prolonged resuscitation or life support. Review of Systems Review of Systems: ROS: 10pt was reviewed & negative except for what was stated in HPI & below Physical Exam Physical Exam: Temp Pulse Resp BP Pulse Ox 87 16 99/62 L 93 08/21/18 15:18 08/21/18 15:18 08/21/18 15:18 08/21/18 15:18 Constitutional: chronically ill appearing Eyes: PERRL Ears, Nose, Mouth, Throat: moist mucous membranes Cardiovascular: JVD, No regular rate and rhythym, No edema Respiratory: no respiratory distress, reduced air movement, inspiratory crackles Gastrointestinal: soft, non-tender abdomen Skin: warm Musculoskeletal: full muscle strength Neurologic: AAOx3 Psychiatric: interacting appropriately Lab Data & Imaging Review 08/21/18 15:05 08/21/18 15:05 WBC 6.47 10^3/uL (3.80-9.50) 08/21/18 15:05 RBC 4.38 10^6/uL (4.18-5.33) 08/21/18 15:05 Hgb 12.7 g/dL (12.6-16.3) 08/21/18 15:05 Hct 39.2 % (38.0-47.0) 08/21/18 15:05 MCV 89.5 fL (81.5-99.8) 08/21/18 15:05 MCH 29.0 pg (27.9-34.1) 08/21/18 15:05 MCHC 32.4 g/dL (32.4-36.7) 08/21/18 15:05 RDW 17.8 % (11.5-15.2) H 08/21/18 15:05 Plt Count 177 10^3/uL (150-400) 08/21/18 15:05 MPV 10.4 fL (8.7-11.7) 08/21/18 15:05 Neut % (Auto) 46.2 % (39.3-74.2) 08/21/18 15:05 Lymph % (Auto) 42.2 % (15.0-45.0) 08/21/18 15:05 [place] % (Auto) 10.0 % (4.5-13.0) 08/21/18 15:05 Eos % (Auto) 0.5 % (0.6-7.6) L 08/21/18 15:05 Baso % (Auto) 0.5 % (0.3-1.7) 08/21/18 15:05 Nucleat RBC Rel Count 0.0 % (0.0-0.2) 08/21/18 15:05 Absolute Neuts (auto) 2.99 10^3/uL (1.70-6.50) 08/21/18 15:05 Absolute Lymphs (auto) 2.73 10^3/uL (1.00-3.00) 08/21/18 15:05 Absolute Monos (auto) 0.65 10^3/uL (0.30-0.80) 08/21/18 15:05 Absolute Eos (auto) 0.03 10^3/uL (0.03-0.40) 08/21/18 15:05 Absolute Basos (auto) 0.03 10^3/uL (0.02-0.10) 08/21/18 15:05 Absolute Nucleated RBC 0.00 10^3/uL (0-0.01) 08/21/18 15:05 Immature Gran % 0.6 % (0.0-1.1) 08/21/18 15:05 Immature Gran # 0.04 10^3/uL (0.00-0.10) 08/21/18 15:05 Sodium 130 mEq/L (135-145) L 08/21/18 15:05 Potassium 7.1 mEq/L (3.5-5.2) H* 08/21/18 15:05 Chloride 94 mEq/L (97-110) L 08/21/18 15:05 Carbon Dioxide 22 mEq/l (22-31) 08/21/18 15:05 Anion Gap 14 mEq/L (6-14) 08/21/18 15:05 BUN 37 mg/dL (7-23) H 08/21/18 15:05 Creatinine 1.5 mg/dL (0.6-1.0) H 08/21/18 15:05 Estimated GFR 33 08/21/18 15:05 Glucose 220 mg/dL (70-100) H 08/21/18 15:05 Calcium 9.5 mg/dL (8.5-10.4) 08/21/18 15:05 Magnesium 2.7 mg/dL (1.6-2.3) H 08/21/18 15:05 POC Troponin I 0.02 ng/mL (0.00-0.08) 08/21/18 15:14 NT-Pro-B Natriuret Pep 5380 pg/mL (0-450) H 08/21/18 15:05 Assessment & Plan Assessment: Acute Exacerbation of Congestive heart failure - Hx of CHF, recent admission for volume overload - Per chart review, patient was taken off of diuretic (Torsemide during last admission), started on Entresto - CXR on admission with abbe pulmonary edema presen, BNP elevated to 5380 - Also with SHUKRI and hyperkalemia on admission, likely 2/2 to cardiorenal and also on Aldactone - S/p 20 mg IVP Lasix in ED, will continue 20 mg IVP BID - Will hold home Aldactone in setting of hyperkalemia, restart when level improved - Will continue Coreg, hold Entresto overnight as well in setting of hyperkalemia - Cardiology consulted in ED, f/u recommendations Hyperkalemia (Acute) - K 7.1 on admission - S/p Ca Gluconate, Insulin/D50, Albuterol Neb, Lasix, and Lokelma - In setting of SHUKRI, lack of diuretics, as well as aldactone - Will monitor K [id number] starting at 6pm this evening, repeat treatment as needed - Holding medications including aldactone, Entresto as above SHUKRI (Acute) - Cr 1.5 on admission, 1.2 at time of last discharge - Likely cardiorenal in setting of CHF exacerbation as above - Diuretics as above - Continue to monitor I/O, BMP, avoid nephrotoxic agents Hyponatremia - Na 130 on admission, similar at time of recent discharge - Continue to monitor in setting of IV diuresis as above Atrial tachycardia - Noted on recent admission, PPM reprogrammed by Dr Duran - S/p francis IV on last admission, continue home dose upon med rec - Continue home Xarelto CAD s/p stent - cont home Asa, Coreg Chronic PE - continue home Xarelto as above DM - Continue home Lantus 10 units qd and Glipizide - Will order SSI as IP Hypothyroid - Continue home Synthroid FEN: Renal diet DVT PPx: Home Xarelto CODE: FULL Dispo: Admit to Medicine
[2018-08-21] MEDS ORDERED: D50W 25 GM/50 ML SYR IVP PRN (17:21)
[2018-08-21] MEDS: INSULIN LISPRO 100 UNIT/ML SC SCH (18:18)
--- NOTE | 2018-08-21 19:21 | CPEKG ---
Test Reason : OPEN Blood Pressure : / mmHG Vent. Rate : 086 BPM Atrial Rate : 000 BPM P-R Int : 238 ms QRS Dur : 239 ms QT Int : 522 ms P-R-T Axes : 231 -84 094 degrees QTc Int : 625 ms Ventricular-paced rhythm Confirmed by Gilmar Richardson ([id number]) on 08/21/2018 7:20:46 PM Referred By: Gilmar Richardson Confirmed By:Gilmar Richardson
[2018-08-21] MEDS: SODIUM ZIRCONIUM CYCLOSILICATE 10 GM PACKET PO SCH (20:26)
[2018-08-21] MEDS: CARVEDILOL CR 40 MG CAP PO SCH (20:37)
[2018-08-21] MEDS ORDERED: INSULIN GLARGINE 100 UNITS/ML UNIT SC SCH (21:00)
[2018-08-22] MEDS: LEVOTHYROXINE 112 MCG TAB PO SCH (05:09)
[2018-08-22] MEDS: SODIUM ZIRCONIUM CYCLOSILICATE 10 GM PACKET PO SCH ×2 (05:10→13:54)
[2018-08-22] MEDS: INSULIN LISPRO 100 UNIT/ML SC SCH ×3 (07:26→17:32)
[2018-08-22] MEDS: FUROSEMIDE 20 MG/2 ML VIAL IVP SCH ×2 (07:39→13:54)
[2018-08-22] MEDS: RIVAROXABAN 20 MG TAB PO SCH (07:40)
[2018-08-22] MEDS: ASPIRIN EC 81 MG TAB PO SCH (07:40)
[2018-08-22] MEDS: AMIODARONE HCL 200 MG TAB PO SCH (07:40)
--- NOTE | 2018-08-22 08:22 | HOSPPROG ---
Hospitalist Progress Note Assessment/Plan: 83yo F with CAD s/p remote PCI with ICM (LVEF 35%), atach with PPM, IDDM here with heart failure, hyperkalemia, and hypoglycemia. #Acute decompensated systolic CHF: Very mild exacerbation. - Continue IV lasix 20mg BID today (may need maintenance diuretic at dc) - Cardiology consulted. Plan to resume entresto today (dosing per cards) and monitor K and renal fxn for at least 24 hrs - Continue home coreg - Holding on spironolactone #Critical hyperkalemia: D/t entresto + aldactone + SHUKRI. Now normalized after appropriate therapies. - Monitor BID #SHUKRI: Cardiorenal, improving - Monitor daily with diuresis #Symptomatic hypoglycemia: D/t insulin/sulfonylurea in setting of renal insufficiency. Now resolved. - Stopped lantus and glipizide - Continue SSI. Will likely need some basal coverage but would like to see her insulin requirements over the course of the day - I think it would be reasonable to permanently discontinue glipizide at discharge #CAD s/p stents - On aspirin, statin, beta larry #Atrial tachycardia: Rates controlled. - PPM reprogrammed by Dr Duran last admission - Continue amiodarone #Chronic PE - On xarelto #IDDM - Insulin mgmt per above #Hypothyroid - Home LT4 replacement Diet: low salt Code: full Dispo: remain inpatient. possibly home in 24-48 hours pending stability in potassium on heart failure therapies Subjective: Doing well this morning. Breathing a bit easier than when she came in. No chest pain. Was symptomatic with hypoglycemia overnight. Objective: Vital Signs Temp Pulse Resp BP Pulse Ox 36.6 C 89 18 104/59 L 91 L 08/22/18 07:35 08/22/18 07:35 08/22/18 07:35 08/22/18 07:35 08/22/18 07:35 Laboratory Results 08/22/18 05:06 08/21/18 08/22/18 08/23/18 05:59 05:59 05:59 Intake Total 1500 Output Total 425 Balance 1075 - Physical Exam Constitutional: no apparent distress, other (elderly) Eyes: PERRL, anicteric sclera Ears, Nose, Mouth, Throat: moist mucous membranes Cardiovascular: regular rate and rhythym, no murmur, rub, or gallop, No edema Respiratory: no respiratory distress, reduced air movement (bases) Gastrointestinal: normoactive bowel sounds, soft, non-tender abdomen, no palpable masses Genitourinary: no bladder fullness, no bladder tenderness, no renal bruits Skin: no rashes or abrasions, no fluctuance, no induration Musculoskeletal: full muscle strength, no muscle tenderness, normal joint ROM Neurologic: AAOx3 Psychiatric: interacting appropriately ICD10 Worksheet Patient Problems: Problems Problem Status Onset Congestive heart failure Acute Elevated brain natriuretic peptide (BNP) level Acute Hyperkalemia Acute Renal insufficiency Acute Abdominal pain Acute Atrial fibrillation Acute CAD (coronary artery disease) Acute Chest pain Acute Chronic Disease Mgmt/Transitional Care Acute Diabetes mellitus type 2 in obese Acute Elevated troponin Acute Pneumonia Acute Pulmonary embolism Acute Pulmonary hypertension Acute Sick sinus syndrome Acute Urinary tract infection Acute
--- NOTE | 2018-08-22 09:37 | ASMTCMCOM ---
CM Note CM Note Notes: Pt admitted to hospital for SOB, has a lengthy PMhx but lives at home with her and is normally independent with her ADLs. Dc needs uncertain, CM w/f. DC Plan: TBD Date Signed: 08/22/2018 09:36 AM Electronically Signed By:Sarah Oreilly RN
--- NOTE | 2018-08-22 10:24 | PDCARPN ---
Cardiology Progress Note Chief Complaint: Shortness of breath with hyperkalemia and renal insufficiency Assessment/Plan: Assessment: Patient is an 83 y/o female with history of atrial fibrillation (on Xarelto with [id number] score of 6), SSS s/p PPM, DM, HTN, ARF (Cr at baseline at 1.2, but elevated to 1.5 at the time of this admission), chronic PE (also on Xarelto) , hypothyroidism, ischaemic CMP (EF of 30%), and CAD s/p PCI (LAD), who presents back to [facility] with complaints of acutely significant shortness of breath , weakness, and fatigue. Patient was just discharged on 08-14-18 for CHF exacerbation. At that time, changes to medical therapy were made (torsemide was stopped, aldactone was increased from every other day to once daily, and entresto was started). Shortness of breath was acutely more significant on the night of 08-20-18, which led to readmission on 08-11-18. No complaints of chest pains or pressure. PND and orthopnea were noted in association with the shortness of breath. Patient was scheduled to follow up with Dr. Stanislaw Bonner on 08-24-18. Home nursing had been following the patient, but according to the daughter, no labs were drawn. At the time of admission, creatinine elevation ( 1.5) was noted as well as hyperkalemia (7.1). BNP with the last admission was noted to be 1720, and with this admission 5380. Lasix therapy was started, aldactone therapy and entresto therapies were stopped. No lower extremity edema was appreciated by the patient. Today, potassium and creatinine are back to baseline for the patient. No significant weight changes were noted between discharge on 08-14-18 and readmission 08-21-18. Patient is feeling better today. The shortness of breath that had been noted is no longer appreciated. Daughter was at bedside today. Plan: (1) Would continue therapy on Xarelto for history of chronic PE and atrial fibrillation (2) ASA therapy should continue with CAD/PCI history (3) Oral DM and insulin therapy to continue with DM history (4) Would maintain lower dose lasix (20 mg) for the symptoms that were noted at the time of admission as well as long standing use of diuretic therapy given CHF history - refrain from reintroduction of potassium sparing diuretics for the acute term (5) Coreg to continue as at present with HTN and CHF history (6) Levothyroxine for hypothyroidism should continue (7) Would reintroduce Entresto therapy at 24/26 mg dose twice per day - creatinine clearance was just over 30 for this patient - care with this therapy and this renal function, to the degree that recommendations against potassium sparing diuretic use concomitantly (8) Close assessment of BMP in 12 and 24 hour periods (9) Cardiology will continue to follow this patient over this hospital stay Subjective: Patient feeling better today, but not back to what she would consider "baseline " Reviewed/Discussed With: family, hospitalist Objective: Vital Signs (8 Hrs) Temp Pulse Resp BP Pulse Ox 08/22/18 07:35 36.6 C 89 18 104/59 L 91 L 08/22/18 05:18 60 18 96/51 L 96 08/22/18 03:22 36.6 C 60 20 93/50 L 92 Intake/Output (24 Hrs) 08/21/18 08/22/18 08/23/18 05:59 05:59 05:59 Intake Total 1500 Output Total 425 Balance 1075 Intake: Oral (ml) 500 IV Infused (ml) 1000 Sodium Bicarbonate 150 1000 meq In D5w 1,000 ml @ As Directed IV EDNOW ONE Rx# :[id number] Output: Urine (ml) 425 Toilet 425 Other: Weight 59.874 kg Number of Voids Toilet 1 Number of Stools Toilet 1 Result Diagrams: 08/21/18 15:05 08/22/18 05:06 EKG: ventricular paced rhythm Telemetry: ventricular pacing at 60 bpm - Physical Exam Constitutional: WDWN, healthy appearing, no apparent distress Eyes: PERRL, EOMI Ears, Nose, Mouth, Throat: moist mucous membranes Cardiovascular: regular rate and rhythm, systolic murmur, pulses symmetric bilat , No jugular vein distention Peripheral Pulses: 2+: dorsalis-pedis (R), dorsalis-pedis (L) Respiratory: clear to auscultate bilat, no crackles, no wheezes Gastrointestinal: normoactive bowel sounds Skin: no rashes, no edema Musculoskeletal: no muscular tenderness Neurologic: AAOx3, CN II-XII grossly intact Psychiatric: cooperative, interactive, following commands ICD10 Worksheet Patient Problems: Problems Problem Status Onset Congestive heart failure Acute Elevated brain natriuretic peptide (BNP) level Acute Hyperkalemia Acute Renal insufficiency Acute Abdominal pain Acute Atrial fibrillation Acute CAD (coronary artery disease) Acute Chest pain Acute Chronic Disease Mgmt/Transitional Care Acute Diabetes mellitus type 2 in obese Acute Elevated troponin Acute Pneumonia Acute Pulmonary embolism Acute Pulmonary hypertension Acute Sick sinus syndrome Acute Urinary tract infection Acute
--- NOTE | 2018-08-22 10:55 | PDMN ---
Medical Necessity Medical necessity: Pt meets IP criteria per & MCG M-190; est los >2 mn for eval/tx of acute CHF exacerbation w/acute kidney injury & hyperkalemia (K 7.1); admit for close SDU monitoring, IV diuresis/med management & Cardiology consult ; hx CHF w/recent hospitalization, PE on AC, diabetes; per H&P & order 08/21/18
[2018-08-22] MEDS: CARVEDILOL CR 40 MG CAP PO SCH (18:25)
[2018-08-22] MEDS: SACUBITRIL/VALSARTAN 24/26MG 1 EA TAB PO SCH (21:47)
[2018-08-23] MEDS: SODIUM ZIRCONIUM CYCLOSILICATE 10 GM PACKET PO SCH ×2 (00:13→05:44)
[2018-08-23] MEDS: LEVOTHYROXINE 112 MCG TAB PO SCH (05:43)
[2018-08-23] MEDS: FUROSEMIDE 20 MG/2 ML VIAL IVP SCH (09:11)
[2018-08-23] MEDS: ASPIRIN EC 81 MG TAB PO SCH (09:12)
[2018-08-23] MEDS: RIVAROXABAN 20 MG TAB PO SCH (09:12)
[2018-08-23] MEDS: AMIODARONE HCL 200 MG TAB PO SCH (09:12)
[2018-08-23] MEDS: INSULIN LISPRO 100 UNIT/ML SC SCH ×3 (09:12→18:31)
--- NOTE | 2018-08-23 09:25 | PDCARPN ---
Cardiology Progress Note Chief Complaint: Patient feeling well today, but did not get a good night of sleep Assessment/Plan: Assessment: 08-23-18 Patient feeling fair today, but did not sleep very well last night secondary to interruptions. No chest pains or pressure today. No PND or orthopnea. Patient is up eating breakfast this morning. Resumption of Entresto yesterday ( on the lowest dose given creatinine clearance) with a mild elevation in creatinine noted today. Daughter was not present today, when rounding (she was in earlier and has since left the hospital). Point of care glucose levels have been reasonably well controlled. Blood pressures today are not hypotensive. 08-22-18 Patient is an 83 y/o female with history of atrial fibrillation (on Xarelto with [id number] score of 6), SSS s/p PPM, DM, HTN, ARF (Cr at baseline at 1.2, but elevated to 1.5 at the time of this admission), chronic PE (also on Xarelto) , hypothyroidism, ischaemic CMP (EF of 30%), and CAD s/p PCI (LAD), who presents back to [facility] with complaints of acutely significant shortness of breath , weakness, and fatigue. Patient was just discharged on 08-14-18 for CHF exacerbation. At that time, changes to medical therapy were made (torsemide was stopped, aldactone was increased from every other day to once daily, and entresto was started). Shortness of breath was acutely more significant on the night of 08-20-18, which led to readmission on 08-11-18. No complaints of chest pains or pressure. PND and orthopnea were noted in association with the shortness of breath. Patient was scheduled to follow up with Dr. Stanislaw Bonner on 08-24-18. Home nursing had been following the patient, but according to the daughter, no labs were drawn. At the time of admission, creatinine elevation ( 1.5) was noted as well as hyperkalemia (7.1). BNP with the last admission was noted to be 1720, and with this admission 5380. Lasix therapy was started, aldactone therapy and entresto therapies were stopped. No lower extremity edema was appreciated by the patient. Today, potassium and creatinine are back to baseline for the patient. No significant weight changes were noted between discharge on 08-14-18 and readmission 08-21-18. Patient is feeling better today. The shortness of breath that had been noted is no longer appreciated. Daughter was at bedside today. Plan: (1) Would continue therapy on Xarelto for history of chronic PE and atrial fibrillation (2) ASA therapy should continue with CAD/PCI history (3) Oral DM and insulin therapy to continue with DM history (4) Would maintain lower dose lasix (20 mg) - but change from IV to PO today - refrain from reintroduction of potassium sparing diuretics for the acute term (5) Coreg to continue as at present with HTN and CHF history (6) Levothyroxine for hypothyroidism should continue (7) Entresto therapy at 24/26 mg dose twice per day was started back yesterday , and mild increase in creatinine was noted - would watch the patient through today, and repeat BMP tomorrow (9) Cardiology will continue to follow this patient over this hospital stay Subjective: No cardiovascular complaints Reviewed/Discussed With: hospitalist Objective: Vital Signs (8 Hrs) Temp Pulse Resp BP Pulse Ox 08/23/18 08:00 36.4 C 60 16 101/51 L 91 L 08/23/18 04:00 36.9 C 96 20 110/63 98 Intake/Output (24 Hrs) 08/22/18 08/23/18 08/24/18 05:59 05:59 05:59 Intake Total 1500 1000 200 Output Total 425 1475 100 Balance 1075 -475 100 Intake: Oral (ml) 500 1000 200 IV Infused (ml) 1000 Sodium Bicarbonate 150 1000 meq In D5w 1,000 ml @ As Directed IV EDNOW ONE Rx# :[id number] Output: Urine (ml) 425 1475 100 Toilet 425 1475 100 Other: Weight 59.874 kg 62.2 kg Number of Voids Toilet 1 1 Number of Stools Toilet 1 1 Result Diagrams: 08/21/18 15:05 08/23/18 03:20 Telemetry: ventricular paced rhythm - Physical Exam Constitutional: WDWN, healthy appearing, no apparent distress Eyes: PERRL, EOMI Ears, Nose, Mouth, Throat: moist mucous membranes Cardiovascular: regular rate and rhythm, systolic murmur, pulses symmetric bilat , No jugular vein distention Peripheral Pulses: 2+: dorsalis-pedis (R), dorsalis-pedis (L) Respiratory: clear to auscultate bilat, no crackles, no wheezes Gastrointestinal: normoactive bowel sounds Skin: no rashes, no edema Neurologic: AAOx3, CN II-XII grossly intact Psychiatric: cooperative, interactive, following commands ICD10 Worksheet Patient Problems: Problems Problem Status Onset Congestive heart failure Acute Elevated brain natriuretic peptide (BNP) level Acute Hyperkalemia Acute Renal insufficiency Acute Abdominal pain Acute Atrial fibrillation Acute CAD (coronary artery disease) Acute Chest pain Acute Chronic Disease Mgmt/Transitional Care Acute Diabetes mellitus type 2 in obese Acute Elevated troponin Acute Pneumonia Acute Pulmonary embolism Acute Pulmonary hypertension Acute Sick sinus syndrome Acute Urinary tract infection Acute
--- NOTE | 2018-08-23 09:39 | HOSPPROG ---
Hospitalist Progress Note Assessment/Plan: 83yo F with CAD s/p remote PCI with ICM (LVEF 35%), atach with PPM, IDDM here with heart failure, hyperkalemia, and hypoglycemia. #Acute decompensated systolic CHF: Very mild exacerbation. Appears euvolemic. Cards following - Stop IV lasix (received 20mg already this AM) - Switch to PO torsemide 10mg daily tomorrow (she was on this previously) - Continue entresto, coreg - Recommend avoiding spironolactone #Critical hyperkalemia: Resolved. D/t entresto + aldactone + SHUKRI. - Stop sodium zirconium. Monitor daily #SHUKRI: Cardiorenal. Roughly stable from yesterday, still slightly elevated. - Monitor daily #Symptomatic hypoglycemia: D/t insulin/sulfonylurea in setting of renal insufficiency. Now resolved. - Stopped lantus and glipizide - Continue SSI - I think it would be reasonable to permanently discontinue glipizide at discharge. Will monitor insulin needs and adjust accordingly #CAD s/p stents - On aspirin, statin, beta larry #Atrial tachycardia: Rates controlled. - PPM reprogrammed by Dr Duran last admission - Continue amiodarone #Chronic PE - On xarelto #IDDM - Insulin mgmt per above #Hypothyroid - Home LT4 replacement Diet: low salt Code: full Dispo: remain inpatient. possibly dc 1-2 days. has appt w/Dr Bonner tomorrow. if still inpt, will try and have him see her. if stable tomorrow, possibly dc to that appt Subjective: Doing well this morning, no complaints. No leg swelling or trouble breathing. Objective: Vital Signs Temp Pulse Resp BP Pulse Ox 36.4 C 60 16 101/51 L 91 L 08/23/18 08:00 08/23/18 08:00 08/23/18 08:00 08/23/18 08:00 08/23/18 08:00 Laboratory Results 08/23/18 03:20 08/22/18 08/23/18 08/24/18 05:59 05:59 05:59 Intake Total 1500 1000 200 Output Total 425 1475 100 Balance 1075 -475 100 - Physical Exam Constitutional: no apparent distress, appears nourished, not in pain Eyes: PERRL, anicteric sclera, EOMI Ears, Nose, Mouth, Throat: moist mucous membranes, hearing normal, ears appear normal, no oral mucosal ulcers Cardiovascular: regular rate and rhythym, no murmur, rub, or gallop, No edema Respiratory: no respiratory distress, no rales or rhonchi, clear to auscultation Gastrointestinal: normoactive bowel sounds, soft, non-tender abdomen, no palpable masses Genitourinary: no bladder fullness, no bladder tenderness, no renal bruits Skin: no rashes or abrasions, no fluctuance, no induration Musculoskeletal: full muscle strength, no muscle tenderness, normal joint ROM Neurologic: AAOx3 Psychiatric: interacting appropriately ICD10 Worksheet Patient Problems: Problems Problem Status Onset Congestive heart failure Acute Elevated brain natriuretic peptide (BNP) level Acute Hyperkalemia Acute Renal insufficiency Acute Abdominal pain Acute Atrial fibrillation Acute CAD (coronary artery disease) Acute Chest pain Acute Chronic Disease Mgmt/Transitional Care Acute Diabetes mellitus type 2 in obese Acute Elevated troponin Acute Pneumonia Acute Pulmonary embolism Acute Pulmonary hypertension Acute Sick sinus syndrome Acute Urinary tract infection Acute
[2018-08-23] MEDS: SACUBITRIL/VALSARTAN 24/26MG 1 EA TAB PO SCH ×2 (09:42→20:26)
--- NOTE | 2018-08-23 11:35 | ASMTCMCOM ---
CM Note CM Note Notes: PT/OT both recommending home with no needs. Patient has an appointment with Dr. Ramirez tomorrow. Patient will need inpatient 1-[address] Messer. Will try to have Dr. Ramirez see patient here if she remains inpatient tomorrow. Otherwise patient will d/c independently. CM available if needs arise. Date Signed: 08/23/2018 10:27 AM Electronically Signed By:Erin Ahuja LCSW
[2018-08-23] MEDS: CARVEDILOL CR 40 MG CAP PO SCH (18:29)
[2018-08-24] MEDS: LEVOTHYROXINE 112 MCG TAB PO SCH (06:00)
[2018-08-24] MEDS: INSULIN LISPRO 100 UNIT/ML SC SCH ×2 (08:48→12:48)
[2018-08-24] MEDS: SACUBITRIL/VALSARTAN 24/26MG 1 EA TAB PO SCH (08:52)
[2018-08-24] MEDS: ASPIRIN EC 81 MG TAB PO SCH (08:52)
[2018-08-24] MEDS: RIVAROXABAN 20 MG TAB PO SCH (08:52)
[2018-08-24] MEDS: AMIODARONE HCL 200 MG TAB PO SCH (08:52)
[2018-08-24] MEDS ORDERED: FUROSEMIDE 20 MG TAB PO SCH (09:00)
[2018-08-24] MEDS ORDERED: POLYETHYLENE GLYCOL 3350 17 GM PKT PO PRN (09:26)
[2018-08-24] MEDS ORDERED: MAGNESIUM HYDROXIDE 30 ML UDCUP PO PRN (09:26)
[2018-08-24] MEDS ORDERED: TORSEMIDE 10 MG TAB PO SCH (10:00)
--- NOTE | 2018-08-24 12:29 | ASMTCMCOM ---
CM Note CM Note Notes: Patient case discussed in rounds. Patient will most likely discharge today. Therapy has cleared patient to be discharged home without any needs. CM spoke to Shante with Palliative Care. Patient would like a referral made to [facility]. Referral sent. CM available for changes. Plan: [facility] Date Signed: 08/24/2018 12:25 PM Electronically Signed By:Hailey Patel
--- NOTE | 2018-08-24 12:44 | PDDCSUM ---
Discharge Summary Discharge Summary: Date of Admission: 08/21/2018 Date of Discharge: 08/24/2018 Consultants: cardiology Studies/Procedures: none Discharge Diagnoses: 1. Severe hyperkalemia 2. Acute kidney injury 3. Severe hypoglycemia in setting of diabetes 4. Acute systolic CHF exacerbation 5. CAD s/p remote LAD PCI 6. Atrial fibrillation on xarelto ([id number]) 7. SSS s/p PPM 8. Atrial tachycardia 9. Chronic PE on anticoagulation 10. Hypothyroidism Brief Hospital Course: 83yo F with CAD s/p remote PCI with ICM (LVEF 35%) and IDDM presented with dyspnea found to have mild volume overload, severe hyperkalemia, SHUKRI, and hypoglycemia. She was just hospitalized for a heart failure exacerbation and was started on entresto. Additionally, her spironolactone was continued and diuretics were stopped at time of prior discharge. Her admit labs showed a potassium of 7.1 and creatinine of 1.5 (baseline 1.0). Her critical hyperkalemia normalized with appropriate therapies and her renal function improved to 1.2 with diuresis. Entresto was re-initiated. She received 4 doses of this while hospitalized and her K and Cr remained stable. We did not restart her spironolactone and recommend holding this in the future. She was discharged on torsemide 5mg daily and was euvolemic. She was noted to have symptomatic hypoglycemia with blood glucose in the 30s. This was in the setting of insulin and sulfonylurea use with her SHUKRI. This has been a recurrent issue for her. I stressed the importance that I would much rather have her BG be a little high than dangerously low. Her fasting BG remained in the 120-130s after stopping her basal insulin. I have discontinued her glargine and glipizide. She will use lispro sliding scale with meals at home. Medications: Please refer to EMR for complete list. Changes this admission include 1. Stopped Lantus and Glipizide 2. Started Lispro with meals 3. Stopped Spironolactone 4. Continue Entresto BID 5. Started Torsemide 5mg QD Follow Up Plan: 1. BMP on Saturday 08/26 2. Clinic appt with Dr Bonner on 08/27 or 08/28 3. Monitor blood sugars and follow up with PCP in 7-10 days regarding insulin titration Physical Exam: Vitals and telemetry reviewed, no significant arrhythmias. Alert and oriented, rrr, systolic murmur, lungs clear, abdomen soft and nt, no leg edema or JVD.
[2018-08-24 12:59] VITALS: BP 94/62
--- NOTE | 2018-08-24 14:06 | PDIAF ---
- Diagnosis Code Status: Full Code - Medication Management Discharge Medications: electronically signed and located in the Home Medication List. [facility] Care - Routine: N/A - Orders Services needed: Home Care, Registered Nurse Home Care Face to Face: I certify that this patient was under my care and that I had the required [id number] encounter meeting the encounter requirements on the discharge day. My findings support the fact that the patient is homebound as defined in Home Care Face to Face Continued: CMS Chapter 7 Medicare Benefits Manual 30.1.1 , The condition of the patient is such that there exists a normal inability to leave home and consequently, leaving home would require a considerable and taxing effort. Diet Recommendation: sodium restricted Bautista: Not applicable Additional Instructions: Here are your medication changes: 1. Stop taking your Lantus and glipizide. 2. Start taking Lispro (short acting insulin). I recommend giving yourself 4 units if your blood glucose is greater than 200 with meals. 3. Stop taking spironolactone. 4. Continue taking entresto twice daily. 5. Start taking torsemide 5mg (half a tablet) once daily. You should have blood work done on Friday (08/26). Then you should follow up with Dr Bonner in cardiology clinic either on or Friday of this week. You should call Dr Bonner' office tomorrow to schedule this. Please keep track of your blood sugars and follow up with your primary care doctor in 1-2 weeks to help manage your insulin regimen. - Follow Up Care Current Providers and Referrals: Coni Ricci DO [Primary Care Provider] - As per Instructions
--- NOTE | 2018-08-24 14:37 | PDCARPN ---
Cardiology Progress Note Chief Complaint: Patient reports feeling well today. No cardiovascular complaints. Assessment/Plan: Assessment: 08-24-18 Patient doing well today. Wanting to go home. Blood pressures overnight were controlled. No complaints of chest pains or pressure. No PND or orthopnea. No dizziness or lightheadedness noted. Renal function continues to improve ( 1.2 today). Sleep last night was better than prior nights. Discussion with CHF team about continued use of Entresto as well as hold on Aldactone use ( given renal dysfuction as well as hyperkalemia that was noted at the time of admission). Patient was scheduled to be seen in outpatient clinic today with Dr. Stanislaw Bonner. 08-23-18 Patient feeling fair today, but did not sleep very well last night secondary to interruptions. No chest pains or pressure today. No PND or orthopnea. Patient is up eating breakfast this morning. Resumption of Entresto yesterday ( on the lowest dose given creatinine clearance) with a mild elevation in creatinine noted today. Daughter was not present today, when rounding (she was in earlier and has since left the hospital). Point of care glucose levels have been reasonably well controlled. Blood pressures today are not hypotensive. 08-22-18 Patient is an 83 y/o female with history of atrial fibrillation (on Xarelto with [id number] score of 6), SSS s/p PPM, DM, HTN, ARF (Cr at baseline at 1.2, but elevated to 1.5 at the time of this admission), chronic PE (also on Xarelto) , hypothyroidism, ischaemic CMP (EF of 30%), and CAD s/p PCI (LAD), who presents back to [facility] with complaints of acutely significant shortness of breath , weakness, and fatigue. Patient was just discharged on 08-14-18 for CHF exacerbation. At that time, changes to medical therapy were made (torsemide was stopped, aldactone was increased from every other day to once daily, and entresto was started). Shortness of breath was acutely more significant on the night of 08-20-18, which led to readmission on 08-11-18. No complaints of chest pains or pressure. PND and orthopnea were noted in association with the shortness of breath. Patient was scheduled to follow up with Dr. Stanislaw Bonner on 08-24-18. Home nursing had been following the patient, but according to the daughter, no labs were drawn. At the time of admission, creatinine elevation ( 1.5) was noted as well as hyperkalemia (7.1). BNP with the last admission was noted to be 1720, and with this admission 5380. Lasix therapy was started, aldactone therapy and entresto therapies were stopped. No lower extremity edema was appreciated by the patient. Today, potassium and creatinine are back to baseline for the patient. No significant weight changes were noted between discharge on 08-14-18 and readmission 08-21-18. Patient is feeling better today. The shortness of breath that had been noted is no longer appreciated. Daughter was at bedside today. Plan: (1) ASA therapy for life with CAD/PCI history (2) Aggressive DM therapy should continue (3) Coreg to continue for HTN given CHF history (4) Lasix (PO) should continue for the time being (5) Entresto therapy to continue with dose of 24/ given the patient's renal function (creatinine clearance) (6) Levothyroxine for hypothyroidism (7) Xarelto for chronic PE and history of atrial fibrillation (8) Patient to have labs mid week, this week, and outpatient follow up with Dr. Stanislaw Bonner Subjective: Patient sitting up in chair and feeling good today. Reviewed/Discussed With: hospitalist Objective: Vital Signs (8 Hrs) Temp Pulse Resp BP Pulse Ox 08/24/18 12:00 36.7 C 96 16 94/62 L 95 08/24/18 07:33 36.6 C 60 16 104/56 L 93 Intake/Output (24 Hrs) 08/23/18 08/24/18 08/25/18 05:59 05:59 05:59 Intake Total 1000 550 Output Total 1475 1250 Balance -475 -700 Intake: Oral (ml) 1000 550 Output: Urine (ml) 1475 1250 Toilet 1475 1250 Other: Weight 62.2 kg 61.6 kg Number of Voids Toilet 1 1 Number of Stools Toilet 1 Result Diagrams: 08/21/18 15:05 08/24/18 06:05 Telemetry: ventricular paced rhythm - Physical Exam Constitutional: WDWN, healthy appearing, no apparent distress Eyes: PERRL, EOMI Ears, Nose, Mouth, Throat: moist mucous membranes Cardiovascular: regular rate and rhythm, systolic murmur, pulses symmetric bilat , No jugular vein distention Peripheral Pulses: 2+: dorsalis-pedis (R), dorsalis-pedis (L) Respiratory: clear to auscultate bilat, no crackles Gastrointestinal: normoactive bowel sounds Skin: no edema Musculoskeletal: no muscular tenderness Neurologic: AAOx3, CN II-XII grossly intact Psychiatric: cooperative, interactive, following commands ICD10 Worksheet Patient Problems: Problems Problem Status Onset Congestive heart failure Acute Elevated brain natriuretic peptide (BNP) level Acute Hyperkalemia Acute Renal insufficiency Acute Abdominal pain Acute Atrial fibrillation Acute CAD (coronary artery disease) Acute Chest pain Acute Chronic Disease Mgmt/Transitional Care Acute Diabetes mellitus type 2 in obese Acute Elevated troponin Acute Pneumonia Acute Pulmonary embolism Acute Pulmonary hypertension Acute Sick sinus syndrome Acute Urinary tract infection Acute
[2018-08-24] MEDS ORDERED: SENNOSIDES/DOCUSATE SODIUM TAB PO SCH (21:00)
== END 2018-08-24 14:59 | disposition home or self-care (01) | DRG 640 ==
LOC: EDUNIT# → EDBD → F2N 16:49 → F2W 08-22 16:38
PROVIDERS: ADMIT Internal Medicine; ATTEND Internal Medicine
DX: E87.5 Hyperkalemia (principal); T50.0X5A Adverse effect of mineralocorticoids and their antagonists, initial encounter; T46.995A Adverse effect of other agents primarily affecting the cardiovascular system, initial encounter; N17.9 Acute kidney failure, unspecified; I50.23 Acute on chronic systolic (congestive) heart failure; E87.1 Hypo-osmolality and hyponatremia; J31.0 Chronic rhinitis; I25.10 Atherosclerotic heart disease of native coronary artery without angina pectoris; I25.5 Ischemic cardiomyopathy; I42.8 Other cardiomyopathies; Z95.5 Presence of coronary angioplasty implant and graft; Z95.1 Presence of aortocoronary bypass graft; T46.0X5A Adverse effect of cardiac-stimulant glycosides and drugs of similar action, initial encounter; J96.11 Chronic respiratory failure with hypoxia; Z99.81 Dependence on supplemental oxygen; I48.91 Unspecified atrial fibrillation; Z86.711 Personal history of pulmonary embolism; Z79.01 Long term (current) use of anticoagulants; I27.24 Chronic thromboembolic pulmonary hypertension; I36.0 Nonrheumatic tricuspid (valve) stenosis; E11.649 Type 2 diabetes mellitus with hypoglycemia without coma; T38.3X5A Adverse effect of insulin and oral hypoglycemic [antidiabetic] drugs, initial encounter; Z79.4 Long term (current) use of insulin; Z79.84 Long term (current) use of oral hypoglycemic drugs; E03.9 Hypothyroidism, unspecified
CPT/HCPCS: 84484-ER; 96365; 97116-GP; 97161-GP; 97165-GO; J0610; J1815; J1940

== ENCOUNTER 2018-08-27 18:12 | Inpatient (IN) | payer OTHER, BC | END 2018-08-30 16:34 | LOC: F2W 22:09 ==